=== PATIENT | male | born 1955 | race Caucasian/White ===

== ENCOUNTER → 2017-10-25 13:33 | Outpatient (CLI) | payer BC, SELFPAY ==
--- NOTE | 2017-10-25 13:33 | DT_ITS ---
This patient was seen during an EMR downtime October 21, 2017 - October 28, 2017. This patient may have a combination of paper and electronic documentation or all paper documentation. All documentation is viewable within the e-chart portion of [facility] for each patient visit.
--- NOTE | 2017-10-25 13:33 | DT_ITS ---
This patient was seen during an EMR downtime October 21, 2017 - October 28, 2017. This patient may have a combination of paper and electronic documentation or all paper documentation. All documentation is viewable within the e-chart portion of [facility] for each patient visit.
== END ==
PROVIDERS: Family Provider Internal Medicine; PCP Internal Medicine; Visit Provider Nurse Practitioner
DX: M79.662 Pain in left lower leg (principal)
CPT/HCPCS: 93971

== ENCOUNTER → 2017-10-29 14:01 | Outpatient (CLI) | payer BC, SELFPAY ==
--- NOTE | 2017-10-29 14:05 | CT_ITS ---
STUDY: CT ABDOMEN AND PELVIS WITH CONTRAST REASON FOR EXAM: Male, 62 years old. Suprapubic pain. RADIATION DOSAGE (If Supplied By Facility): CTDIvol = ( 18.10 ) mGy, DLP = ( 1239.42 ) mGycm TECHNIQUE: Transaxial images were obtained from the dome of the diaphragm to the symphysis pubis without oral contrast. 100 ml of Isovue 300 contrast was administered. Sagittal and coronal images were reconstructed. Individualized dose optimization techniques were used for this CT. COMPARISON: None. FINDINGS: The visualized lung bases are unremarkable. There is enlargement of the retrocrural lymph nodes the largest lymph node measures proximately 2.2 cm. The visualized portions of the heart are within normal limits. Normal liver. Normal gallbladder and extrahepatic biliary system. Normal spleen. Normal pancreas. Normal bilateral adrenal glands. Normal right kidney. Normal left kidney. Normal visualized stomach. Normal small intestine. Normal colon. The appendix is visualized and appears normal. Normal abdominal aorta. Normal inferior vena cava. Multiple enlarged retroperitoneal lymph nodes are noted the largest lymph node is in the left aortic region measures 7 6 x 3.5. Normal urinary bladder. Multiple enlarged lymph nodes are seen in the pelvis largest lymph node is in on left side measures 9 x 5 cm encasing the left external iliac vein. There is a partially occlusive thrombus in the left external iliac vein and the left common iliac veins. Normal abdominal wall. Normal osseous structures. CT/Abdomen/Pelvis W IV Cont ONLY IMPRESSION: Recurrent lymphoma involving the lymph nodes above and below the diaphragm and in the pelvis. Deep vein thrombosis in the left common iliac vein and left external iliac vein. N.B. : The above information has been verbally conveyed by Abida Ku MD to Lorena Escamilla, Referring Physician, on 10/29/2017 15:35:05 (ET). Electronically Signed: Abida Ku MD at 15:37 EDT Tel , Service support , N.B. : The above information has been verbally conveyed by Abida Ku MD to Lorena Escamilla, Referring Physician, on 10/29/2017 15:35:05 (ET).
[2017-10-29 14:30] LABS: CREATININE FINGERSTICK 1.1 mg/dL (0.70-1.30)
== END ==
PROVIDERS: Family Provider Internal Medicine; PCP Internal Medicine; Visit Provider Nurse Practitioner
DX: R10.2 Pelvic and perineal pain (principal)
CPT/HCPCS: 74177; Q9967

== ENCOUNTER → 2017-11-05 09:03 | Outpatient (CLI) | payer BC, SELFPAY ==
[2017-11-05] VITALS (10 sets, daily range): BP systolic 114–170; BP diastolic 62–94; PULSE 65–84; RESP 16–23; TEMP 36.5; O2SAT 68–97; BMI 31.3
--- NOTE | 2017-11-05 | ASPIGT_PTH ---
PATIENT: JOSE FRANCISCO SANTACRUZ LOC: CT U#:[id number] AGE/SX: 70/M ROOM: RE11/05/[address]: Dr. Zac Herzog DO : 1955 BED: DIS: SPEC #: [id number] RECD: 11/05/17 11:09 STATUS: RADHA CED #: [id number] ONDINA: 11/05/17 00:[address]: Zac Herzog DEPT: SURGICAL PATHOLOGY RECD BY: Vinicius Funes ENTERED: 11/05/17 11:11 SP TYPE: ASP RAD OTHR DR: Dr. Kylah Hanna DO Tissues: LYMPH NODE BIOPSY Procedures: FNA Specimen Adequacy Special Stain Group II Surgery Specimen Level IV Diff Quik Stain (control) Imprint (control) Cytology Other HEADER OPERATION: CT-guided left lymph node biopsy PRE-OP DIAGNOSIS: Left pelvic adenopathy TISSUE SUBMITTED: Left lymph node biopsy MICROSCOPIC DIAGNOSIS Left lymph node, CT-guided core biopsy: Consistent with involvement by non-Hodgkin diffuse large B-cell lymphoma, non-germinal center cell origin. Flow cytometry studies from [facility] shows B-cell lymphoma, large cell type, complete report is viewable in patient?s EMR. SJ:rg 11/07/17 COMMENT The specimen is evaluated at the time of biopsy by Dr. Haley. Immediate Evaluation = Atypical lymphocytes are noted, adequate for evaluation. Immunohistochemistry ([id number]) supports the above diagnosis. Please make reference to previous specimen ([id number]) fine needle aspiration, left axillary mass and fine needle aspiration, right axillary mass with diagnosis of suspicious for low-grade lymphoma. Case has been reviewed in consultation with Dr. Hall who concurs with the above diagnosis. IDC:AM MICROSCOPIC DESCRIPTION Slides are reviewed. GROSS DESCRIPTION Received in fixative is one container labeled with the patient's name and designated left lymph node, CT-guided core biopsy. The specimen consists of multiple irregular fragments of scales soft tissue that in aggregate measure 1.5 x 0.1 x <0.1 cm. The entire specimen is submitted in one cassette. A core is also submitted for flow cytometry study. One touch imprint is prepared at the time of core biopsy. / SJ:rg 11/05/17 TC:0 [facility]: [id number], [id number] ADDENDUM ADDENDUM ADDENDUM ADDENDUM ADDENDUM ADDENDUM ADDENDUM ADDENDUM ADDENDUM ADDENDUM 09/30/2018 09:05 ADDENDUM 09/30/2018 09:05 ADDENDUM 09/30/2018 09:05 ADDENDUM 09/30/2018 09:05 ADDENDUM 09/30/2018 09:05 This addendum is added to incorporate an outside pathology consultation report. The case was examined at [facility] (#[phone]) and the following diagnosis was rendered. Lymph node, left, site not specified, biopsy: Diffuse large B cell lymphoma, not otherwise specified. Please see complete above mentioned consultation report in EMR
--- NOTE | 2017-11-05 | IMM_PTH ---
PATIENT: JOSE FRANCISCO SANTACRUZ LOC: CT U#:[id number] AGE/SX: 70/M ROOM: RE11/05/[address]: Dr. Zac Herzog DO : 1955 BED: DIS: SPEC #: [id number] RECD: 11/06/17 10:30 STATUS: RADHA REQ #: [id number] ONDINA: 11/05/17 00:[address]: Zac Herzog DEPT: IMMUNOHISTOCHEMISTRY RECD BY: Nguyen Grayson ENTERED: 11/06/17 10:41 SP TYPE: IMMUNO OTHR DR: Dr. Kylah Hanna DO Tissues: Lymph node of pelvis, NOS Procedures: BCL-2 (add) BCL-6 (add) CD10 (add) CD20 (add) CD23 (add) CD30 (add) CD43 (add) CD45 (add) CD5 (add) CD79A (add) CYCLIN (add) KI-67 (add) MUM1 (add) C-MYC (add) CD3 (initial) PHYSICIAN & [address] [address] SPECIMEN INFORMATION: Tissue Source: Left lymph node biopsy Clinical Info: Left pelvic adenopathy Specimen Number: [id number] CPT code: 81532, 60296 x14 METHODOLOGY: Deparaffinized sections of prefer/formalin-fixed tissue or PAP/DQ stained slides are incubated with monoclonal/polyclonal antibodies/oligonucleotide probes. Localization is made via biotin free immunoperoxidase method. Appropriate controls are performed and reacted as expected. Results on target cell population are indicated in the following table: RESULTS: ANTIBODY / CLONE RESULT CD3 (PS1) negative CD5 (SP10) negative CD20 (L26) positive CD43 (L60) negative CD45 (RP2/18) positive CD79a (11E3) positive CD10 (56C6) negative CD23 (1B12) negative BCL-2 (bcl-2/100/D5) positive BCL-6 (SV721E/A8) positive, focal, weak Cyclin D1/BCL-1 (SP4) negative MUM1 (MRQ-43) positive C-MYC (Y69) positive (<50%) Ki-67 (30-9) positive (100%) CD30 (Jef-H2) negative These tests were developed and their performance characteristics determined by [facility]. They may not have been cleared or approved by the U.S. Food and Drug Administration. The FDA has determined that such clearance or approval is not necessary. INTERPRETATION: Left lymph node, biopsy: Consistent with involvement by Non-Hodgkin diffuse large B-cell lymphoma, nongerminal center cell origin. Case has been reviewed in consultation with Dr. Hall who concurs with the above diagnosis. IDC:[email or web address] SJ:joce 11/07/17
--- NOTE | 2017-11-05 09:22 | CT_ITS ---
PROCEDURE: CT GUIDED biopsy of the left pelvic mass. DATE: November 05, 2017. INDICATION: Male, 62 years old. Left pelvic mass. PHYSICIAN: Chris Nathan M.D. RADIATION DOSAGE (If Supplied By Facility): CTDIvol = ( 13 ) mGy, DLP = ( 438.64 ) mGycm. Individualized dose reduction techniques were utilized. PROCEDURE: The risks, benefits, and alternatives to the procedure were explained to the patient. The specific risk of hemorrhage requiring further treatment or intervention was detailed and accepted. Follow-up instructions were discussed with the patient as well. Written informed consent was obtained. The patient was brought into the CT suite and placed in the supine position. . An appropriate entry site was identified. The overlying skin was prepped and draped in the usual sterile fashion. 1% lidocaine was administered subcutaneously for local anesthesia. Conscious sedation was performed. Conscious sedation was started at 10:27 AM and terminated at 10:47 AM. The patient received 2 mg of Versed and 50 mcg of fentanyl intravenously. The patient was monitored by the department nurse. Under CT guidance, a total of 4 passes were performed utilizing 18-gauge core biopsy needle of the left pelvic mass. The specimens were then placed in the appropriate fluid and transported to the laboratory for analysis. Hemostasis was obtained. The patient tolerated the procedure well without immediate complications. CT/Biopsy/Inj or Needle Placement IMPRESSION: Successful CT guided biopsy of the left pelvic mass, as described above. Electronically Signed: Chris Nathan MD at 11:27 EDT Tel [phone], Service support ,
[2017-11-05 10:10] LABS: International Normalized Ratio 1.1; Prothrombin Time (Protime)PT. 13.8 SECONDS (11.7-14.9)
== END ==
PROVIDERS: Family Provider Internal Medicine; PCP Internal Medicine; Visit Provider Internal Medicine Hematology & Oncology
DX: R59.1 Generalized enlarged lymph nodes (principal); I10 Essential (primary) hypertension; Z79.01 Long term (current) use of anticoagulants; Z86.718 Personal history of other venous thrombosis and embolism
CPT/HCPCS: 38505; 36415; 77012; 85610; 85730; 88161; 88172; 88305; 88313; 88341; 88342; 99156; 99157; A4216

== ENCOUNTER → 2017-11-18 09:11 | Outpatient (CLI) | payer BC, SELFPAY | PROVIDERS: Family Provider Internal Medicine; PCP Internal Medicine; Visit Provider Internal Medicine Hematology & Oncology | DX: C83.30 Diffuse large B-cell lymphoma, unspecified site (principal) | CPT/HCPCS: 36569 ==

== ENCOUNTER → 2017-11-18 10:47 | Outpatient (CLI) | payer BC, SELFPAY ==
--- NOTE | 2017-11-18 09:00 | PET_ITS ---
EXAMINATION: FDG PET/CT INDICATIONS: A 62-year-old male with reported history of lymphoma presenting for initial staging examination. COMPARISON EXAMINATION: CT of the abdomen and pelvis report dated 10/29/17 INDEX LESION SIZE SUV LUGANO SCORE INTERPRETATION Bilateral-lateral neck, supraclavicular regions, left axilla 17.1 x 20.2-mm (largest) (frame 279) 16.0 (max) 5 Fulfills quantitative criteria for viable neoplasm Superior-subcarinal mediastinum 31.5 x 39.4-mm (largest) (frame 195) 16.8 (max) 5 Fulfills quantitative criteria for viable neoplasm Upper-lower abdominal retroperitoneum, bilateral hemithorax, left inguinal regions 8.0 x 13.7-cm (largest) (frame 92) 19.4 (max) 5 Fulfills quantitative criteria for viable neoplasm Appendicular, axial skeletal structures 11.7 (max) 5 Fulfills quantitative criteria for viable neoplasm Right lobe hepatic parenchyma segment 12.1-mm (frame 187) 3.5 ratio R 2.0 4 Fulfills quantitative criteria for viable neoplasm NON-INDEX LESION SIZE SUV LUGANO SCORE INTERPRETATION Skull base 12.8-mm (frame 300) 4.1 May be further investigated with magnetic resonance imaging secondary to quantitative degree of uptake TECHNIQUE: Following the intravenous administration of 13.57 mCi of F-18 deoxyglucose via the left forearm, multiplanar image acquisitions of the neck, chest, abdomen and pelvis to level of mid thigh, obtained at one hour post radiopharmaceutical administration contemporaneously interpreted with the current CT of the neck, chest, abdomen and pelvis to level of mid thigh, dated 11/18/[address] of the abdomen and pelvis report dated 10/29/17 reveal: SERUM GLUCOSE LEVEL: 96 mg/dl. HEIGHT: 69 inches. WEIGHT: 196 lbs. FINDINGS: 1. Increased glucose metabolism is demonstrated in the bilateral-lateral neck to include levels IIA-B, III, V-A, as well as the bilateral supraclavicular regions, left axilla. The corrected maximum calculated standard uptake value is 16.0. The largest individual hypermetabolic soft tissue density demonstrates a maximal axial diameter of 17.1-mm (transverse) x 20.2-mm (AP). The Lugano Deauville score is 5. 2. Multiple sites of increased glucose concentration are visualized in the superior-subcarinal anterior, middle and posterior mediastinum generating a corrected maximum calculated standard uptake value of 16.8. The Lugano Deauville score is 5. The largest individual hypermetabolic soft tissue density on review of CT of the thorax dated 11/18/17 is 31.5-mm (transverse) x 39.4-mm (AP). 3. Innumerable foci of increased radiopharmaceutical concentration extend from the upper to lower abdominal retroperitoneum and bilateral hemipelvis, upper abdomen in the right-left retrocrural distributions, left inguinal region. The corrected maximum calculated standard uptake value is 19.4. The Lugano Deauville score is 5. The maximal axial diameter of the largest individual hypermetabolic soft tissue density on review of CT of the abdomen and pelvis dated 11/18/17 is 8.0-cm (transverse) x 13.7-cm (AP). 4. Focal increased glucose concentration is demonstrated in the right lobe of the hepatic (2.3) parenchyma involving segment with a corrected maximum calculated standard uptake value of 3.5, with a lesion to liver background ratio approximating 2.0. The maximal axial diameter of the metabolic abnormality on review of CT of the abdomen dated 11/18/17 is 12.1-mm (AP). The Lugano Deauville score is 4. 5. An increase in FDG uptake is manifest in the distal sternum and fourth thoracic vertebra involving the transverse process to the left of the midline, bilateral proximal femurs generating a corrected maximum calculated standard uptake value of 11.7. The Lugano Deauville score is 5. 6. Normal physiologic distribution of the radiopharmaceutical is apparent in the splenic parenchyma, both renal units, bladder and visualized intestinal tract. The visualized portion of the cerebral cortex demonstrate symmetric and preserved glucose metabolism. Diffuse radiopharmaceutical concentration is noted in all four quadrants of the abdomen and pelvis. Focal increased glucose concentration is observed in the midline skull base rendering a corrected maximum calculated standard uptake value of 4.1. The maximal axial diameter of the metabolic abnormality on review of CT of the head dated 11/18/17 is 12.8-mm (transverse). Pertinent CT findings are as follows: CHEST: There is atherosclerotic calcification defined in the thoracic aorta without evidence of dilatation-aneurysm formation. Coronary arterial calcification is observed. Multiple additional bilateral axillary soft tissue densities with fatty hilus formation are non-glucose avid. There are no parenchymal densities-nodules noted in the right-left hemithorax demonstrating discernible increased glucose metabolism. ABDOMEN AND PELVIS: There is atherosclerotic calcification defined in the abdominal aorta without evidence of dilatation-aneurysm formation. Pelvic arterial calcification is visualized. Additional right-left inguinal soft tissue densities with fatty hilus formation are ametabolic. Calcification appears evident within the prostate gland and seminal vesicles without evidence of quantitatively significant enhanced radiopharmaceutical concentration. SKELETAL: Degenerative changes are noted in the cervical, thoracic and lumbar spine. PET/PET/CT Tumor Base -Thigh Init IMPRESSION: 1. ABNORMAL EXAMINATION INDICATIVE OF MALIGNANT VIABLE NEOPLASM. 2. Increased glucose metabolism noted in the bilateral-lateral neck, left axilla, right-left supraclavicular regions fulfills quantitative criteria for viable neoplasm. 3. Viable neoplastic transformation is noted in the superior-subcarinal mediastinum. (Laureen et al, Journal of Clinical Oncology 16:2142, 1998). 4. Facilitated FDG PET study concentration noted in the abdominal retroperitoneum and retrocrural regions, bilateral hemipelvis and left inguinal lymph node distributions, fulfills quantitative criteria for viable neoplasm. 5. Enhanced radiotracer concentration observed in the right lobe of the liver fulfills borderline quantitative criteria for viable neoplasm. (Bon et al, Archives of Surgery, 133:510 1998). 6. Osseous neoplastic infiltration is manifest in several locations with the appendicular and axial structures as articulated above. (Natasha, et al, Clinical Nuclear Medicine, 29:161, 2004). 7. The increase in glucose metabolism manifest in the skull base may be further investigated with magnetic resonance imaging. Electronic Signature Basil Neville D.O. Electronically Signed: Basil Neville DO at 23:18 EDT Tel , Service support ,
== END ==
PROVIDERS: Family Provider Internal Medicine; PCP Internal Medicine; Visit Provider Internal Medicine Hematology & Oncology
DX: C83.38 Diffuse large B-cell lymphoma, lymph nodes of multiple sites (principal)
CPT/HCPCS: 78815; A9552; A4216

== ENCOUNTER 2017-12-05 08:22 | Day surgery (SDC) | payer BC, SELFPAY ==
[2017-12-05] VITALS (8 sets, daily range): BP systolic 107–129; BP diastolic 61–80; PULSE 61–79; RESP 16; TEMP 36.3–36.9; O2SAT 96–99; BMI 26.8
--- NOTE | 2017-12-05 10:11 | PCM.IMDPSTOP ---
Immediate Post-Op Note Date of Procedure: 12/05/17 Primary Surgeon/Physician: Zakiya Phelps fuel manager: NOT,DEFINED Pre-Operative Diagnosis: diffuse B cell lymphoma, need for portacath Post-Operative Diagnosis: same Surgery/Procedure Performed:: placement of permanent indwelling tunnelled catheter in left subclavian vein with subcutaneous port Description of Surgical Findings:: normal left subclavian vein anatomy to SVC Estimated Blood Loss: < 5 ml Specimen's removed: none Type of Anesthesia:: Local MAC ASA Class: ASA2 Mod Systematic Disease - Admit VTE Documentation VTE Present on Admission: Yes - not on left lower extremity, recent DVT VTE Mechan Device Prophylaxis: SCD's
[2017-12-05] MEDS: Cefazolin 2 GM in 0.9% Normal Saline 100 ML IV (10:14)
--- NOTE | 2017-12-05 10:14 | OP.PN_ITS ---
Immediate Post-Op Note Date of Procedure: 12/05/17 Primary Surgeon/Physician: Zakiya Phelps chief optometry service: NOT,DEFINED Pre-Operative Diagnosis: diffuse B cell lymphoma, need for portacath Post-Operative Diagnosis: same Surgery/Procedure Performed:: placement of permanent indwelling tunnelled catheter in left subclavian vein with subcutaneous port Description of Surgical Findings:: normal left subclavian vein anatomy to SVC Estimated Blood Loss: < 5 ml Specimen's removed: none Type of Anesthesia:: Local MAC ASA Class: ASA2 Mod Systematic Disease - Admit VTE Documentation VTE Present on Admission: Yes - not on left lower extremity, recent DVT VTE Mechan Device Prophylaxis: SCD's
--- NOTE | 2017-12-05 10:14 | PCM.DC.POR ---
Discharge Diet: No Restrictions Discharge Activity: Return to Normal Activity, May not drive while taking narcotic pain medications. Call your doctor if your incision/area has: Continuous Slow Oozing, Foul Smelling Discharge Call your doctor if you observe: Fever of 101 or Higher Additional Dressing/Incision Instructions:: Leave dressing in place - oncology nurses will remove when receiving chemo. May get wet in shower. Do not soak - no tub baths/swimming Allergies/Adverse Reactions: Allergies No Known Allergies Allergy (Verified 11/29/17 08:09) Medications to take at Discharge Ascorbic Acid [Vitamin C] 1,000 mg PO DAILY@0800 04/02/13 Calcium Carb/Vitamin D [Caltrate-600 With Vit D Tab] 1 tab PO BIDCM 04/02/13 Magnesium 200 mg PO DAILY 04/02/13 Romulus-3 Fatty Acids/Fish Oil [Romulus 3 1,000 mg Softgel] 1 each PO DAILY 04/02/13 Allopurinol [Zyloprim] 300 mg PO DAILY 11/29/17 Lisinopril [Zestril] 10 mg PO DAILY 11/29/17 Ondansetron [Zofran] 8 mg PO Q8H PRN PRN 11/29/17 Oxycodone [Oxyir] 5 mg PO Q4H PRN PRN 11/29/17 Prednisone 50 mg PO BID 11/29/17 Rivaroxaban [Xarelto] 20 mg PO DAILY 11/29/17 Vitamin D3/Vitamin K2 (Mk4) [K2 Plus D3 Tablet] 1 each PO DAILY 11/29/17 Hydrocodone Bitart/Apap 5-325 [[place] 5MG-325MG] 1 tab PO Q6H PRN PRN 2 Days #5 tab 12/05/17 The following prescriptions were given: Hydrocodone Bitart/Apap 5-325 [[place] 5MG-325MG] 1 tab PO Q6H PRN PRN 2 Days #5 tab PRN Reason: Pain Primary Care Physician: Kylah Hanna DO [Primary Care Provider] - Test Results: Test results from this visit will be discussed in further detail at your follow-up appointment, if applicable. Please Follow Up With: Zakiya Phelps MD - call When: to be seen in 7-10 days, please call for date and time, thank you
--- NOTE | 2017-12-05 11:03 | OP.PCM_ITS ---
Report of Operation Date of Procedure: 12/05/17 Pre-Operative Diagnosis: diffuse B cell lymphoma, need for portacath Post-Operative Diagnosis: same Surgery/Procedure Performed:: placement of permanent indwelling tunnelled catheter in left subclavian vein with subcutaneous port Description of Surgical Findings:: normal left subclavian vein anatomy to SVC student life advisor: NOT,DEFINED Type of Anesthesia:: Local MAC Anesthesiologist: Frankie Lott Specimen's removed: none Estimated Blood Loss (mL): < 5 ml Fluids Replaced: 700 ml RL Description of Procedure: After informed consent was given, the patient was brought to the operating room and placed in the supine position. Appropriate time out protocol was followed. He was then given IV conscious sedation for anesthesia. The patient?s upper chest and neck were then prepped with a surgical skin preparation and sterile surgical drapes were placed. After proper landmarks were ascertained, the skin at the upper left chest area was then infiltrated with local anesthetic. A needle trocar was then inserted into the left subclavian vein and there was good aspiration of venous blood. A wire was then threaded into the needle trocar and this was visualized under fluoroscopy to ensure that the wire was in the left subclavian vein. Once this was done, then the needle trocar was removed. A small skin dwayne was made with an 11 blade knife at the wire entrance site. The dilator with the introducer sheath attached was then placed over the wire into the left subclavian vein via the Seldinger technique and this was visualized under fluoroscopy. The dilator and sheath were in proper position as visualized by fluoroscopy. The wire and dilator were then removed. The catheter was then threaded into the introducer sheath and was positioned with its tip at the junction of the superior vena cava and the right atrium as visualized under fluoroscopy. The catheter was flushed with a heparin saline mixture prior to placement. A subcutaneous pocket was then created caudad to the catheter insertion site. A transverse skin incision was made after the skin and subcutaneous tissues were infiltrated with local anesthetic. Blunt dissection was then used to create a space large enough for placement of the subcutaneous port. Hemostasis was carefully controlled with electrocautery. The port was sutured to the subcutaneous fascia using vicryl suture at three sites. The catheter was then tunneled into the subcutaneous pocket. The excess catheter was transected. The catheter was then attached to the subcutaneous port using powder and primer canning leader?s guidelines. The port was then placed in the subcutaneous pocket and the sutures were ligated. The subdermal incisional sites were reapproximated with interrupted vicryl suture. The skin was reapproximated with monocryl suture in a subcuticular fashion. Cavilon and steristrips were used for reinforcement of the skin closure and a sterile opsite dressing was applied. The patient tolerated the procedure well. Grafts/Implants Used: Power Port MRI Lot [id number] - Complications none noted - Admit VTE Documentation VTE Present on Admission: Yes VTE Mechan Device Prophylaxis: SCD's
--- NOTE | 2017-12-05 11:03 | RAD_ITS ---
STUDY: X-RAY CHEST REASON FOR EXAM: Male, 62 years old. Port placement. TECHNIQUE: Single AP portable view of the chest. COMPARISON: None. FINDINGS: A left-sided portacatheter has been placed. The tip is in the proximal portion of the superior vena cava. The lungs are clear and expanded. There is no demonstrated pleural abnormality. Normal size heart. Normal mediastinum and karyna. Normal visualized pulmonary arteries. There is atherosclerotic tortuosity of the aortic arch and descending thoracic aorta. There are diffuse degenerative changes of the visualized thoracic spine. Status post right shoulder replacement. There is no demonstrated abnormality of the visualized soft tissue structures of the upper abdomen. RAD/CXR for Line Placement IMPRESSION: The tip of the left portacatheter is in the proximal portion of the superior vena cava. Electronically Signed: Chris Nathan MD at 12:16 EDT Tel [phone], Service support ,
== END 2017-12-05 13:02 | disposition home or self-care (01) ==
LOC: SDC 08:22 → AC 08:23
PROVIDERS: Family Provider Internal Medicine; PCP Internal Medicine; Visit Provider Surgery
PROC: (CPT 36571; principal; 2017-12-05 09:50)
DX: C83.38 Diffuse large B-cell lymphoma, lymph nodes of multiple sites (principal); I10 Essential (primary) hypertension; Z79.01 Long term (current) use of anticoagulants; Z79.899 Other long term (current) drug therapy; Z79.891 Long term (current) use of opiate analgesic; Z79.52 Long term (current) use of systemic steroids; Z86.718 Personal history of other venous thrombosis and embolism
CPT/HCPCS: 36571; 71045; 77001; J7120; C1788

== ENCOUNTER 2018-01-11 13:21 | Inpatient (IN) | payer BC, SELFPAY ==
[2018-01-11] VITALS (7 sets, daily range): BP systolic 112–149; BP diastolic 68–83; PULSE 67–78; RESP 12–20; TEMP 36.8–37.3; O2SAT 94–99; BMI 26.5; BMI 25.6
[2018-01-11] MEDS: Acetaminophen 500 MG Tablet 1000 MG PO (14:11)
[2018-01-11] MEDS: 0.9% Normal Saline 1,000 ML 150 ML IV ×2 (14:12→17:08)
[2018-01-11 14:32] LABS: AST(SGOT) 17 U/L (15-37); Alanine Aminotransfer ALT/SGPT 30 U/L (16-61); Albumin, Serum 2.6 g/dL (3.2-5.0); Alkaline Phosphatase 71 U/L (45-117); Anion Gap 8 (5-15); BUN 14 mg/dL (7-18); BUN/Creat Ratio 24.8 RATIO (10-20); Bilirubin, Direct 0.11 mg/dL (0.00-0.30); Calcium,Total 8.3 mg/dL (8.5-10.1); Chloride 102 mmol/L (98-107); Creatinine, Serum 0.56 mg/dL (0.70-1.30); EST Glomerular Filtration Rate 156 mL/min (>60); Est Glom Filt Rate - Afr Amer 189 mL/min (>60); Estimated Creatinine Clearance 138.52 ml/min; Globulin 3.1 g/dL (2.2-4.2); Glucose 90 mg/dL (74-106); Hematocrit 25.1 % (40-54); Hemoglobin 8.1 g/dl (13.0-16.5); Mean Corp Hgb Conc 32.3 g/gl (32-36); Mean Corpuscular Hgb 28.4 pg (27.0-32.0); Mean Corpuscular Volume 88.1 fL (80-94); Mean Platelet Vol. 9.8 fl (6.2-12.0); Platelet Count 53 K/mm3 (150-450); Potassium 4.1 mmol/L (3.5-5.1); Protein, Total 5.7 g/dL (6.4-8.2); RBC Distribution Width CV 13.7 % (11.6-14.6); RBC Distribution Width SD 44.4 fl (35.1-43.9); Red Blood Count 2.85 M/mm3 (4.6-6.2); Sodium Level 137 mmol/L (136-145)
[2018-01-11 14:45] LABS: Bacteria 0 SEEN /hpf (None Seen); Mucous, Urine 0 SEEN /hpf (<or=2+); Red Blood Cells-Urine 0 SEEN /hpf (0-5); Squamous Epithelial Cells - UA 0 SEEN /hpf (0-5); White Blood Cells 0 SEEN /hpf (0-5)
[2018-01-11 14:48] LABS: Color, Urine Yellow (Yellow); Glucose, Dipstick Normal (Normal); Ketone-Dipstick Negative (Negative); Leukocyte Esterase-Dipstick Negative /ul (Negative); Nitrite-Dipstick Negative (Negative); Occult Blood-Urine Negative /ul (Negative); Protein-Dipstick Negative (Negative); Urine Bilirubin Dipstick Negative (Negative); Urine Clarity Clear (Clear); Urine Urobilinogen Normal (Normal)
--- NOTE | 2018-01-11 14:51 | ED.RN ---
wbc 0.86 hbg 8.1 plt [address] called from [address] lab. dr abad aware
[2018-01-11 15:01] LABS: Differential Indicated MANUAL DIFF; POSITIVE COUNT YES; POSITIVE DIFFERENTIAL YES; POSITIVE MORPHOLOGY YES
[2018-01-11 15:10] LABS: Lymphocyte 21 % (19-41); Monocyte 32 % (0-10); Neutrophil-Band 11 % (0-5); Total Cells Counted 100 (MANUAL DIFF)
[2018-01-11 15:12] LABS: Platelet Estimate MKD DEC (ADEQ); Red Cell Morphology NORM C+C NORMAL (NORM C&C)
[2018-01-11 15:13] LABS: Neutrophil-Segmented 36 % (47-70)
--- NOTE | 2018-01-11 15:15 | ED.DCSUM_ITS ---
- ER Visit Summary Date of Service: 01/11/18 Chief Complaint: Fever and cough History of Present Illness: The patient is a 62 M with cough and sore throat for the past 4 days. He went to urgent care and was noted to have a fever of 100.2. Because the patient is currently chemotherapy for lymphoma he was sent to the emergency room. His last chemotherapy treatment was 9 days ago. Patient is also currently on Xarelto for a DVT in his left groin. Patient does report sore throat and cough with white sputum. He denies knowledge of fever at home. He has no abdominal pain, vomiting, or diarrhea. Physical Examination: Vital signs include a blood pressure of 113/68, temperature 99.2, heart rate 72, respiratory rate 14, pulse ox 98% on room air. Patient sitting upright in bed no acute distress. Head neck examination was TMs to be clear bilaterally. He has moist mucous membranes. He has mild posterior pharyngeal erythema. Uvula is midline. He speaks with a strong voice. Heart is regular rate and rhythm. Lung sounds are grossly clear. Abdomen is soft nontender. Skin examination reveals no rash or lesions. Test Results: EKG is sinus at 68 with no sign of acute ischemia. CBC reveals pancytopenia with a white count of 0.9, hemoglobin 8.1, platelet count of 53, 000. Chemistry studies, LFTs, urinalysis are normal. Chest x-ray is read as patchy left basilar airspace disease and/or atelectasis. This could her present pneumonia. Emergency Department Course and Treatment: Patient is given IV fluids along with p.o. Tylenol for fever. On repeat evaluation patient is resting comfortably. Vitals remained stable. I did speak with , his oncologist. He states that the patient was in the office 2 days ago and had blood work that showed neutropenia at that point also. He states the patient did get Neulasta. He would like the patient admitted with IV meropenem until his blood counts start to improve. This is been discussed with the patient and family. Treatment Plan: [] Disposition: Admit Impression: 1. Neutropenia secondary to chemotherapy 2. Left lower lobe pneumonia This note was generated with Virdia[employer] software. It may contain incorrect words, spelling, and punctuation that were not noted in review of the chart prior to signing ED Disposition - Plan for ED Patient: Chief Complaint: Fever Referrals: Kylah Hanna DO [Primary Care Provider] -
--- NOTE | 2018-01-11 16:16 | PCM.HP.STD ---
Problem List (1) Sepsis Status: Acute Qualifiers: Sepsis type: sepsis due to unspecified organism Qualified Code(s): A41.9 - Sepsis, unspecified organism (2) Neutropenic fever Status: Acute History of Present Illness Date of Admission: 01/11/18 Chief Complaint: fever. malaise The patient is a 62 year old M who has not been feeling well for the past few days. Patient just been having general malaise. Patient has been coughing but it has been productive only for some white slimy phlegm. Presented in urgent care and it was noted over 102 Fahrenheit and sent to the emergency room. In the emergency room, patient was noted to have a white count of 900, bands of 11. Patient had a chest x-ray that was concerning for left-sided patchy infiltrate and patient did receive meropenem. Dr. Herzog, of oncology, was contacted and stated the patient had recently received Neulasta. Patient is currently undergoing chemotherapy for lymphoma. [] Past Medical History Medical History: Medical History (Last Updated 01/11/18 @ 16:18 by Rai Moran DO) Lymphoma C85.90 Pancytopenia D61.818 VTE (venous thromboembolism) I82.90 HTN (hypertension) I10 Allergies No Known Allergies Allergy (Verified 01/11/18 13:25) Home Medications: Ambulatory Orders Medication Instructions Recorded Ascorbic Acid [Vitamin C] 1,000 mg PO DAILY@0800 04/02/13 Calcium Carb/Vitamin D 1 tab PO BIDCM 04/02/13 [Caltrate-600 With Vit D Tab] Magnesium 200 mg PO DAILY 04/02/13 [place]-3 Fatty Acids/Fish Oil 1 each PO DAILY 04/02/13 [[place] 3 1,000 mg Softgel] Allopurinol [Zyloprim] 300 mg PO DAILY 11/29/17 Lisinopril [Zestril] 10 mg PO DAILY 11/29/17 Ondansetron [Zofran] 8 mg PO Q8H PRN PRN 11/29/17 Oxycodone [Oxyir] 5 mg PO Q4H PRN PRN 11/29/17 Prednisone 50 mg PO BID 11/29/17 Rivaroxaban [Xarelto] 20 mg PO DAILY 11/29/17 Vitamin D3/Vitamin K2 (Mk4) [K2 1 each PO DAILY 11/29/17 Plus D3 Tablet] Hydrocodone Bitart/Apap 5-325 1 tab PO Q6H PRN PRN 2 Days #5 tab 12/05/17 [[place] 5MG-325MG] Smoking Status: Never smoker Tobacco Use: Non-smoker Alcohol: Rare Drugs: None - *Family History Paternal History Items: Cancer - lung Review of Systems Constitutional: Reports: Chills, Fever, Malaise, Weakness. Denies: Anorexia Eyes: Denies: Blurred vision, Double vision HEENT: Reports: Ear Pain - Occasional left ear pain when he chews. Patient was recently treated for sinus infection and had more persistent ear pain at that time on the left. Patient states that is now more intermittent., Post Nasal Drip, Sinus Congestion. Denies: Difficulty Hearing Cardiovascular: Denies: Chest Pain, Edema Respiratory: Reports: Cough, Sputum production. Denies: Shortness of Breath Gastrointestinal: Denies: Abdominal Pain, Nausea, Vomiting Genitourinary: Denies: Dysuria Musculoskeletal: Denies: Joint Pain, Joint Tenderness Skin: Denies: Rash, Wounds Neurological: Denies: Numbness, Tingling, Focal weakness Psychiatric: Denies: Anxiety, Depression Endocrine: Reports: Heat/ Cold Intolerance - Always cold Hematologic/ Lymphatic: Reports: Hx of blood clot. Denies: Easy Bruising, Easy Bleeding Comment: All review of systems are negative except as mentioned in the history of present illness and the other review of systems. VTE Information - Inpt Only VTE Present on Admission: No VTE Pharm Prophylaxis ordered?: Yes Patient Problems: Active and Suspected Problems Sepsis (Acute) Neutropenic fever (Acute) - Physical Exam General: Alert, No apparent distress HEENT: Atraumatic, Normocephalic, TM's Clear, - - No scleral icterus. Tympanic membranes are intact without any effusion or erythema. Patient did have some redness on his the soft palate as well as posterior pharynx. On visualizing his septum patient had defects in the anterior portion of septum. Neck: No Nodes, Thyroid Normal Size and Texture Lungs: Clear to auscultation, No rhonchi, No wheeze Cardiovascular: Regular rate, Regular Rhythm, Normal S1, Normal S2, No murmurs Abdomen: Bowel Sounds Present, Soft, Non Tender, Non-Distended, No Hepato-splenomegaly Extremities: No edema, No Calf Tenderness Skin: No rashes, No breakdown Musculoskeletal: No Tenderness to Palpation of Joints or Extremities, No Muscle Wasting Lymphatic: - - No cervical lymphadenopathy Neurological: Neuro grossly intact, Sensory exam intact to light touch and pain, - - No clonus. Psych/Mental Status: Normal Affect, Appropriate Vital Signs Temp Pulse Resp BP Pulse Ox 36.8 C 69 17 112/68 94 01/11/18 15:44 01/11/18 15:44 01/11/18 15:44 01/11/18 15:44 01/11/18 15:44 Laboratory Results 01/11/18 01/11/18 01/11/18 14:40 14:00 14:00 WBC 0.9 L* RBC 2.85 L Hgb 8.1 L Hct 25.1 L MCV 88.1 MCH 28.4 MCHC 32.3 RDW 13.7 RDW Differential 44.4 H Plt Count 53 L MPV 9.8 Neut % (Auto) Not Reportable Absolute Neuts (auto) Not Reportable Total Counted 100 Neutrophils % (Manual) 36 L Band Neutrophils % 11 H Lymphocytes % (Manual) 21 Monocytes % (Manual) 32 H Metamyelocytes % Not Reportable Diff Path Review May foll Platelet Estimate MKD DEC RBC Morphology NORM C+C Sodium 137 Potassium 4.1 Chloride 102 Carbon Dioxide 27.0 Anion Gap 8 BUN 14 Creatinine 0.56 L Estim Creat Clear Calc 138.52 Est GFR (MDRD) Af Amer 189 Est GFR (MDRD) Non-Af 156 BUN/Creatinine Ratio 24.8 H Glucose 90 Calcium 8.3 L Total Bilirubin 0.30 Direct Bilirubin 0.11 AST 17 ALT 30 Alkaline Phosphatase 71 Total Protein 5.7 L Albumin 2.6 L Globulin 3.1 Urine Color Yellow Urine Clarity Clear Urine pH 8.0 Ur Specific [place] 1.010 Urine Protein Negative Urine Glucose (UA) Normal Urine Ketones Negative Urine Occult Blood Negative Urine Nitrite Negative Urine Bilirubin Negative Urine Urobilinogen Normal Ur Leukocyte Esterase Negative Urine RBC 0 SEEN Urine WBC 0 SEEN Ur Squamous Epith Cells 0 SEEN Urine Bacteria 0 SEEN Urine Mucus 0 SEEN EKG reviewed and showed normal sinus rhythm with acute changes. Chest x-ray reviewed and shows some patchy infiltrates in the left but not significantly changed from previous chest x-rays. Assessment/Plan All Active Problems Sepsis (Acute) Neutropenic fever (Acute) 1. Sepsis Unclear etiology but could be pneumonia Will check blood cultures already drawn in the emergency room Urinalysis and urine culture already negative Check strep and Legionella antigens 2. Neutropenic fever Unclear etiology Meropenem No indication for gram-positive coverage at this time 3. Pancytopenia All patient's parameters are down from 2 years ago I suspect is related with his chemotherapy Patient did recently receive Neulasta which will hopefully help stimulate his white cells in the coming days Monitor his other counts Consult oncology for further assistance No indication for any transfusions at this time 4. Venous thromboembolic disease Patient recently diagnosed with a DVT and is on Xarelto Given that this may be malignancy and do she may be looking at lifelong therapy. But may also consider Lovenox. 5. Lymphoma I do not have all the records so I am not as his non-Hodgkin's Oncology on consult and determine when patient can resume his treatments 6. DVT prophylaxis: Patient is anticoagulated. Code Visit Inpatient E&M: 61387 Init Hosp L3
--- NOTE | 2018-01-11 16:20 | HP.PCM_ITS ---
Problem List (1) Sepsis Status: Acute Qualifiers: Sepsis type: sepsis due to unspecified organism Qualified Code(s): A41.9 - Sepsis, unspecified organism (2) Neutropenic fever Status: Acute History of Present Illness Date of Admission: 01/11/18 Chief Complaint: fever. malaise The patient is a 62 year old M who has not been feeling well for the past few days. Patient just been having general malaise. Patient has been coughing but it has been productive only for some white slimy phlegm. Presented in urgent care and it was noted over 102 Fahrenheit and sent to the emergency room. In the emergency room, patient was noted to have a white count of 900, bands of 11. Patient had a chest x-ray that was concerning for left-sided patchy infiltrate and patient did receive meropenem. Dr. Herzog, of oncology, was contacted and stated the patient had recently received Neulasta. Patient is currently undergoing chemotherapy for lymphoma. [] Past Medical History Medical History: Medical History (Last Updated 01/11/18 @ 16:18 by Rai Moran DO) Lymphoma C85.90 Pancytopenia D61.818 VTE (venous thromboembolism) I82.90 HTN (hypertension) I10 Allergies No Known Allergies Allergy (Verified 01/11/18 13:25) Home Medications: Ambulatory Orders Medication Instructions Recorded Ascorbic Acid [Vitamin C] 1,000 mg PO DAILY@0800 04/02/13 Calcium Carb/Vitamin D 1 tab PO BIDCM 04/02/13 [[place]-600 With Vit D Tab] Magnesium 200 mg PO DAILY 04/02/13 [place]-3 Fatty Acids/Fish Oil 1 each PO DAILY 04/02/13 [[place] 3 1,000 mg Softgel] Allopurinol [Zyloprim] 300 mg PO DAILY 11/29/17 Lisinopril [Zestril] 10 mg PO DAILY 11/29/17 Ondansetron [Zofran] 8 mg PO Q8H PRN PRN 11/29/17 Oxycodone [Oxyir] 5 mg PO Q4H PRN PRN 11/29/17 Prednisone 50 mg PO BID 11/29/17 Rivaroxaban [Xarelto] 20 mg PO DAILY 11/29/17 Vitamin D3/Vitamin K2 (Mk4) [K2 1 each PO DAILY 11/29/17 Plus D3 Tablet] Hydrocodone Bitart/Apap 5-325 1 tab PO Q6H PRN PRN 2 Days #5 tab 12/05/17 [[place] 5MG-325MG] Smoking Status: Never smoker Tobacco Use: Non-smoker Alcohol: Rare Drugs: None - *Family History Paternal History Items: Cancer - lung Review of Systems Constitutional: Reports: Chills, Fever, Malaise, Weakness. Denies: Anorexia Eyes: Denies: Blurred vision, Double vision HEENT: Reports: Ear Pain - Occasional left ear pain when he chews. Patient was recently treated for sinus infection and had more persistent ear pain at that time on the left. Patient states that is now more intermittent., Post Nasal Drip, Sinus Congestion. Denies: Difficulty Hearing Cardiovascular: Denies: Chest Pain, Edema Respiratory: Reports: Cough, Sputum production. Denies: Shortness of Breath Gastrointestinal: Denies: Abdominal Pain, Nausea, Vomiting Genitourinary: Denies: Dysuria Musculoskeletal: Denies: Joint Pain, Joint Tenderness Skin: Denies: Rash, Wounds Neurological: Denies: Numbness, Tingling, Focal weakness Psychiatric: Denies: Anxiety, Depression Endocrine: Reports: Heat/ Cold Intolerance - Always cold Hematologic/ Lymphatic: Reports: Hx of blood clot. Denies: Easy Bruising, Easy Bleeding Comment: All review of systems are negative except as mentioned in the history of present illness and the other review of systems. VTE Information - Inpt Only VTE Present on Admission: No VTE Pharm Prophylaxis ordered?: Yes Patient Problems: Active and Suspected Problems Sepsis (Acute) Neutropenic fever (Acute) - Physical Exam General: Alert, No apparent distress HEENT: Atraumatic, Normocephalic, TM's Clear, - - No scleral icterus. Tympanic membranes are intact without any effusion or erythema. Patient did have some redness on his the soft palate as well as posterior pharynx. On visualizing his septum patient had defects in the anterior portion of septum. Neck: No Nodes, Thyroid Normal Size and Texture Lungs: Clear to auscultation, No rhonchi, No wheeze Cardiovascular: Regular rate, Regular Rhythm, Normal S1, Normal S2, No murmurs Abdomen: Bowel Sounds Present, Soft, Non Tender, Non-Distended, No Hepato- splenomegaly Extremities: No edema, No Calf Tenderness Skin: No rashes, No breakdown Musculoskeletal: No Tenderness to Palpation of Joints or Extremities, No Muscle Wasting Lymphatic: - - No cervical lymphadenopathy Neurological: Neuro grossly intact, Sensory exam intact to light touch and pain , - - No clonus. Psych/Mental Status: Normal Affect, Appropriate Vital Signs Temp Pulse Resp BP Pulse Ox 36.8 C 69 17 112/68 94 01/11/18 15:44 01/11/18 15:44 01/11/18 15:44 01/11/18 15:44 01/11/18 15:44 Laboratory Results 01/11/18 01/11/18 01/11/18 14:40 14:00 14:00 WBC 0.9 L* RBC 2.85 L Hgb 8.1 L Hct 25.1 L MCV 88.1 MCH 28.4 MCHC 32.3 RDW 13.7 RDW Differential 44.4 H Plt Count 53 L MPV 9.8 Neut % (Auto) Not Reportable Absolute Neuts (auto) Not Reportable Total Counted 100 Neutrophils % (Manual) 36 L Band Neutrophils % 11 H Lymphocytes % (Manual) 21 Monocytes % (Manual) 32 H Metamyelocytes % Not Reportable Diff Path Review May foll Platelet Estimate MKD DEC RBC Morphology NORM C+C Sodium 137 Potassium 4.1 Chloride 102 Carbon Dioxide 27.0 Anion Gap 8 BUN 14 Creatinine 0.56 L Estim Creat Clear Calc 138.52 Est GFR (MDRD) Af Amer 189 Est GFR (MDRD) Non-Af 156 BUN/Creatinine Ratio 24.8 H Glucose 90 Calcium 8.3 L Total Bilirubin 0.30 Direct Bilirubin 0.11 AST 17 ALT 30 Alkaline Phosphatase 71 Total Protein 5.7 L Albumin 2.6 L Globulin 3.1 Urine Color Yellow Urine Clarity Clear Urine pH 8.0 Ur Specific [place] 1.010 Urine Protein Negative Urine Glucose (UA) Normal Urine Ketones Negative Urine Occult Blood Negative Urine Nitrite Negative Urine Bilirubin Negative Urine Urobilinogen Normal Ur Leukocyte Esterase Negative Urine RBC 0 SEEN Urine WBC 0 SEEN Ur Squamous Epith Cells 0 SEEN Urine Bacteria 0 SEEN Urine Mucus 0 SEEN EKG reviewed and showed normal sinus rhythm with acute changes. Chest x-ray reviewed and shows some patchy infiltrates in the left but not significantly changed from previous chest x-rays. Assessment/Plan All Active Problems Sepsis (Acute) Neutropenic fever (Acute) 1. Sepsis * Unclear etiology but could be pneumonia * Will check blood cultures already drawn in the emergency room * Urinalysis and urine culture already negative * Check strep and Legionella antigens 2. Neutropenic fever * Unclear etiology * Meropenem * No indication for gram-positive coverage at this time 3. Pancytopenia * All patient's parameters are down from 2 years ago * I suspect is related with his chemotherapy * Patient did recently receive Neulasta which will hopefully help stimulate his white cells in the coming days * Monitor his other counts * Consult oncology for further assistance * No indication for any transfusions at this time 4. Venous thromboembolic disease * Patient recently diagnosed with a DVT and is on Xarelto * Given that this may be malignancy and do she may be looking at lifelong therapy. But may also consider Lovenox. 5. Lymphoma * I do not have all the records so I am not as his non-Hodgkin's * Oncology on consult and determine when patient can resume his treatments 6. DVT prophylaxis: Patient is anticoagulated. Code Visit Inpatient E&M: 16295 Init Hosp L3
[2018-01-12] VITALS (7 sets, daily range): BP systolic 114–126; BP diastolic 68–77; PULSE 67–76; RESP 16–20; TEMP 37.2–38.2; O2SAT 94–96
[2018-01-12 00:32] LABS: Absolute Lymphocyte Count 0.19 X10^3/ul (0.83-4.51); Absolute Neutrophil Count 0.4 X10^3/uL (2.0-7.7); Lymphocyte # 0.19 X10^3/ul (4.0); Neutrophil # 0.42 X10^3/uL (2.7-7.7)
[2018-01-12] MEDS: Acetaminophen 325 MG Tablet 650 MG PO ×3 (03:46→20:39)
[2018-01-12] MEDS: guaiFENesin 10 ML UDC (200MG/10ML) PO ×3 (03:46→15:25)
[2018-01-12 06:56] LABS: Absolute Lymphocyte Count 0.25 X10^3/ul (0.83-4.51); Absolute Neutrophil Count 0.9 X10^3/uL (2.0-7.7); Basophil# 0.01 X10^3/uL; Basophil% 0.7 % (0-1); Eosinophil# 0.01 X10^3/uL; Eosinophils% 0.7 % (0-5); Hematocrit 23.9 % (40-54); Hemoglobin 7.7 g/dl (13.0-16.5); Lymphocyte # 0.25 X10^3/ul (4.0); Lymphocyte % 18.7 % (19-41); Mean Corp Hgb Conc 32.2 g/gl (32-36); Mean Corpuscular Hgb 28.6 pg (27.0-32.0); Mean Corpuscular Volume 88.8 fL (80-94); Mean Platelet Vol. 11.3 fl (6.2-12.0); Monocyte# 0.19 X10^3/uL; Monocyte% 14.2 % (0-10); Neutrophil # 0.86 X10^3/uL (2.7-7.7); Neutrophil % 64.2 % (47-70); Platelet Count 47 K/mm3 (150-450); RBC Distribution Width CV 14.1 % (11.6-14.6); RBC Distribution Width SD 45.5 fl (35.1-43.9); Red Blood Count 2.69 M/mm3 (4.6-6.2)
[2018-01-12 07:11] LABS: Differential Indicated SCAN CRITERIA MET; POSITIVE COUNT YES; POSITIVE DIFFERENTIAL YES; POSITIVE MORPHOLOGY YES; White Blood Count 1.3 K/mm3 (4.4-11.0)
[2018-01-12 07:22] LABS: Anion Gap 9 (5-15); BUN 10 mg/dL (7-18); BUN/Creat Ratio 15.8 RATIO (10-20); Calcium,Total 8.1 mg/dL (8.5-10.1); Chloride 106 mmol/L (98-107); Creatinine, Serum 0.63 mg/dL (0.70-1.30); EST Glomerular Filtration Rate 137 mL/min (>60); Est Glom Filt Rate - Afr Amer 165 mL/min (>60); Estimated Creatinine Clearance 123.13 ml/min; Glucose 98 mg/dL (74-106); Sodium Level 140 mmol/L (136-145)
[2018-01-12 07:44] LABS: Platelet Estimate MOD DEC (ADEQ)
[2018-01-12 07:45] LABS: Differential Comment SCANNED
[2018-01-12] MEDS: Rivaroxaban 20 MG Tablet PO (09:47)
--- NOTE | 2018-01-12 11:35 | PCM.PN.HOSP ---
Patient Problems: Active and Suspected Problems (Last Updated 01/11/18 @ 16:18 by Rai Moran DO) Sepsis (Acute) Neutropenic fever (Acute) Subjective: No new events overnight. Vitals/I&O's: Vital Signs Temp Pulse Resp BP Pulse Ox 37.4 C H 70 18 117/71 94 01/12/18 09:40 01/12/18 09:40 01/12/18 09:40 01/12/18 09:40 01/12/18 09:40 Oxygen Delivery Method Room Air Weight: 78.7 kg Body Mass Index (BMI) 25.6 Intake and Output for Last 24 Hours 01/10/18 01/11/18 01/12/18 23:59 23:59 23:59 Intake Total 859.9 / 859.9 702 / 702 Balance 859.9 / 859.9 702 / 702 General: Alert, No apparent distress HEENT: Atraumatic, Normocephalic Oral: Moist Mucosa, No Gingival or Mucosal Lesions/ Ulcerations Neck: No Nuchal Rigidity, Thyroid Normal Size and Texture Lungs: Clear to auscultation, Normal air movement, No rhonchi, No wheeze Cardiovascular: Regular rate, Regular Rhythm, Normal S1, Normal S2, No murmurs Abdomen: Bowel Sounds Present, Soft, Non Tender, Non-Distended, No Hepato-splenomegaly Extremities: No edema, No Calf Tenderness Skin: No rashes, No breakdown Psych/Mental Status: Normal Affect, Appropriate Laboratory Results 01/12/18 06:00: WBC 1.3 L*, RBC 2.69 L, Hgb 7.7 L, Hct 23.9 L, MCV 88.8, MCH 28.6, MCHC 32.2, RDW 14.1, RDW Differential 45.5 H, Plt Count 47 L*, MPV 11.3, Immature Gran % (Auto) 1.500 H, Neut % (Auto) 64.2, Lymph % (Auto) 18.7 L, [place] % (Auto) 14.2 H, Eos % (Auto) 0.7, Baso % (Auto) 0.7, Absolute Neuts (auto) 0.9 L, Absolute Lymphs (auto) 0.25 L, Total Counted Not Reportable, Differential Comment SCANNED, Diff Path Review September, Platelet Estimate MOD DEC 01/12/18 06:00: Sodium 140, Potassium 4.0, Chloride 106, Carbon Dioxide 25.0, Anion Gap 9, BUN 10, Creatinine 0.63 L, Estim Creat Clear Calc 123.13, Est GFR (MDRD) Af Amer 165, Est GFR (MDRD) Non-Af 137, BUN/Creatinine Ratio 15.8, Glucose 98, Calcium 8.1 L Current Medications Acetaminophen (Tylenol) 650 mg PO Q4H PRN PRN PRN Reason: Temp > 100 F Last Admin: 01/12/18 03:46 Dose: 650 mg Hydrocodone Bitart/Acetaminophen ([place] 5mg-325mg) 1 tablet PO Q6H PRN PRN PRN Reason: PAIN Albuterol Sulfate (Ventolin Aerosols) 2.5 mg INHALATION Q2H PRN PRN PRN Reason: shortness of breath. Guaifenesin (Robitussin) 10 ml PO Q4H PRN PRN PRN Reason: COUGH Last Admin: 01/12/18 09:47 Dose: 10 ml Meropenem 1 gm/ Sodium (Chloride) 120 mls @ 33 mls/hr IV Q8 [facility] Last Admin: 01/12/18 05:26 Dose: 33 mls/hr Magnesium Hydroxide (Milk Of Magnesia) 30 ml PO DAILY PRN PRN PRN Reason: Constipation Nutritional Formula (Lactose Free) (Ensure Enlive) 120 ml PO 4X/DAY [facility] Last Admin: 01/12/18 09:47 Dose: 120 ml Ondansetron HCl (Zofran) 8 mg PO Q8H PRN PRN PRN Reason: NAUSEA Ondansetron HCl (Zofran) 4 mg IV Q8H PRN PRN PRN Reason: Nausea Oxycodone HCl (Oxyir) 5 mg PO Q4H PRN PRN PRN Reason: PAIN Rivaroxaban (Xarelto) 20 mg PO DAILYCM [facility] Last Admin: 01/12/18 09:47 Dose: 20 mg Sodium Chloride () 5 - 30 ml IV UD PRN PRN Reason: SALINE FLUSH Medical Necessity - Tobacco Use Smoking Status: Never smoker Tobacco Use: Non-smoker Assessment/Plan All Active Problems (Last Updated 01/11/18 @ 16:18 by Rai Moran DO) Sepsis (Acute) Neutropenic fever (Acute) 1. Sepsis Unclear etiology but could be pneumonia Will check blood cultures already drawn in the emergency room Urinalysis and urine culture already negative strep and Legionella antigens negative 2. Neutropenic fever Unclear etiology Meropenem No indication for gram-positive coverage at this time 3. Pancytopenia All patient's parameters are down from 2 years ago I suspect is related with his chemotherapy Patient did recently receive Neulasta which will hopefully help stimulate his white cells in the coming days Monitor his other counts Consult oncology for further assistance No indication for any transfusions at this time WBC up slightly today. 4. Venous thromboembolic disease Patient recently diagnosed with a DVT and is on Xarelto Given that this may be malignancy-induced and do she may be looking at lifelong therapy. But may also consider Lovenox. 5. Lymphoma I do not have all the records so I am not as his non-Hodgkin's Oncology on consult and determine as to when patient can resume his treatments 6. DVT prophylaxis: Patient is anticoagulated. Code Visit Inpatient E&M: 86203 Subs Hosp L2
[2018-01-12] MEDS: Magnesium Hydroxide 30 ML UDC PO (22:29)
--- NOTE | 2018-01-13 00:09 | NURSING ---
went to give pt sleeping pill as requested and pt was asleep. did not awaken him. will continue to monitor.
[2018-01-13] MEDS: Zolpidem Tartrate 5 MG Tablet PO ×2 (00:34→21:59)
[2018-01-13] MEDS: Acetaminophen 325 MG Tablet 650 MG PO ×3 (03:38→21:59)
[2018-01-13 03:49] VITALS: BP 146/98; PULSE 72; RESP 18; TEMP 39.1; O2SAT 100
[2018-01-13 05:30] VITALS: TEMP 38
[2018-01-13 06:16] LABS: Hematocrit 24.6 % (40-54); Hemoglobin 7.8 g/dl (13.0-16.5); Mean Corp Hgb Conc 31.7 g/gl (32-36); Mean Corpuscular Hgb 28.7 pg (27.0-32.0); Mean Corpuscular Volume 90.4 fL (80-94); Mean Platelet Vol. 10.4 fl (6.2-12.0); Platelet Count 62 K/mm3 (150-450); RBC Distribution Width CV 13.6 % (11.6-14.6); RBC Distribution Width SD 42.8 fl (35.1-43.9); Red Blood Count 2.72 M/mm3 (4.6-6.2); White Blood Count 2.2 K/mm3 (4.4-11.0)
[2018-01-13 06:38] LABS: Differential Indicated MANUAL DIFF; POSITIVE COUNT NO; POSITIVE DIFFERENTIAL YES; POSITIVE MORPHOLOGY YES
[2018-01-13 07:10] LABS: Basophil 2 % (0-1); Eosinophil 2 % (0-5); Lymphocyte 14 % (19-41); Metamyelocyte 2 % (0-1); Monocyte 12 % (0-10); Neutrophil-Band 2 % (0-5); Neutrophil-Segmented 66 % (47-70); Total Cells Counted 50 (MANUAL DIFF)
[2018-01-13 07:11] LABS: Absolute Neutrophil Count 1.5 X10^3/uL (2.0-7.7); Anisocytosis 2+; Hypochromasia 2+; Platelet Estimate MOD DEC (ADEQ); Red Cell Morphology N CYTIC NORMAL (NORM C&C)
[2018-01-13 07:50] VITALS: TEMP 37.6
[2018-01-13] MEDS: Rivaroxaban 20 MG Tablet PO (07:51)
[2018-01-13 09:45] VITALS: BP 114/60; PULSE 74; RESP 16; TEMP 37.3; O2SAT 95
[2018-01-13 10:14] LABS: Pathologist Review Reviewed
[2018-01-13 10:28] LABS: Pathologist Review Reviewed
[2018-01-13 10:33] LABS: Pathologist Review Reviewed
[2018-01-13 11:06] LABS: White Blood Count 0.9 K/mm3 (4.4-11.0)
--- NOTE | 2018-01-13 11:07 | CASEMGMT ---
See RN CM assessment Link. -pt states he is independent prior to admission. No DME use. Plans to return home on dc. Family is supportive, daughter is nurse. No needs identified @ this time. Johnathan MUJICAN RN ACM
--- NOTE | 2018-01-13 11:30 | PCM.PN.HOSP ---
Patient Problems: Active and Suspected Problems (Last Updated 01/11/18 @ 16:18 by Rai Moran DO) Sepsis (Acute) Neutropenic fever (Acute) Subjective: Patient seen and examined. He was admitted with a complaint of generalized malaise and a cough productive of scanty white sputum. He was noted to have a fever of over 102 Fahrenheit and an urgent care and was brought to the ED. Chest x-ray done in the ED was concerning for left-sided patchy infiltrate and he was started on meropenem. He had a white cell count of 900 and bands of 11 in the ED. Patient has a history of non-Hodgkin's lymphoma for which he is undergoing therapy and his last chemotherapy session was last . Oncology was consulted and stated that he had recently received Neulasta on account of leukopenia. Next Patient seen and examined this morning. His son was at his bedside. He still complained of a cough productive of scanty white sputum. He denied any fever or chills even though per discussion with nurse, his temperature was still up to 100 Fahrenheit yesterday and was down to around 99.8 Fahrenheit this morning. Denies any chest pain, abdominal pain, diarrhea vomiting. 12 point Review of systems is otherwise negative. Labs and vitals reviewed. Vitals/I&O's: Vital Signs Temp Pulse Resp BP Pulse Ox 99.1 F 74 16 114/60 95 01/13/18 09:45 01/13/18 09:45 01/13/18 09:45 01/13/18 09:45 01/13/18 09:45 Oxygen Delivery Method Room Air Weight: 173 lb 8.061 oz Body Mass Index (BMI) 25.6 Intake and Output for Last 24 Hours 01/11/18 01/12/18 01/13/18 23:59 23:59 23:59 Intake Total 859.9 / 859.9 1472.5 / 1472.5 807 / 807 Balance 859.9 / 859.9 1472.5 / 1472.5 807 / 807 General: Alert, Oriented x3, Cooperative, No apparent distress HEENT: Atraumatic, PERRLA, EOMI, Normocephalic Oral: Moist Mucosa Neck: Supple, No JVD, Negative Carotid Bruits Lungs: Clear to auscultation, Normal air movement, No rhonchi, No wheeze, No rales Cardiovascular: Regular rate, Regular Rhythm, Normal S1, Normal S2, No murmurs Abdomen: Bowel Sounds Present, Soft, Non Tender, Non-Distended, No Hepato-splenomegaly Extremities: No clubbing, No cyanosis, No edema, Capillary Refill Less than 3 Seconds Skin: No rashes, No breakdown Musculoskeletal: No Tenderness to Palpation of Joints or Extremities Lymphatic: No Cervical, Supraclavicular, or Inguinal Adenopathy Neurological: Cranial nerves II-XII grossly intact, Motor Exam 5/5 strength throughout Psych/Mental Status: Normal Affect, Appropriate, Alert and oriented to time, place, person, mood and affect Laboratory Results 01/12/18 06:00: Diff Path Review Reviewed 01/13/18 05:15: WBC 2.2 L, RBC 2.72 L, Hgb 7.8 L, Hct 24.6 L, MCV 90.4, MCH 28.7, MCHC 31.7 L, RDW 13.6, RDW Differential 42.8, Plt Count 62 L, MPV 10.4, Neut % (Auto) Not Reportable, Absolute Neuts (auto) 1.5 L, Absolute Lymphs (auto) 0.30 L, Total Counted 50, Neutrophils % (Manual) 66, Band Neutrophils % 2, Lymphocytes % (Manual) 14 L, Monocytes % (Manual) 12 H, Eosinophils % (Manual) 2, Basophils % (Manual) 2 H, Metamyelocytes % 2 H, Diff Path Review Reviewed, Platelet Estimate MOD DEC, RBC Morphology N CYTIC, Hypochromasia 2+, Anisocytosis 2+ Current Medications Acetaminophen (Tylenol) 650 mg PO Q4H PRN PRN PRN Reason: Temp > 100 F Last Admin: 01/13/18 03:38 Dose: 650 mg Hydrocodone Bitart/Acetaminophen ([place] 5mg-325mg) 1 tablet PO Q6H PRN PRN PRN Reason: PAIN Albuterol Sulfate (Ventolin Aerosols) 2.5 mg INHALATION Q2H PRN PRN PRN Reason: shortness of breath. Guaifenesin (Robitussin) 10 ml PO Q4H PRN PRN PRN Reason: COUGH Last Admin: 01/12/18 15:25 Dose: 10 ml Meropenem 1 gm/ Sodium (Chloride) 120 mls @ 33 mls/hr IV Q8 [facility] Last Admin: 01/13/18 06:00 Dose: 33 mls/hr Magnesium Hydroxide (Milk Of Magnesia) 30 ml PO DAILY PRN PRN PRN Reason: Constipation Last Admin: 01/12/18 22:29 Dose: 30 ml Nutritional Formula (Lactose Free) (Ensure Enlive) 120 ml PO 4X/DAY [facility] Last Admin: 01/13/18 09:52 Dose: 120 ml Ondansetron HCl (Zofran) 8 mg PO Q8H PRN PRN PRN Reason: NAUSEA Ondansetron HCl (Zofran) 4 mg IV Q8H PRN PRN PRN Reason: Nausea Oxycodone HCl (Oxyir) 5 mg PO Q4H PRN PRN PRN Reason: PAIN Rivaroxaban (Xarelto) 20 mg PO DAILYCM [facility] Last Admin: 01/13/18 07:51 Dose: 20 mg Sodium Chloride () 5 - 30 ml IV UD PRN PRN Reason: SALINE FLUSH Zolpidem Tartrate (Ambien (Generic)) 5 mg PO QHS PRN PRN PRN Reason: INSOMNIA Last Admin: 01/13/18 00:34 Dose: 5 mg Medical Necessity - Tobacco Use Smoking Status: Never smoker Tobacco Use: Non-smoker Assessment/Plan All Active Problems (Last Updated 01/11/18 @ 16:18 by Rai Moran DO) Sepsis (Acute) Neutropenic fever (Acute) 1. Sepsis due to possible pneumonia admitted with fever of >100F and pancytopenia on IV meropnem remained febrile overnight. SIRS criteria 2/4 (fever, leucopenia) CXR on admission showed suggestion for left basilar airspace consolidation and atelectasis with suggestion for small pleural effusion due to possible pneumonia blood and urine cultures pending 2. Febrile neutropenia possibly due to pneumonia Zander temperatures overnight documented above. Temperature was 100 Fahrenheit overnight. Down to 98 Fahrenheit this morning. White cell count up to 2.2 today. was 0.4 on admission on IV meropenem. Oncology consulted; awaiting rec;s blood cultures pending. Urine for Legionella and strep antigens negative. Urine culture not ordered. Patient does not have any urine symptoms, UA was negative. 3. Pancytopenia Likely due to chemotherapy from non-Hodgkin's lymphoma. He recently received Neulasta white cell count has trended up to 2.2 Platelet up to 62 and hemoglobin of 7.8 today. Oncology consulted. Will await recommendations. 4. DVT: recently diagnosed with DVT. on xarelto. 5. Non Hodgkins Lymphoma diagnosed. a few months ago. Follows up With Dr. Herzog. Had his third session of chemotherapy about a week ago. Oncology consulted. DVT prophylaxis: On Xarelto This note was generated with [employer] software. It may contain incorrect words, spelling, and punctuation that were not noted in checking the note before signing. Code Visit Inpatient E&M: 53515 Subs Hosp L3
--- NOTE | 2018-01-13 13:27 | PCM.CONS.B ---
Problem List (1) Neutropenic fever Status: Acute (2) Lymphoma malignant, large cell Status: Chronic - Consult Date of Consult: 01/13/[address] Moran regarding patient known to us with diffuse large B-cell lymphoma undergoing chemotherapy present with neutropenia and fever. My final recommendation will be communicated to nursing staff and by electronic medical record. - Reason for Consult History of diffuse large B-cell lymphoma on chemotherapy -Neutropenia with fever History of present illness: Bruno Partida has not been feeling well after his last course of chemotherapy with fever and malaise. He presented with a cough but no shortness of breath. Phlegm is clear. He went to urgent care on Saturday with a fever of 102 and subsequently transferred to emergency room. The emergency room he was neutropenic with ANC of 900. Chest x-ray was concerning for left sided patchy infiltrate versus atelectasis. He was started on meropenem on Saturday. This is a 62-year-old gentleman with history significant for hypertension, mitral stenosis with mitral valve repair in 2013. Initially presented with axillary adenopathy in 2013. He was follow with no change in his adenopathy until October of this year when patient presented with swelling of the left leg and ankle. Patient had an ultrasound Doppler study and subsequent CT scan of abdomen pelvis show multiple abdominal and retroperitoneal lymph nodes largest measure 7.6 x 3.5 cm and left aortic region. Patient also had partial occlusion of thrombus in the left external iliac vein secondary to lymphadenopathy. Subsequent biopsy of apathy confirmed diffuse large B-cell lymphoma. She was started on Xarelto on 10/28/2017 treatment of DVT. Patient had 3 cycles of chemotherapy with rituximab-CHOP & Neulasta. He was treated for a sinus infection 3 weeks ago. His last course of chemotherapy was on 01/01/2018. Likely has lymphoma has responded to treatment. DVT has resolved or stable on Xeralto Past Medical History Medical History: Medical History (Last Updated 01/11/18 @ 16:18 by Rai Moran DO) Lymphoma C85.90 Pancytopenia D61.818 VTE (venous thromboembolism) I82.90 HTN (hypertension) I10 Allergies No Known Allergies Allergy (Verified 01/11/18 13:25) Home Medications: Ambulatory Orders Medication Instructions Recorded Ascorbic Acid [Vitamin C] 1,000 mg PO DAILY@0800 11/14/13 Calcium Carb/Vitamin D 1 tab PO BIDCM 04/02/13 [Cal[place]-600 With Vit D Tab] Magnesium 200 mg PO DAILY 04/02/13 [place]-3 Fatty Acids/Fish Oil 1 each PO DAILY 04/02/13 [[place] 3 1,000 mg Softgel] Allopurinol [Zyloprim] 300 mg PO DAILY 11/29/17 Lisinopril [Zestril] 10 mg PO DAILY 11/29/17 Ondansetron [Zofran] 8 mg PO Q8H PRN PRN 11/29/17 Oxycodone [Oxyir] 5 mg PO Q4H PRN PRN 11/29/17 Prednisone 50 mg PO BID 11/29/17 Rivaroxaban [Xarelto] 20 mg PO DAILY 11/29/17 Vitamin D3/Vitamin K2 (Mk4) [K2 1 each PO DAILY 11/29/17 Plus D3 Tablet] Hydrocodone Bitart/Apap 5-325 1 tab PO Q6H PRN PRN 2 Days #5 tab 12/05/17 [[place] 5MG-325MG] Smoking Status: Never smoker Tobacco Use: Non-smoker Alcohol: Rare Drugs: None - *Family History Paternal History Items: Cancer - lung Review of Systems Constitutional: Reports: Chills, Fever, Malaise, Weakness. Denies: Anorexia Eyes: Denies: Blurred vision, Double vision HEENT: Reports: Ear Pain - Occasional left ear pain when he chews. Patient was recently treated for sinus infection and had more persistent ear pain at that time on the left. Patient states that is now more intermittent., Post Nasal Drip, Sinus Congestion. Denies: Difficulty Hearing Cardiovascular: Denies: Chest Pain, Edema Respiratory: Reports: Cough, Sputum production. Denies: Shortness of Breath Gastrointestinal: Denies: Abdominal Pain, Nausea, Vomiting Genitourinary: Denies: Dysuria Musculoskeletal: Denies: Joint Pain, Joint Tenderness Skin: Denies: Rash, Wounds Neurological: Denies: Numbness, Tingling, Focal weakness Psychiatric: Denies: Anxiety, Depression Endocrine: Reports: Heat/ Cold Intolerance - Always cold Hematologic/ Lymphatic: Reports: Hx of blood clot. Denies: Easy Bruising, Easy Bleeding Comment: All review of systems are negative except as mentioned in the history of present illness and the other review of systems. Neutropenic fever (Acute) Anemia and thrombocytopenia secondary to chemotherapy (Acute) - Physical Exam General: Alert, No apparent distress HEENT: Atraumatic, Normocephalic, TM's Clear, - - No scleral icterus. Tympanic membranes are intact without any effusion or erythema. Patient did have some redness on his the soft palate as well as posterior pharynx. On visualizing his septum patient had defects in the anterior portion of septum. Neck: No Nodes, Thyroid Normal Size and Texture Lungs: Clear to auscultation, No rhonchi, No wheeze Cardiovascular: Regular rate, Regular Rhythm, Normal S1, Normal S2, No murmurs Abdomen: Bowel Sounds Present, Soft, Non Tender, Non-Distended, No Hepato-splenomegaly Extremities: No edema, No Calf Tenderness Skin: No rashes, No breakdown Musculoskeletal: No Tenderness to Palpation of Joints or Extremities, No Muscle Wasting Lymphatic: - - No cervical lymphadenopathy Neurological: Neuro grossly intact, Sensory exam intact to light touch and pain, - - No clonus. Psych/Mental Status: Normal Affect, Appropriate Vital Signs Vital Signs - 24 hr Temp Pulse Resp BP Pulse Ox 01/13/18 09:45 99.1 F 74 16 114/60 95 01/13/18 07:50 99.7 F H 01/13/18 05:30 100.4 F H 01/13/18 03:49 102.3 F H 72 18 146/98 H 100 01/12/18 22:24 100.1 F H 67 18 118/77 96 01/12/18 20:38 100.7 F H 01/12/18 17:57 99.0 F 01/12/18 16:55 100.8 F H 01/12/18 15:30 100.2 F H 76 20 H 114/68 96 Microbiology Past 72 Hours 01/11/18 13:30 Mucosa - Throat Group A Streptococcus Rapid Screen - Final 01/11/18 14:40 Urine, Clean Catch Streptococcus pneumoniae Antigen (M - Final 01/11/18 14:40 Urine, Clean Catch Legionella Antigen - Final Laboratory Results 01/11/18 14:00: WBC 0.9 L*, Diff Path Review Reviewed 01/12/18 06:00: Diff Path Review Reviewed 01/13/18 05:15: WBC 2.2 L, RBC 2.72 L, Hgb 7.8 L, Hct 24.6 L, MCV 90.4, MCH 28.7, MCHC 31.7 L, RDW 13.6, RDW Differential 42.8, Plt Count 62 L, MPV 10.4, Neut % (Auto) Not Reportable, Absolute Neuts (auto) 1.5 L, Absolute Lymphs (auto) 0.30 L, Total Counted 50, Neutrophils % (Manual) 66, Band Neutrophils % 2, Lymphocytes % (Manual) 14 L, Monocytes % (Manual) 12 H, Eosinophils % (Manual) 2, Basophils % (Manual) 2 H, Metamyelocytes % 2 H, Diff Path Review Reviewed, Platelet Estimate MOD DEC, RBC Morphology N CYTIC, Hypochromasia 2+, Anisocytosis 2+ EKG reviewed and showed normal sinus rhythm with acute changes. Chest x-ray reviewed and shows some patchy infiltrates in the left but not significantly changed from previous chest x-rays. Assessment/Plan All Active Problems 1) febrile neutropenia with no obvious source of infection -Repeat chest x-ray today -If all blood cultures are negativ,e consider stopping meropenem and discharge home tomorrow if stable. 2) anemia and thrombocytopenia secondary to chemotherapy-patient is asymptomatic, and no bleeding -Repeat CBC tomorrow, no transfusion at this time. 3) history of DVT -Continue Xarelto 20mg daily 4) diffuse large B-cell lymphoma; s/p R CHOP -Follow-up with Dr. Herzog next week -Repeat CT scan after next cycle of chemotherapy cc: Dr. Zac Herzog; Dr. Rai Moran; Dr. Kylah Hanna
[2018-01-13 15:45] VITALS: BP 133/69; PULSE 73; RESP 16; TEMP 37.8; O2SAT 95
[2018-01-13 21:45] VITALS: BP 134/71; PULSE 70; RESP 19; TEMP 37.8; O2SAT 93
--- NOTE | 2018-01-14 02:22 | NURSING ---
Verbal report given to Dax Jones RN. He will resume care of pt at this time.
[2018-01-14 03:45] VITALS: BP 124/68; PULSE 66; RESP 18; TEMP 36.9; O2SAT 95
[2018-01-14 04:46] LABS: Absolute Lymphocyte Count 0.43 X10^3/ul (0.83-4.51); Basophil# 0.01 X10^3/uL; Basophil% 0.4 % (0-1); Differential Indicated SCAN CRITERIA MET; Eosinophil# 0.01 X10^3/uL; Eosinophils% 0.4 % (0-5); Hematocrit 26.5 % (40-54); Hemoglobin 8.5 g/dl (13.0-16.5); Lymphocyte # 0.43 X10^3/ul (4.0); Lymphocyte % 15.6 % (19-41); Mean Corp Hgb Conc 32.1 g/gl (32-36); Mean Corpuscular Hgb 28.5 pg (27.0-32.0); Mean Corpuscular Volume 88.9 fL (80-94); Monocyte# 0.23 X10^3/uL; Monocyte% 8.3 % (0-10); Neutrophil # 2.04 X10^3/uL (2.7-7.7); Neutrophil % 73.9 % (47-70); POSITIVE COUNT NO; POSITIVE DIFFERENTIAL YES; POSITIVE MORPHOLOGY YES; Platelet Count 76 K/mm3 (150-450); RBC Distribution Width CV 14.6 % (11.6-14.6); RBC Distribution Width SD 46.6 fl (35.1-43.9); Red Blood Count 2.98 M/mm3 (4.6-6.2); White Blood Count 2.8 K/mm3 (4.4-11.0)
[2018-01-14] MEDS: 0.9% NaCl Peripheral Flush Adult/Peds IV ×2 (05:29→12:09)
--- NOTE | 2018-01-14 07:42 | PCM.PN.BLA ---
Progress Note Hematology oncology consult progress note: Patient has no complaints today. Blood cultures and urine culture were negative. Repeat chest x-ray was normal. Complete blood count recovering with mild thrombocytopenia and anemia. Patient remained afebrile after antibiotic-meropenem discontinued yesterday. Assessment and Plan: 1) neutropenic fever-resolved; blood culture negative -Discharge home today and follow-up with Dr. Herzog next week. 2) history of DVT; stable on Xarelto -Continue Xarelto 20mg once daily 3) history of diffuse large B-cell lymphoma; status post cycle 3 of R CHOP -Clinically responding -May delay next cycle of chemotherapy because of neutropenia and thrombocytopenia -See Dr. Herzog next week.
[2018-01-14 08:55] VITALS: BP 118/75; PULSE 77; RESP 18; TEMP 36.9; O2SAT 97
--- NOTE | 2018-01-14 10:15 | PCM.DC ---
- Discharge Diagnoses Current Active Problems: Current Active and Chronic Problems (Last Updated 01/11/18 @ 16:18 by Rai Moran DO) Sepsis (Acute) Neutropenic fever (Acute) Lymphoma malignant, large cell (Chronic) You will use the following diet at home:: Cardiac Your food should be the consistency of: Regular Your liquids should be the consistency of: Regular/Thin Discharge Activity: Return to Normal Activity Weight Bearing Status: Weight bearing as tolerated Call your doctor if you observe: Fever of 101 or Higher Allergies/Adverse Reactions: Allergies No Known Allergies Allergy (Verified 01/11/18 13:25) Medications to take at Discharge Magnesium 200 mg PO DAILY 04/02/13 [place]-3 Fatty Acids/Fish Oil [[place] 3 1,000 mg Softgel] 1 each PO DAILY 04/02/13 Rivaroxaban [Xarelto] 20 mg PO DAILY 11/29/17 Vitamin D3/Vitamin K2 (Mk4) [K2 Plus D3 Tablet] 1 each PO DAILY 11/29/17 Primary Care Physician: Kylah Hanna DO [Primary Care Provider] - Please follow up with your Primary Care Physician in: 1-2 weeks Test Results: Test results from this visit will be discussed in further detail at your follow-up appointment, if applicable. Please Follow Up With: Kylah Hanna DO Please Follow Up With: Zac Herzog DO When: one week Proposed Discharge Date: 01/14/18
--- NOTE | 2018-01-14 10:17 | PCM.DC.SUM ---
Discharge Date and Diagnosis - Problem List Patient Problems: Active and Suspected Problems (Last Updated 01/11/18 @ 16:18 by Rai Moran DO) Sepsis (Acute) Neutropenic fever (Acute) Date of Admission: 01/11/18 Date of Discharge: 01/14/18 - Primary Discharge Diagnosis Active and Suspected Problems (Last Updated 01/11/18 @ 16:18 by Rai Moran DO) Sepsis (Acute) Neutropenic fever (Acute) - Secondary Discharge Diagnosis Chronic Problems (Last Updated 01/11/18 @ 16:18 by Rai Moran DO) Lymphoma malignant, large cell (Chronic) Hospital Course and Treatment Imaging Results: Laboratory Results - last 24 hr 01/11/18 01/12/18 01/13/18 14:00 06:00 05:15 WBC 0.9 L* RBC Hgb Hct MCV MCH MCHC RDW RDW Differential Plt Count MPV Immature Gran % (Auto) Neut % (Auto) Lymph % (Auto) [place] % (Auto) Eos % (Auto) Baso % (Auto) Absolute Neuts (auto) Absolute Lymphs (auto) Total Counted Diff Path Review Reviewed Reviewed 01/14/18 04:30 WBC 2.8 L RBC 2.98 L Hgb 8.5 L Hct 26.5 L MCV 88.9 MCH 28.5 MCHC 32.1 RDW 14.6 RDW Differential 46.6 H Plt Count 76 L MPV 11.0 Immature Gran % (Auto) 1.400 H Neut % (Auto) 73.9 H Lymph % (Auto) 15.6 L [place] % (Auto) 8.3 Eos % (Auto) 0.4 Baso % (Auto) 0.4 Absolute Neuts (auto) 2.0 Absolute Lymphs (auto) 0.43 L Total Counted Not Reportable Diff Path Review Diagnostic Data Chest X-Ray 01/13/18 14:22 IMPRESSION: Chronic interstitial changes, no superimposed acute pulmonary process Electronically Signed: Caleb Mcadams MD at 14:40 EDT , Service support , oncology Operations: None Procedures: None Summary of Care Provided: The patient is a 62 year old M with a history of non-Hodgkin's lymphoma and DVT undergoing chemotherapy and radiation therapy. He was admitted on 01/11/2018 with a complaint of fever and generalized malaise with an associated cough which was productive only of scanty whitish sputum. He initially went to an urgent care was noted to have a temperature over 102 Fahrenheit and so he was brought to the ED. In the ED was initially noted to have a white cell count of 900 and bands of 11. He had a chest x-ray which was concerning for left-sided patchy infiltrates. He was therefore admitted and managed for neutropenic fever and sepsis due to pneumonia. He was started on IV meropenem. Urinalysis and urine culture were negative and strep and Legionella antigens were also negative in the urine. Patient improved clinically. Continue to have mild spikes of his temperature to 100 Fahrenheit the patient was totally stable and had no complaints. He was reviewed by oncology. Patient remained stable and neutropenic fever resolved. Was discharged home on 01/14/2018, to follow-up with his primary care doctor and oncology. He had recently received Neulasta per oncology, and so did not receive any during this admission. Patient seen and examined prior to discharge. He had no complaints and felt well. He denied any fever or chills, any cough or chest pain, shortness of breath any abdominal pain, any diarrhea vomiting. Review of systems is otherwise negative. Labs and vitals reviewed. Home medications reviewed and reconciled. On examination. Vital Signs Height 5 ft 9 in Weight: 173 lb 8.061 oz Weight in Pounds 173.5 lbs Pulse Ox 97 Temperature 98.5 F Pulse Rate 77 Respiratory Rate 18 Blood Pressure 118/75 Blood Pressure Position Semi-Fowlers []General: Alert, Oriented x3, Cooperative, No apparent distress HEENT: Atraumatic, PERRLA, EOMI, Normocephalic Oral: Moist Mucosa Neck: Supple, No JVD, Negative Carotid Bruits Lungs: Clear to auscultation, Normal air movement, No rhonchi, No wheeze, No rales Cardiovascular: Regular rate, Regular Rhythm, Normal S1, Normal S2, No murmurs Abdomen: Bowel Sounds Present, Soft, Non Tender, Non-Distended, No Hepato-splenomegaly Extremities: No clubbing, No cyanosis, No edema, Capillary Refill Less than 3 Seconds Skin: No rashes, No breakdown Musculoskeletal: No Tenderness to Palpation of Joints or Extremities Lymphatic: No Cervical, Supraclavicular, or Inguinal Adenopathy Neurological: Cranial nerves II-XII grossly intact, Motor Exam 5/5 strength throughout Psych/Mental Status: Normal Affect, Appropriate, Alert and oriented to time, place, person, mood and affect Plan as documented above. He is to continue taking xarelto. Discharge Diet: 2000 mg Sodium Diet Discharge Activity: Return to Normal Activity Weight Bearing Status: Weight bearing as tolerated Call your doctor if you observe: Fever of 101 or Higher Home Medications: Medications to take at Discharge Magnesium 200 mg PO DAILY 04/02/13 [place]-3 Fatty Acids/Fish Oil [[place] 3 1,000 mg Softgel] 1 each PO DAILY 04/02/13 Rivaroxaban [Xarelto] 20 mg PO DAILY 11/29/17 Vitamin D3/Vitamin K2 (Mk4) [K2 Plus D3 Tablet] 1 each PO DAILY 11/29/17 Primary Care Physician: Kylah Hanna DO [Primary Care Provider] - Please follow up with your Primary Care Physician in: 1-2 weeks Please Follow Up With: Kylah Hanna DO Please Follow Up With: Zac Herzog DO When: one week Patient Instructions: Neutropenia Disposition: Home Minutes spent on discharge:: 40 Patient Condition:: Stable Medical Necessity - Tobacco Use Smoking Status: Never smoker Tobacco Use: Non-smoker Meaningful Use Info Meaningful Use Diagnoses (Choose all that apply): None applicable Code Visit Inpatient E&M: 72031 Disch Hosp
[2018-01-14] MEDS: Rivaroxaban 20 MG Tablet PO (10:52)
--- NOTE | 2018-01-17 12:30 | CASEMGMT ---
RN CM DC Phone Call. DC DATE: 01/14/18 DC Disposition: Home LACE STRATA 3 Intro role of CM to patient via home phone. Pt states he is feeling well. no questions re: prescriptions, states he has f/u appointments made and understands his medications. No questions at this time. Johnathan MUJICAN RN ACM
== END 2018-01-14 12:44 | disposition home or self-care (01) | DRG 871 ==
LOC: ED 13:58 → PCU 16:06
PROVIDERS: Emergency Provider Emergency Medicine; Family Provider Internal Medicine; PCP Internal Medicine; Visit Provider Student in an Organized Health Care Education/Training Program
DX: A41.9 Sepsis, unspecified organism (principal); J18.9 Pneumonia, unspecified organism; C83.30 Diffuse large B-cell lymphoma, unspecified site; Z92.3 Personal history of irradiation; T45.1X5A Adverse effect of antineoplastic and immunosuppressive drugs, initial encounter; I10 Essential (primary) hypertension; Z79.01 Long term (current) use of anticoagulants; Z86.718 Personal history of other venous thrombosis and embolism; R50.81 Fever presenting with conditions classified elsewhere; D70.9 Neutropenia, unspecified; D64.81 Anemia due to antineoplastic chemotherapy; D69.59 Other secondary thrombocytopenia
CPT/HCPCS: 36415; 36591; 71046; 80048; 80076; 81001; 85025; 87040; 87449; 87880; 93005; 97802; 99282; J2185; J7030; J7040; A4216

== ENCOUNTER 2018-01-29 23:11 | Inpatient (IN) | payer BC, SELFPAY ==
[2018-01-29 23:12] VITALS: BP 148/85; PULSE 94; RESP 27; TEMP 38.5; O2SAT 92; BMI 28.4
[2018-01-29 23:14] VITALS: BP 153/84; PULSE 94; RESP 23; O2SAT 92
--- NOTE | 2018-01-29 23:23 | RAD_ITS ---
STUDY: X-RAY CHEST REASON FOR EXAM: Male, 62 years old. Chills TECHNIQUE: Frontal view COMPARISON: 01/13/2018 FINDINGS: There is a LEFT-sided Port-A-Cath. The tip is in the superior vena cava. There is suboptimal inspiration. There are bibasilar infiltrates. There is NO effusion or pneumothorax. Normal size heart. Normal mediastinum and karyna. Normal visualized pulmonary arteries. Normal visualized aortic arch and descending thoracic aorta. Normal visualized thoracic spine. There is RIGHT shoulder replacement hardware. There is no demonstrated abnormality of the visualized soft tissue structures of the upper abdomen. RAD/Chest 1 View (Portable) IMPRESSION: There is a LEFT-sided Port-A-Cath. The tip is in the superior vena cava. There is suboptimal inspiration. There are bibasilar infiltrates. There is NO effusion or pneumothorax. Normal size heart. Electronically Signed: Nicho Pina MD at 0:33 EDT , Service support ,
--- NOTE | 2018-01-29 23:31 | ED.VISSUMM ---
- ER Visit Summary Date of Service: 01/29/18 Chief Complaint: Fever History of Present Illness: The patient is a 62 M with history of large B-cell lymphoma who follows with Dr. Herzog presents to the emergency department with fever. Patient's last chemotherapy was 6 days ago. He states that tonight, he began to develop a fever. He states it was as high as 102 at home. He admits to chills and myalgias. He has had a scant cough. The patient was recently hospitalized for neutropenic fever. 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 He denies any chest pain. He denies shortness of breath. He denies abdominal pain or dysuria. He denies any rash or skin changes. Physical Examination: Vital signs reviewed General: Well-nourished, well-developed Head: Normocephalic, atraumatic Eyes: Pupils equal and reactive, extraocular muscles intact Neck, supple, no lymphadenopathy Heart: Regular rate and rhythm Respiratory: No distress, scant wheeze throughout Abdomen: Soft, nontender, nondistended, no peritoneal signs Back: Nontender Extremities: Nontender, no edema, no cords Skin: Normal color no rash Neuro: Alert and oriented, no focal or lateralizing deficits Test Results: [] Emergency Department Course and Treatment: Patient presents with fever and history of immunosuppression. Neutropenic precautions were started. Blood cultures were obtained. The patient was initially given meropenem. Screening labs do demonstrate rather significant neutropenia with an ANC of 0. Patient's leukocytes are 0.1. He does have anemia and thrombocytopenia which does appear to be chronic. Patient's x-ray does demonstrate bilateral lower lobe infiltrates. He is not hypoxic. He does have some mild tachypnea. His lactic acid is negative. I did add Levaquin and vancomycin to his antibiotic regimen given his recent hospitalization, bilateral infiltrates, and neutropenia. This patient is going to require admission. Patient was discussed with the hospitalist will be admitted. I also discussed the patient with Dr. Mendoza who is in agreement with plan of care. Treatment Plan: [] Disposition: Admission Impression: 1. Neutropenic fever 2. Bilateral pneumonia This note was generated with [employer] software. It may contain incorrect words, spelling, and punctuation that were not noted in review of the chart prior to signing ED Disposition - Plan for ED Patient: Chief Complaint: Fever Referrals: Kylah Hanna DO [Primary Care Provider] -
[2018-01-29 23:38] LABS: Bacteria 0 SEEN /hpf (None Seen); Mucous, Urine 0 SEEN /hpf (<or=2+); Red Blood Cells-Urine 0 SEEN /hpf (0-5); Squamous Epithelial Cells - UA 0 SEEN /hpf (0-5); White Blood Cells 0 SEEN /hpf (0-5)
[2018-01-29] MEDS: Acetaminophen 500 MG Tablet 1000 MG PO (23:40)
[2018-01-29] MEDS: 0.9% Normal Saline 1,000 ML 1000 ML IV (23:40)
[2018-01-29 23:46] LABS: Color, Urine Yellow (Yellow); Glucose, Dipstick Normal (Normal); Ketone-Dipstick Negative (Negative); Leukocyte Esterase-Dipstick Negative /ul (Negative); Nitrite-Dipstick Negative (Negative); Occult Blood-Urine Negative /ul (Negative); Protein-Dipstick Negative (Negative); Specific Gravity, Urine 1.015 (1.002-1.030); Urine Bilirubin Dipstick Negative (Negative); Urine Clarity Clear (Clear); Urine Urobilinogen Normal (Normal)
[2018-01-29 23:54] LABS: Absolute Lymphocyte Count 0.09 X10^3/ul (0.83-4.51); Eosinophil# 0.01 X10^3/uL; Eosinophils% 7.1 % (0-5); Hematocrit 25.7 % (40-54); Hemoglobin 8.3 g/dl (13.0-16.5); Lymphocyte # 0.09 X10^3/ul (4.0); Lymphocyte % 64.3 % (19-41); Mean Corp Hgb Conc 32.3 g/gl (32-36); Mean Corpuscular Hgb 29.4 pg (27.0-32.0); Mean Corpuscular Volume 91.1 fL (80-94); Mean Platelet Vol. 9.5 fl (6.2-12.0); Monocyte# 0.03 X10^3/uL; Monocyte% 21.4 % (0-10); Neutrophil # 0.01 X10^3/uL (2.7-7.7); Neutrophil % 7.2 % (47-70); Platelet Count 96 K/mm3 (150-450); RBC Distribution Width CV 16.2 % (11.6-14.6); RBC Distribution Width SD 51.8 fl (35.1-43.9); Red Blood Count 2.82 M/mm3 (4.6-6.2)
[2018-01-29 23:55] LABS: Differential Indicated SCAN CRITERIA MET; POSITIVE COUNT YES; POSITIVE DIFFERENTIAL YES; POSITIVE MORPHOLOGY YES
[2018-01-29 23:56] LABS: White Blood Count 0.1 K/mm3 (4.4-11.0)
[2018-01-30] VITALS (9 sets, daily range): BP systolic 102–157; BP diastolic 57–77; PULSE 66–91; RESP 16–30; TEMP 36.9–39.1; O2SAT 93–100; BMI 26.6
[2018-01-30 00:09] LABS: AST(SGOT) 32 U/L (15-37); Alanine Aminotransfer ALT/SGPT 58 U/L (16-61); Albumin, Serum 2.6 g/dL (3.2-5.0); Alkaline Phosphatase 85 U/L (45-117); Anion Gap 8 (5-15); BUN 20 mg/dL (7-18); BUN/Creat Ratio 25.2 RATIO (10-20); Calcium,Total 8.4 mg/dL (8.5-10.1); Chloride 100 mmol/L (98-107); EST Glomerular Filtration Rate 105 mL/min (>60); Est Glom Filt Rate - Afr Amer 127 mL/min (>60); Estimated Creatinine Clearance 93.81 ml/min; Globulin 2.7 g/dL (2.2-4.2); Glucose 125 mg/dL (74-106); International Normalized Ratio 1.2; Potassium 3.7 mmol/L (3.5-5.1); Protein, Total 5.3 g/dL (6.4-8.2); Prothrombin Time (Protime)PT. 15.3 SECONDS (11.7-14.9); Sodium Level 137 mmol/L (136-145)
[2018-01-30 00:11] LABS: Lactic Acid 1.8 mmol/L (0.4-2.0)
[2018-01-30] MEDS: levoFLOXacin IV 750 MG/150 ML BAG 150 MG IV (00:11)
--- NOTE | 2018-01-30 00:44 | HP.PCM_ITS ---
Problem List (1) Neutropenic fever Status: Acute (2) Lymphoma malignant, large cell Status: Chronic (3) Multifocal pneumonia Status: Acute (4) Sepsis Status: Acute Qualifiers: Sepsis type: sepsis due to unspecified organism Qualified Code(s): A41.9 - Sepsis, unspecified organism History of Present Illness Date of Admission: 01/30/18 Chief Complaint: fever and chills x 1 day The patient is a 62 year old M with a significant history of B-cell lymphoma, who presented with a one day history of fever and chills. Family reported that patient's home temperature was 100.5 ED doctor reported that he (ED) talked to Dr. Reed,oncologist. Per ED doctor Dr. Reed may consider Granix in am. Per ED doctor, Dr. Reed suggested ID consult. Patient was admitted here on 01/11/2018; and discharged on 01/14/2018 for neutropenic fever. Patient follows up with Dr. Herzog for B-cell lymphoma. Patient's last chemotherapy was on 01/23/2018. Past Medical History Past Medical History (Chronic Problems): Chronic Problems (Last Reviewed 01/30/18 @ 03:42 by Valeriano Schultz MD) Lymphoma malignant, large cell (Chronic) Medical History: Medical History (Last Reviewed 01/30/18 @ 03:42 by Valeriano Schultz MD) Lymphoma C85.90 Pancytopenia D61.818 VTE (venous thromboembolism) I82.90 HTN (hypertension) I10 Allergies No Known Allergies Allergy (Verified 01/29/18 23:14) Home Medications: Ambulatory Orders Medication Instructions Recorded Magnesium 200 mg PO DAILY 04/02/13 [place]-3 Fatty Acids/Fish Oil 1 each PO DAILY 04/02/13 [[place] 3 1,000 mg Softgel] Rivaroxaban [Xarelto] 20 mg PO DAILY 11/29/17 Vitamin D3/Vitamin K2 (Mk4) [K2 1 each PO DAILY 11/29/17 Plus D3 Tablet] Surgical History: herniorrhaphy, - - Heart valve repair; surgery on right ear Lives: With Family Smoking Status: Never smoker Alcohol: None - *Family History Paternal History Items: Cancer - lung, - - stroke Maternal History Items: Heart Disease Review of Systems Constitutional: Reports: Chills, Fever Eyes: Denies: Blurred vision, Pain HEENT: Denies: Head Aches, Sinus Congestion, Sinus Drainage Cardiovascular: Denies: Chest Pain, Palpitations Respiratory: Reports: Shortness of Breath Gastrointestinal: Denies: Abdominal Pain, Nausea, Vomiting Genitourinary: Denies: Dysuria Musculoskeletal: Denies: Joint Pain, Joint Tenderness Skin: Denies: Rash, Wounds Neurological: Denies: Numbness, Tingling, Focal weakness Psychiatric: Denies: Anxiety, Depression, Homicidal Ideations, Suicidal Ideations Hematologic/ Lymphatic: Denies: Easy Bruising, Easy Bleeding VTE Information - Inpt Only VTE Present on Admission: Yes - History of DVT on Xarelto VTE Mechan Device Prophylaxis: None VTE Pharm Prophylaxis ordered?: No Reason prophylaxis not ordered:: Treatment Not Indicated - On home Xarelto, continued. Patient Problems: Active and Suspected Problems (Last Reviewed 01/30/18 @ 03:42 by Valeriano Schultz MD) Multifocal pneumonia (Acute) - Physical Exam General: Alert, Oriented x3, Cooperative HEENT: Atraumatic, PERRLA, EOMI, Normocephalic Neck: Supple, No JVD, Negative Carotid Bruits Lungs: Rales - bibasilar, R > L, Tachypneic Cardiovascular: Murmur, Tachycardic Abdomen: Bowel Sounds Present Extremities: Capillary Refill Less than 3 Seconds, Edema - R leg (family reports is due to previous DVT in groin) Skin: No rashes, No breakdown Musculoskeletal: No Tenderness to Palpation of Joints or Extremities Neurological: Cranial nerves II-XII grossly intact Psych/Mental Status: Normal Affect, Appropriate Vital Signs Temp Pulse Resp BP Pulse Ox 101.3 F H 91 30 H 157/74 H 97 01/29/18 23:12 01/30/18 00:11 01/30/18 00:11 01/30/18 00:11 01/30/18 00:11 Oxygen Flow Rate (L/min) 2 Oxygen Delivery Method Nasal Cannula Weight: 84.8 kg Body Mass Index (BMI) 28.4 Laboratory Tests Past 24 Hrs 01/29/18 01/29/18 01/29/18 23:30 23:34 23:34 WBC 0.1 L* RBC 2.82 L Hgb 8.3 L Hct 25.7 L MCV 91.1 MCH 29.4 MCHC 32.3 RDW 16.2 H RDW Differential 51.8 H Plt Count 96 L MPV 9.5 Immature Gran % (Auto) 0.000 Neut % (Auto) 7.2 L Lymph % (Auto) 64.3 H [place] % (Auto) 21.4 H Eos % (Auto) 7.1 H Baso % (Auto) 0.0 Absolute Neuts (auto) 0.0 L Absolute Lymphs (auto) 0.09 L Total Counted Not Reportable Diff Path Review September PT 15.3 H INR 1.2 Sodium Potassium Chloride Carbon Dioxide Anion Gap BUN Creatinine Estim Creat Clear Calc Est GFR (MDRD) Af Amer Est GFR (MDRD) Non-Af BUN/Creatinine Ratio Glucose Lactic Acid Calcium Total Bilirubin AST ALT Alkaline Phosphatase Total Protein Albumin Globulin Albumin/Globulin Ratio Urine Color Yellow Urine Clarity Clear Urine pH 8.0 Ur Specific [place] 1.015 Urine Protein Negative Urine Glucose (UA) Normal Urine Ketones Negative Urine Occult Blood Negative Urine Nitrite Negative Urine Bilirubin Negative Urine Urobilinogen Normal Ur Leukocyte Esterase Negative Urine RBC 0 SEEN Urine WBC 0 SEEN Ur Squamous Epith Cells 0 SEEN Urine Bacteria 0 SEEN Urine Mucus 0 SEEN 01/29/18 01/29/18 23:34 23:34 WBC RBC Hgb Hct MCV MCH MCHC RDW RDW Differential Plt Count MPV Immature Gran % (Auto) Neut % (Auto) Lymph % (Auto) [place] % (Auto) Eos % (Auto) Baso % (Auto) Absolute Neuts (auto) Absolute Lymphs (auto) Total Counted Diff Path Review PT INR Sodium 137 Potassium 3.7 Chloride 100 Carbon Dioxide 29.0 Anion Gap 8 BUN 20 H Creatinine 0.80 Estim Creat Clear Calc 93.81 Est GFR (MDRD) Af Amer 127 Est GFR (MDRD) Non-Af 105 BUN/Creatinine Ratio 25.2 H Glucose 125 H Lactic Acid 1.8 Calcium 8.4 L Total Bilirubin 0.60 AST 32 ALT 58 Alkaline Phosphatase 85 Total Protein 5.3 L Albumin 2.6 L Globulin 2.7 Albumin/Globulin Ratio 1.0 Urine Color Urine Clarity Urine pH Ur Specific [place] Urine Protein Urine Glucose (UA) Urine Ketones Urine Occult Blood Urine Nitrite Urine Bilirubin Urine Urobilinogen Ur Leukocyte Esterase Urine RBC Urine WBC Ur Squamous Epith Cells Urine Bacteria Urine Mucus Assessment/Plan All Active Problems (Last Reviewed 01/30/18 @ 03:42 by Valeriano Schultz MD) Sepsis (Acute) Neutropenic fever (Acute) Multifocal pneumonia (Acute) The patient is a 62 year old M with a significant history of B-cell lymphoma, with re-occurrent neutropenic fever; and also with radiographic evidence of multifocal pneumonia; and SIR consistent with sepsis due to likely pneumonia secondary to multi drug resistant organism . Sepsis secondary to Multifocal pneumonia Tmax so far 102.3 Patient has Tachycardia and Tachypnea. Lactic acid is normal Reviewed labs showed WBC 0.1L; ANC was 0 Independent review of CXR shows bilateral infiltrate R>L Received Merrem; Levaquin and Vancomycin at the ED Will treat for multi drug resistant pneumonia because of hospitalization 2 weeks ago Vancomycin continued Zosyn ordered Received IVF bolus at ED. Gentle IVF hydration with lactator's ringers initiated Sputum culture and MRSA screen ordered. Blood cultures from port; and peripheral are pending ID consulted to optimize management Neutropenic fever Fever 102.3 ANC 0 urinalysis unremarkable Area around port is unremarkable Blood culture are pending Antibiotics as above Trend CBC and BMP B-cell Lymphoma Oncologist, Dr. Reed consulted History of DVT xarelto continued DVT prophylaxis Not indicated Patient on Xarelto as above Code Visit Inpatient E&M: 20724 Init Hosp L3
[2018-01-30] MEDS: Acetaminophen 325 MG Tablet 650 MG PO (02:59)
--- NOTE | 2018-01-30 03:48 | PCM.RX.CS ---
Consult Pharmacy has been consulted to manage selected antiobiotic: Vancomycin Type of Consult: New start Suspected Infection: Pneumonia Prior Doses of Antibiotics Received/Current Regimen: Medications Piperacillin Sod/Tazobactam Sod (Zosyn) 3.375 gm in 50 mls @ 12.5 mls/hr IV Q8 VICTORIA Vancomycin HCl 1,750 mg/ (Sodium Chloride) 535 mls @ 250 mls/hr IV Q12H VICTORIA Labs: Sodium 137 mmol/L (136-145) 01/29/18 23:34 Potassium 3.7 mmol/L (3.5-5.1) 01/29/18 23:34 Chloride 100 mmol/L (98-107) 01/29/18 23:34 Carbon Dioxide 29.0 mmol/L (21.0-32.0) 01/29/18 23:34 Anion Gap 8 (5-15) 01/29/18 23:34 BUN 20 mg/dL (7-18) H 01/29/18 23:34 Creatinine 0.80 mg/dL (0.70-1.30) 01/29/18 23:34 Est GFR (MDRD) Af Amer 127 mL/min (>60) 01/29/18 23:34 Est GFR (MDRD) Non-Af 105 mL/min (>60) 01/29/18 23:34 BUN/Creatinine Ratio 25.2 RATIO (10-20) H 01/29/18 23:34 Glucose 125 mg/dL (74-106) H 01/29/18 23:34 Weight used for dosin.4 kg Estimated Creatinine Clearance: 93.81 Goal Trough: 15-20 mcg/mL Pharmacy Plan for Drug Dosing: Pharmacy Service will continue to monitor and adjust dosing as required. Medications Vancomycin HCl 1,750 mg/ (Sodium Chloride) 535 mls @ 250 mls/hr IV Q12H [facility] Follow-Up Labs: Trough Vancomycin Labs to be done on [date and time ordered]: 02/01 @ 0100
[2018-01-30 05:15] LABS: M R Staph aureus DNA By PCR Negative (Negative); Probe Check PASS; Specimen Processing Control PASS
[2018-01-30 06:08] LABS: Absolute Lymphocyte Count 0.13 X10^3/ul (0.83-4.51); Basophil# 0.01 X10^3/uL; Basophil% 5.3 % (0-1); Eosinophil# 0.01 X10^3/uL; Eosinophils% 5.3 % (0-5); Hematocrit 22.7 % (40-54); Hemoglobin 7.3 g/dl (13.0-16.5); Lymphocyte # 0.13 X10^3/ul (4.0); Lymphocyte % 68.3 % (19-41); Mean Corp Hgb Conc 32.2 g/gl (32-36); Mean Corpuscular Hgb 29.3 pg (27.0-32.0); Mean Corpuscular Volume 91.2 fL (80-94); Mean Platelet Vol. 9.3 fl (6.2-12.0); Monocyte# 0.04 X10^3/uL; Monocyte% 21.1 % (0-10); Platelet Count 77 K/mm3 (150-450); RBC Distribution Width SD 50.7 fl (35.1-43.9); Red Blood Count 2.49 M/mm3 (4.6-6.2)
[2018-01-30 06:09] LABS: White Blood Count 0.2 K/mm3 (4.4-11.0)
[2018-01-30 06:10] LABS: Differential Indicated SCAN CRITERIA MET; POSITIVE COUNT YES; POSITIVE DIFFERENTIAL YES; POSITIVE MORPHOLOGY YES
[2018-01-30 06:14] LABS: Anion Gap 8 (5-15); BUN 15 mg/dL (7-18); BUN/Creat Ratio 23.9 RATIO (10-20); Chloride 102 mmol/L (98-107); Creatinine, Serum 0.63 mg/dL (0.70-1.30); EST Glomerular Filtration Rate 138 mL/min (>60); Est Glom Filt Rate - Afr Amer 167 mL/min (>60); Estimated Creatinine Clearance 119.13 ml/min; Glucose 90 mg/dL (74-106); Potassium 3.8 mmol/L (3.5-5.1); Sodium Level 139 mmol/L (136-145)
[2018-01-30] MEDS: Piperacil/Tazobactam 3.375 GM/50 ML ML IV ×3 (06:33→21:52)
[2018-01-30] MEDS: Lactated Ringers 1,000 ML 75 ML IV (06:33)
--- NOTE | 2018-01-30 10:54 | CON.PCM_ITS ---
Problem List (1) Neutropenic fever Status: Acute Reason for Consult: fever Consulted by: Dr. Schultz History of Present Illness: The patient is a 62 year old M on chemo via port for B cell lymphoma who presented to ED last night with one day acute onset of fever, chills, cough with brown sputum, and SOB. Some mild headache. No abd pain, no issues with port, no dysuria, no aches. No sick contacts. No recent travel. Last chemo was 01/23. Came to ED, dx with neutropenic fever and pneumonia, given vanc, levaquin, meropenem, now on vanc/zosyn. Fluc and then vori were ordered. No thrush, no dysphagia or sore throat. Doesn't think he ever got pneumonia shot. Full ROS performed and neg except as noted above. - Medical History Past Medical History (Chronic Problems): Chronic Problems (Last Reviewed 01/30/18 @ 03:42 by Valeriano Schultz MD) Lymphoma malignant, large cell (Chronic) Allergies/Adverse Reactions: Allergies No Known Allergies Allergy (Verified 01/29/18 23:14) Home Medications: Ambulatory Orders Medication Instructions Recorded Magnesium 200 mg PO DAILY 04/02/13 [place]-3 Fatty Acids/Fish Oil 1 each PO DAILY 04/02/13 [[place] 3 1,000 mg Softgel] Rivaroxaban [Xarelto] 20 mg PO DAILY 11/29/17 Vitamin D3/Vitamin K2 (Mk4) [K2 1 each PO DAILY 11/29/17 Plus D3 Tablet] - Social History Tobacco Use: non-smoker Vital Signs Temp Pulse Resp BP Pulse Ox 101.9 F H 86 18 127/73 H 94 01/30/18 07:47 01/30/18 08:11 01/30/18 08:11 01/30/18 07:47 01/30/18 08:11 Oxygen Delivery Method Room Air Weight: 79.4 kg Body Mass Index (BMI) 26.6 Microbiology Past 72 Hours 01/30/18 03:30 Legionella Antigen - Final Urine, Clean Catch 01/30/18 03:30 Streptococcus pneumoniae Antigen (M - Final Urine, Clean Catch Streptococcus pneumonia Ag Laboratory Tests Past 24 Hrs 01/30/18 01/30/18 01/30/18 03:40 05:50 05:50 WBC 0.2 L* RBC 2.49 L Hgb 7.3 L Hct 22.7 L MCV 91.2 MCH 29.3 MCHC 32.2 RDW 16.0 H RDW Differential 50.7 H Plt Count 77 L MPV 9.3 Immature Gran % (Auto) 0.000 Neut % (Auto) 0.0 L Lymph % (Auto) 68.3 H [place] % (Auto) 21.1 H Eos % (Auto) 5.3 H Baso % (Auto) 5.3 H Absolute Neuts (auto) 0.0 L Absolute Lymphs (auto) 0.13 L Total Counted Not Reportable Diff Path Review May foll Sodium 139 Potassium 3.8 Chloride 102 Carbon Dioxide 29.0 Anion Gap 8 BUN 15 Creatinine 0.63 L Estim Creat Clear Calc 119.13 Est GFR (MDRD) Af Amer 167 Est GFR (MDRD) Non-Af 138 BUN/Creatinine Ratio 23.9 H Glucose 90 Calcium 8.0 L MRSA (PCR) Negative - Other Studies Radiology: [] reviewed Other Studies: [] Route of nutrition/ use of supplements: [] Nutritional Intake: [] IV Site: [] Calle Catheter: [] - Physical Exam General: Alert, Oriented x3, Cooperative, No apparent distress HEENT: Atraumatic, PERRLA, EOMI Neck: Supple, No Nodes Lungs: Diminished, Rhonchi Cardiovascular: Regular rate, Regular Rhythm, No murmurs Abdomen: Bowel Sounds Present, Soft, Non Tender, Non-Distended Extremities: No edema Skin: No rashes IV Site: Central Line, without redness Musculoskeletal: No Tenderness to Palpation of Joints or Extremities Neurological: Cranial nerves II-XII grossly intact - Assessment/Plan Antibiotics: [] Assessment/Plan: [] Active and Suspected Problems (Last Reviewed 01/30/18 @ 03:42 by Valeriano Schultz MD) Multifocal pneumonia (Acute) Neutropenic fever due to pneumonia - S.pneumo Ag (+). Bcx pending. Port in place. Fever improved. No need for antifungal at this point given likely bacterial explanation. Keep vanc while bcx pending. Cont zosyn for broad empiric coverage while neutropenic. Will order resp viral pcr and sputum cx. pancytopenia s/p chemo for B cell lymphoma - Dr. Reed consulted Thank you, will follow
[2018-01-30] MEDS: Magnesium Oxide 400 MG Tablet 200 MG PO (10:56)
[2018-01-30] MEDS: Heparin Injection (Vial) 5,000 UNIT/ML VIAL 5000 UNIT SC ×3 (10:56→21:53)
[2018-01-30] MEDS: guaiFENesin 1,200 MG Tablet 1200 MG PO ×2 (10:56→21:53)
[2018-01-30] MEDS: Omega-3 Acid Ethyl Esters 1 GM Capsule PO (10:56)
--- NOTE | 2018-01-30 11:08 | NURSING ---
cps notified of need for flu swab and sputum collection
--- NOTE | 2018-01-30 11:20 | CASEMGMT ---
RYLEE IZQUIERDO Face to Face with patient for initial transition planning/care coordination assessment. RN CM introduced self and role at [facility]. Patient lying in bed, alert and oriented, at bedside. Patient willing to participate in assessment and is able to answer all questions appropriately. Care providers, pharmacy, and demographics verified. See link attached. Patient wishes to discharge home, denies need for home health at this time. Patient states he has no further needs or concerns at this time. CM to follow for discharge planning needs that may arise. Disposition Plan: Patient to discharge home with family support and follow-up plans in place. Lorie SIMON, RN, CM
--- NOTE | 2018-01-30 16:00 | NURSING ---
[facility]PS AWARE @ 1000 TO COLLECT NASAL FLU SWAB
--- NOTE | 2018-01-30 16:58 | PCM.CONS.B ---
Problem List (1) Multifocal pneumonia Status: Acute Comment: Hospital-acquired (2) Neutropenic fever Status: Acute (3) Lymphoma malignant, large cell Status: Chronic (4) History of DVT in adulthood Status: Acute (5) History of DVT of lower extremity Status: Chronic (6) Pancytopenia due to antineoplastic chemotherapy Status: Acute - Consult Date of Consult: 01/30/[address] Valeriano Schultz regarding a patient presented with bilateral pneumonia, and pancytopenia after chemotherapy for diffuse large B-cell lymphoma. I final recommendation will be communicated by electronic medical record, Dr. Garcia and also to the nursing team . - Reason for Consult History of Present Illness Date of Admission: 01/30/18 Chief Complaint: fever and chills x 1 day The patient is a 62 year old M with a significant history of B-cell lymphoma, who presented with a one day history of fever and chills. Family reported that patient's home temperature was 100.5 at home. Patient has a history of lymphadenopathy since 2013. Most of which in the axilla has been stable until recently. Patient developed DVT of the leg this summer and subsequent CT scan of the abdomen and pelvis show multiple enlarged retroperitoneal lymph node biopsy was positive for diffuse large B-cell lymphoma. He was started on Xarelto on 10/28/2017 treatment of acute DVT. Patient started chemotherapy as ago with R-CHOP. He was hospitalized after his cycle of chemotherapy with neutropenic fever on 01/11/2018. He did not require blood transfusion and blood culture remained negative after 5 days. Patient had prolonged neutropenia which recover and subsequently his last course of chemotherapy was dose reduced. He also received Neulasta injection after chemotherapy a week ago. He has occasional cough with no sputum. Denied chest pain or shortness of breath. Does have some dyspnea on exertion left leg swelling which is stable and slightly improved. Patient presented last evening with fever and chills. Daughter call me last evening and he was sent to emergency room for further evaluation. He denies any abdominal pain or urinary symptoms. Denies rash or pain. He did have a temperature of 102 in the emergency room, WBC 0.1 with ANC of 0. His x-ray show bilateral pneumonia. Patient started on empiric antibiotic vancomycin, Levaquin and subsequently started Zosyn after admission. He also started on Granix because of severe neutropenia. Patient complained of moderate fatigue, but no shortness of breath with scant cough, nonproductive. No chest pain, or hemoptysis. No increased leg swelling, bleeding or bruising. He was seen by ID, Dr. Reynoso this afternoon. Past Medical History Past Medical History (Chronic Problems): Chronic Problems (Last Reviewed 01/30/18 @ 03:42 by Valeriano Schultz MD) Lymphoma malignant, large cell (Chronic) Medical History: Medical History (Last Reviewed 01/30/18 @ 03:42 by Valeriano Schultz MD) Lymphoma C85.90 Pancytopenia D61.818 VTE (venous thromboembolism) I82.90 HTN (hypertension) I10 Allergies No Known Allergies Allergy (Verified 01/29/18 23:14) Home Medications: Ambulatory Orders Medication Instructions Recorded Magnesium 200 mg PO DAILY 04/02/13 [place]-3 Fatty Acids/Fish Oil 1 each PO DAILY 04/02/13 [[place] 3 1,000 mg Softgel] Rivaroxaban [Xarelto] 20 mg PO DAILY 11/29/17 Vitamin D3/Vitamin K2 (Mk4) [K2 1 each PO DAILY 11/29/17 Plus D3 Tablet] Surgical History: herniorrhaphy, - - Heart valve repair; surgery on right ear Lives: With Family Smoking Status: Never smoker Alcohol: None - *Family History Paternal History Items: Cancer - lung, - - stroke Maternal History Items: Heart Disease Review of Systems Constitutional: Reports: Chills, Fever Eyes: Denies: Blurred vision, Pain HEENT: Denies: Head Aches, Sinus Congestion, Sinus Drainage Cardiovascular: Denies: Chest Pain, Palpitations Respiratory: Reports: Shortness of Breath Gastrointestinal: Denies: Abdominal Pain, Nausea, Vomiting Genitourinary: Denies: Dysuria Musculoskeletal: Denies: Joint Pain, Joint Tenderness Skin: Denies: Rash, Wounds Neurological: Denies: Numbness, Tingling, Focal weakness Psychiatric: Denies: Anxiety, Depression, Homicidal Ideations, Suicidal Ideations Hematologic/ Lymphatic: Denies: Easy Bruising, Easy Bleeding Multifocal pneumonia (Acute) Pancytopenia secondary to chemotherapy (Acute) - Physical Exam General: Alert, Oriented x3, Cooperative HEENT: Atraumatic, PERRLA, EOMI, Normocephalic Neck: Supple, No JVD, Negative Carotid Bruits Lungs: Rales - bibasilar, Tachypneic; diminished breath sounds bases R > L Cardiovascular: Murmur, Tachycardic Abdomen: Bowel Sounds Present Extremities: Capillary Refill Less than 3 Seconds, Edema - R leg (family reports is due to previous DVT in groin) Skin: No rashes, No breakdown Musculoskeletal: No Tenderness to Palpation of Joints or Extremities Neurological: Cranial nerves II-XII grossly intact Psych/Mental Status: Normal Affect, Appropriate Vital Signs - 24 hr Temp Pulse Resp BP Pulse Ox 01/30/18 14:00 88 01/30/18 13:45 100.5 F H 82 18 102/57 L 100 01/30/18 08:11 86 18 94 01/30/18 07:47 101.9 F H 74 20 H 127/73 H 93 01/30/18 02:44 99.7 F H 77 16 120/62 95 01/30/18 01:00 102.3 F H 89 28 H 117/77 96 01/30/18 00:11 91 30 H 157/74 H 97 01/29/18 23:14 94 23 H 153/84 H 92 01/29/18 23:12 101.3 F H 94 27 H 148/85 H 92 Labs (Last 48 Hours) 01/29/18 01/29/18 01/29/18 23:30 23:34 23:34 WBC 0.1 L* RBC 2.82 L Hgb 8.3 L Hct 25.7 L MCV 91.1 MCH 29.4 MCHC 32.3 RDW 16.2 H RDW Differential 51.8 H Plt Count 96 L MPV 9.5 Immature Gran % (Auto) 0.000 Neut % (Auto) 7.2 L Lymph % (Auto) 64.3 H [place] % (Auto) 21.4 H Eos % (Auto) 7.1 H Baso % (Auto) 0.0 Absolute Neuts (auto) 0.0 L Absolute Lymphs (auto) 0.09 L Total Counted Not Reportable Diff Path Review September foll PT 15.3 H INR 1.2 Sodium Potassium Chloride Carbon Dioxide Anion Gap BUN Creatinine Estim Creat Clear Calc Est GFR (MDRD) Af Amer Est GFR (MDRD) Non-Af BUN/Creatinine Ratio Glucose Lactic Acid Calcium Total Bilirubin AST ALT Alkaline Phosphatase Total Protein Albumin Globulin Albumin/Globulin Ratio Urine Color Yellow Urine Clarity Clear Urine pH 8.0 Ur Specific [place] 1.015 Urine Protein Negative Urine Glucose (UA) Normal Urine Ketones Negative Urine Occult Blood Negative Urine Nitrite Negative Urine Bilirubin Negative Urine Urobilinogen Normal Ur Leukocyte Esterase Negative Urine RBC 0 SEEN Urine WBC 0 SEEN Ur Squamous Epith Cells 0 SEEN Urine Bacteria 0 SEEN Urine Mucus 0 SEEN MRSA (PCR) 01/29/18 01/29/18 01/30/18 23:34 23:34 03:40 WBC RBC Hgb Hct MCV MCH MCHC RDW RDW Differential Plt Count MPV Immature Gran % (Auto) Neut % (Auto) Lymph % (Auto) [place] % (Auto) Eos % (Auto) Baso % (Auto) Absolute Neuts (auto) Absolute Lymphs (auto) Total Counted Diff Path Review PT INR Sodium 137 Potassium 3.7 Chloride 100 Carbon Dioxide 29.0 Anion Gap 8 BUN 20 H Creatinine 0.80 Estim Creat Clear Calc 93.81 Est GFR (MDRD) Af Amer 127 Est GFR (MDRD) Non-Af 105 BUN/Creatinine Ratio 25.2 H Glucose 125 H Lactic Acid 1.8 Calcium 8.4 L Total Bilirubin 0.60 AST 32 ALT 58 Alkaline Phosphatase 85 Total Protein 5.3 L Albumin 2.6 L Globulin 2.7 Albumin/Globulin Ratio 1.0 Urine Color Urine Clarity Urine pH Ur Specific [place] Urine Protein Urine Glucose (UA) Urine Ketones Urine Occult Blood Urine Nitrite Urine Bilirubin Urine Urobilinogen Ur Leukocyte Esterase Urine RBC Urine WBC Ur Squamous Epith Cells Urine Bacteria Urine Mucus MRSA (PCR) Negative 01/30/18 01/30/18 05:50 05:50 WBC 0.2 L* RBC 2.49 L Hgb 7.3 L Hct 22.7 L MCV 91.2 MCH 29.3 MCHC 32.2 RDW 16.0 H RDW Differential 50.7 H Plt Count 77 L MPV 9.3 Immature Gran % (Auto) 0.000 Neut % (Auto) 0.0 L Lymph % (Auto) 68.3 H [place] % (Auto) 21.1 H Eos % (Auto) 5.3 H Baso % (Auto) 5.3 H Absolute Neuts (auto) 0.0 L Absolute Lymphs (auto) 0.13 L Total Counted Not Reportable Diff Path Review May foll PT INR Sodium 139 Potassium 3.8 Chloride 102 Carbon Dioxide 29.0 Anion Gap 8 BUN 15 Creatinine 0.63 L Estim Creat Clear Calc 119.13 Est GFR (MDRD) Af Amer 167 Est GFR (MDRD) Non-Af 138 BUN/Creatinine Ratio 23.9 H Glucose 90 Lactic Acid Calcium 8.0 L Total Bilirubin AST ALT Alkaline Phosphatase Total Protein Albumin Globulin Albumin/Globulin Ratio Urine Color Urine Clarity Urine pH Ur Specific [place] Urine Protein Urine Glucose (UA) Urine Ketones Urine Occult Blood Urine Nitrite Urine Bilirubin Urine Urobilinogen Ur Leukocyte Esterase Urine RBC Urine WBC Ur Squamous Epith Cells Urine Bacteria Urine Mucus MRSA (PCR) Microbiology 01/30/18 08:38 Sputum, Expectorated/Coughed Gram Stain - Final 01/30/18 11:20 Mucosa - Nasopharyngeal - Final 01/30/18 03:30 Urine, Clean Catch Legionella Antigen - Final 01/30/18 03:30 Urine, Clean Catch Streptococcus pneumoniae Antigen (M - Final Streptococcus pneumonia Ag Assessment/Plan All Active Problems (Last Reviewed 01/30/18 @ 03:42 by Valeriano Schultz MD) Neutropenic fever (Acute) Multifocal pneumonia -hospital-acquired (Acute) The patient is a 62 year old M with a significant history of B-cell lymphoma, with neutropenic fever; and also with radiographic evidence of multifocal pneumonia; and SIR consistent with sepsis secondary to pneumonia and possible multi drug resistant organism . Pancytopenia and immunocompromised host. Neutropenic fever/hospital-acquired pneumonia Fever 102.3 ANC 0 -Continue broad-spectrum antibiotics (Zosyn and vancomycin) -Consult ID B-cell Lymphoma - delay next cycle of chemotherapy until patient recovered from infection -Continue Granix 300mcg sq daily -Transfuse irradiated blood if Hgb < 7.0 for symptomatic anemia -Monitor CBC daily History of DVT - Stop Xarelto because of thrombocytopenia, anemia and risk for bleeding -Start heparin 5,000 units sq q 8 hours cc: Dr. Zac Herzog; Dr. Mekhi Pike; Dr. Kylah Hanna
[2018-01-30] MEDS: Zolpidem Tartrate 5 MG Tablet PO (21:53)
[2018-01-31] MEDS: Lactated Ringers 1,000 ML 75 ML IV ×2 (00:55→17:11)
[2018-01-31 04:40] VITALS: BP 139/75; PULSE 62; RESP 18; TEMP 36.7; O2SAT 95
[2018-01-31] MEDS: Heparin Injection (Vial) 5,000 UNIT/ML VIAL 5000 UNIT SC ×3 (05:51→21:55)
[2018-01-31] MEDS: Piperacil/Tazobactam 3.375 GM/50 ML ML IV ×3 (05:51→21:54)
[2018-01-31 07:45] VITALS: BP 130/85; PULSE 69; RESP 18; TEMP 37.1; O2SAT 97
[2018-01-31 08:00] VITALS: O2SAT 97
[2018-01-31 09:11] LABS: Absolute Lymphocyte Count 0.21 X10^3/ul (0.83-4.51); Absolute Neutrophil Count 0.1 X10^3/uL (2.0-7.7); Basophil# 0.01 X10^3/uL; Differential Indicated SCAN CRITERIA MET; Eosinophil# 0.02 X10^3/uL; Eosinophils% 3.9 % (0-5); Hematocrit 23.1 % (40-54); Hemoglobin 7.5 g/dl (13.0-16.5); Lymphocyte # 0.21 X10^3/ul (4.0); Lymphocyte % 41.2 % (19-41); Mean Corp Hgb Conc 32.5 g/gl (32-36); Mean Corpuscular Hgb 28.8 pg (27.0-32.0); Mean Corpuscular Volume 88.8 fL (80-94); Mean Platelet Vol. 10.4 fl (6.2-12.0); Monocyte# 0.16 X10^3/uL; Monocyte% 31.4 % (0-10); Neutrophil # 0.11 X10^3/uL (2.7-7.7); Neutrophil % 21.5 % (47-70); POSITIVE COUNT YES; POSITIVE DIFFERENTIAL YES; POSITIVE MORPHOLOGY YES; Platelet Count 63 K/mm3 (150-450); RBC Distribution Width CV 16.3 % (11.6-14.6); RBC Distribution Width SD 52.5 fl (35.1-43.9); White Blood Count 0.5 K/mm3 (4.4-11.0)
[2018-01-31 09:33] LABS: Hypochromasia 1+; Platelet Estimate MOD DEC (ADEQ)
[2018-01-31 10:12] LABS: Pathologist Review Reviewed
[2018-01-31 10:15] LABS: Pathologist Review Reviewed
--- NOTE | 2018-01-31 10:45 | PCM.PN.ID ---
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 (Acute) Pancytopenia due to antineoplastic chemotherapy (Acute) Subjective: Feeling much better, still some cough/sputum but improved. No fever. - Physical Exam General: Alert, Cooperative, No apparent distress Lungs: Rhonchi - mild on R Cardiovascular: Regular rate, Regular Rhythm Abdomen: Soft, Non Tender, Non-Distended Skin: No rashes Vital Signs Temp Pulse Resp BP Pulse Ox 98.7 F 69 18 130/85 H 97 01/31/18 07:45 01/31/18 07:45 01/31/18 07:45 01/31/18 07:45 01/31/18 08:00 Oxygen Delivery Method Room Air Weight: 79.4 kg Body Mass Index (BMI) 26.6 Intake and Output for Last 24 Hours 01/29/18 01/30/18 01/31/18 23:59 23:59 23:59 Intake Total 2881 / 2881 977 / 977 Output Total 950 / 950 1025 / 1025 Balance 1931 / 193 -48 / -48 Microbiology Past 72 Hours 01/30/18 08:38 Gram Stain - Final Sputum, Expectorated/Coughed 01/30/18 11:20 - Final Mucosa - Nasopharyngeal 01/30/18 03:30 Legionella Antigen - Final Urine, Clean Catch 01/30/18 03:30 Streptococcus pneumoniae Antigen (M - Final Urine, Clean Catch Streptococcus pneumonia Ag Laboratory Tests Past 24 Hrs 01/30/18 01/31/18 05:50 08:45 WBC 0.5 L* RBC 2.60 L Hgb 7.5 L Hct 23.1 L MCV 88.8 MCH 28.8 MCHC 32.5 RDW 16.3 H RDW Differential 52.5 H Plt Count 63 L MPV 10.4 Immature Gran % (Auto) 0.000 Neut % (Auto) 21.5 L Lymph % (Auto) 41.[address] [place] % (Auto) 31.4 H Eos % (Auto) 3.9 Baso % (Auto) 2.0 H Absolute Neuts (auto) 0.1 L Absolute Lymphs (auto) 0.21 L Total Counted Not Reportable Differential Comment Diff Path Review Reviewed September foll Platelet Estimate MOD DEC Hypochromasia 1+ Medical Necessity - Tobacco Use Smoking Status: Never smoker Route of nutrition/ use of supplements: [] Nutritional Intake: [] IV Site: [] Calle Catheter: [] - Assessment/Plan Antibiotics: [] Assessment/Plan: [] Active and Suspected Problems (Last Reviewed 01/30/18 @ 03:42 by Valeriano Schultz MD) Multifocal pneumonia (Acute) Neutropenic fever due to pneumonia - S.pneumo Ag (+). Bcx ngtd. Port in place. Fever resolved, wbc improving. Ucx with small growth of Ecoli. Cont vanc/zosyn. If bcx neg tomorrow, ok to stop vanc. Plan will be for him to go home on po abx once neutropenia resolves, possibly omnicef depending on urine results. pancytopenia s/p chemo for B cell lymphoma - Dr. Reed following D/w Dr. Mg, will follow
[2018-01-31] MEDS: TBO-FILGRASTIM 480 MCG/0.8 ML ML SC (10:56)
[2018-01-31] MEDS: Magnesium Oxide 400 MG Tablet 200 MG PO (10:56)
[2018-01-31] MEDS: Omega-3 Acid Ethyl Esters 1 GM Capsule PO (10:56)
[2018-01-31] MEDS: guaiFENesin 1,200 MG Tablet 1200 MG PO ×2 (10:57→21:54)
[2018-01-31 12:00] VITALS: BP 100/54; PULSE 79; RESP 18; TEMP 37.7; O2SAT 95
--- NOTE | 2018-01-31 12:58 | PCM.PROGNOTE ---
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 (Acute) Pancytopenia due to antineoplastic chemotherapy (Acute) Subjective: He has no complaints morning. He was able to walk the halls yesterday. Has occasional cough. No hemoptysis. No nausea. - Physical Exam General: Alert, Oriented x3 Oral: Moist Mucosa Neck: No Nodes Lungs: Normal air movement, No rhonchi Cardiovascular: Regular Rhythm Abdomen: Soft, Non Tender Vital Signs Temp Pulse Resp BP Pulse Ox 98.7 F 69 18 130/85 H 97 01/31/18 07:45 01/31/18 07:45 01/31/18 07:45 01/31/18 07:45 01/31/18 08:00 Oxygen Delivery Method Room Air Weight: 79.4 kg Body Mass Index (BMI) 26.6 Intake and Output for Last 24 Hours 01/29/18 01/30/18 01/31/18 23:59 23:59 23:59 Intake Total 2881 / 2881 977 / 977 Output Total 950 / 950 1025 / 1025 Balance 1931 / 193 -48 / -48 Microbiology Past 72 Hours 01/30/18 08:38 Gram Stain - Final Sputum, Expectorated/Coughed Respiratory Culture - Preliminary Appears to be normal respiratory ryann. Further studies to follow. 01/30/18 11:20 - Final Mucosa - Nasopharyngeal 01/30/18 03:30 Legionella Antigen - Final Urine, Clean Catch 01/30/18 03:30 Streptococcus pneumoniae Antigen (M - Final Urine, Clean Catch Streptococcus pneumonia Ag Laboratory Tests Past 24 Hrs 01/30/18 01/31/18 05:50 08:45 WBC 0.5 L* RBC 2.60 L Hgb 7.5 L Hct 23.1 L MCV 88.8 MCH 28.8 MCHC 32.5 RDW 16.3 H RDW Differential 52.5 H Plt Count 63 L MPV 10.4 Immature Gran % (Auto) 0.000 Neut % (Auto) 21.5 L Lymph % (Auto) 41.2 H [place] % (Auto) 31.4 H Eos % (Auto) 3.9 Baso % (Auto) 2.0 H Absolute Neuts (auto) 0.1 L Absolute Lymphs (auto) 0.21 L Total Counted Not Reportable Differential Comment Diff Path Review Reviewed September foll Platelet Estimate MOD DEC Hypochromasia 1+ Medical Necessity - Tobacco Use Smoking Status: Never smoker Assessment/Plan All Active Problems (Last Reviewed 01/30/18 @ 03:42 by Valeriano Schultz MD) Sepsis (Acute) Neutropenic fever (Acute) Multifocal pneumonia (Acute) History of DVT in adulthood (Acute) Pancytopenia due to antineoplastic chemotherapy (Acute) 1) NF Assessment: -Secondary to pneumococcal pneumonia. -Clinically doing well and vancomycin. -Appreciate ID input. Plan: -Plan to rotate to by mouth antibiotics once white count continues to improve. 2) DLBC NHL. Assessment; -Second episode of neutropenic fever despite dose reduction and continued use of PEG filgrastim. Plan: -Further dose reduction and delay next cycle of chemotherapy.
[2018-01-31 14:00] VITALS: BP 121/71; PULSE 88; RESP 18; TEMP 37.2; O2SAT 95
[2018-01-31 14:58] LABS: Pathologist Review Reviewed
--- NOTE | 2018-01-31 16:57 | PCM.PN.HOSP ---
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 (Acute) Pancytopenia due to antineoplastic chemotherapy (Acute) Subjective: f/u for neutropenic fever patient seen and examined family in the room visiting as well Feels better and today patient was up to have a shower no fevers in last 12 hours Vitals/I&O's: Vital Signs Temp Pulse Resp BP Pulse Ox 99.8 F H 79 18 100/54 L 95 01/31/18 12:00 01/31/18 12:00 01/31/18 12:00 01/31/18 12:00 01/31/18 12:00 Oxygen Delivery Method Room Air Weight: 79.4 kg Body Mass Index (BMI) 26.6 Intake and Output for Last 24 Hours 01/29/18 01/30/18 01/31/18 23:59 23:59 23:59 Intake Total 2881 / 2881 3152 / 3152 Output Total 950 / 950 1025 / 1025 Balance 1930 / 1930 2126 / 2126 General: Alert, Oriented x3, Cooperative, No apparent distress, Well developed HEENT: Atraumatic Oral: Moist Mucosa Neck: Supple Lungs: Clear to auscultation Cardiovascular: Regular rate Abdomen: Soft, Obese Extremities: No edema Neurological: Cranial nerves II-XII grossly intact, Neuro grossly intact Psych/Mental Status: Normal Affect, Appropriate, Alert and oriented to time, place, person, mood and affect Microbiology Past 72 Hours 01/30/18 08:38 Sputum, Expectorated/Coughed Gram Stain - Final 01/30/18 08:38 Sputum, Expectorated/Coughed Respiratory Culture - Preliminary Appears to be normal respiratory ryann. Further studies to follow. 01/30/18 11:20 Mucosa - Nasopharyngeal - Final 01/30/18 03:30 Urine, Clean Catch Legionella Antigen - Final 01/30/18 03:30 Urine, Clean Catch Streptococcus pneumoniae Antigen (M - Final Streptococcus pneumonia Ag Laboratory Results 01/30/18 05:50: Diff Path Review Reviewed 01/31/18 08:45: WBC 0.5 L*, RBC 2.60 L, Hgb 7.5 L, Hct 23.1 L, MCV 88.8, MCH 28.8, MCHC 32.5, RDW 16.3 H, RDW Differential 52.5 H, Plt Count 63 L, MPV 10.4, Immature Gran % (Auto) 0.000, Neut % (Auto) 21.5 L, Lymph % (Auto) 41.2 H, [place] % (Auto) 31.4 H, Eos % (Auto) 3.9, Baso % (Auto) 2.0 H, Absolute Neuts (auto) 0.1 L, Absolute Lymphs (auto) 0.21 L, Total Counted Not Reportable, Differential Comment , Diff Path Review Reviewed, Platelet Estimate MOD DEC, Hypochromasia 1+ Current Medications Acetaminophen (Tylenol) 650 mg PO Q6H PRN PRN PRN Reason: fever >100.4 Last Admin: 01/30/18 02:59 Dose: 650 mg Bisacodyl (Dulcolax) 5 mg PO DAILY PRN PRN PRN Reason: Constipation Guaifenesin (Mucinex) 1,200 mg PO BID [facility] Last Admin: 01/31/18 10:57 Dose: 1,200 mg Heparin Sodium (Beef Lung) (Heparin 500 Unit/5 Ml (100/Ml)) 500 unit IV UD PRN PRN Reason: HEPARIN FLUSH Heparin Sodium (Porcine) (Heparin Na) 5,000 unit SC Q8 [facility] Last Admin: 01/31/18 12:49 Dose: 5,000 unit Piperacillin Sod/Tazobactam Sod (Zosyn) 3.375 gm in 50 mls @ 12.5 mls/hr IV Q8 [facility] Last Admin: 01/31/18 05:51 Dose: 12.5 mls/hr Sodium Chloride () 250 mls @ 15 mls/hr IV .[id number] PRN PRN Reason: SALINE FLUSH Vancomycin HCl 1,750 mg/ (Sodium Chloride) 535 mls @ 250 mls/hr IV Q12H [facility] Last Admin: 01/31/18 12:49 Dose: 250 mls/hr Lactated Ringer's () 1,000 mls @ 75 mls/hr IV .[id number] [facility] Stop: 02/01/18 09:19 Last Admin: 01/31/18 00:55 Dose: 75 mls/hr Magnesium Hydroxide (Milk Of Magnesia) 30 ml PO DAILY PRN PRN PRN Reason: Constipation Magnesium Oxide (Mag-Ox 400) 200 mg PO DAILY [facility] Last Admin: 01/31/18 10:56 Dose: 200 mg Nutritional Formula (Lactose Free) (Ensure Enlive) 120 ml PO 4X/DAY [facility] Last Admin: 01/31/18 12:49 Dose: 120 ml Xsnbt-5-Ysea Ethyl Esters (Lovaza) 1 gm PO DAILY [facility] Last Admin: 01/31/18 10:56 Dose: 1 gm Ondansetron HCl (Zofran) 4 mg IV Q8H PRN PRN PRN Reason: Nausea Sodium Chloride () 10 ml IV UD PRN PRN Reason: R PORT FLUSH Last Admin: 01/31/18 08:45 Dose: 10 ml Tbo-Filgrastim (Granix) 480 mcg SC DAILY [facility] Stop: 02/02/18 10:01 Last Admin: 01/31/18 10:56 Dose: 480 mcg Zolpidem Tartrate (Ambien (Generic)) 5 mg PO QHS PRN PRN PRN Reason: SLEEP Last Admin: 01/30/18 21:53 Dose: 5 mg Medical Necessity - Tobacco Use Smoking Status: Never smoker Assessment/Plan All Active Problems (Last Reviewed 01/30/18 @ 03:42 by Valeriano Schultz MD) Sepsis (Acute) Neutropenic fever (Acute) Multifocal pneumonia (Acute) History of DVT in adulthood (Acute) Pancytopenia due to antineoplastic chemotherapy (Acute) 1. Neutropenic fever. ANC on admission was zero. Started on broad spectrum antibiotics empirically and cultures still being awaited Infectious disease following and input is much appreciated. 2. Profound neutropenia secondary to chemotherapy for B cell lymphoma. Started on Granix yesterday and will continue to monitor counts Code Visit Inpatient E&M: 31221 Subs Hosp L3
--- NOTE | 2018-01-31 17:01 | PN_ITS ---
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 (Acute) Pancytopenia due to antineoplastic chemotherapy (Acute) Subjective: f/u for neutropenic fever patient seen and examined family in the room visiting as well Feels better and today patient was up to have a shower no fevers in last 12 hours Vitals/I&O's: Vital Signs Temp Pulse Resp BP Pulse Ox 99.8 F H 79 18 100/54 L 95 01/31/18 12:00 01/31/18 12:00 01/31/18 12:00 01/31/18 12:00 01/31/18 12:00 Oxygen Delivery Method Room Air Weight: 79.4 kg Body Mass Index (BMI) 26.6 Intake and Output for Last 24 Hours 01/29/18 01/30/18 01/31/18 23:59 23:59 23:59 Intake Total 2881 / 2881 3152 / 3152 Output Total 950 / 950 1025 / 1025 Balance 1930 / 1930 2126 / 2126 General: Alert, Oriented x3, Cooperative, No apparent distress, Well developed HEENT: Atraumatic Oral: Moist Mucosa Neck: Supple Lungs: Clear to auscultation Cardiovascular: Regular rate Abdomen: Soft, Obese Extremities: No edema Neurological: Cranial nerves II-XII grossly intact, Neuro grossly intact Psych/Mental Status: Normal Affect, Appropriate, Alert and oriented to time, place, person, mood and affect Microbiology Past 72 Hours 01/30/18 08:38 Sputum, Expectorated/Coughed Gram Stain - Final 01/30/18 08:38 Sputum, Expectorated/Coughed Respiratory Culture - Preliminary Appears to be normal respiratory ryann. Further studies to follow. 01/30/18 11:20 Mucosa - Nasopharyngeal - Final 01/30/18 03:30 Urine, Clean Catch Legionella Antigen - Final 01/30/18 03:30 Urine, Clean Catch Streptococcus pneumoniae Antigen (M - Final Streptococcus pneumonia Ag Laboratory Results 01/30/18 05:50: Diff Path Review Reviewed 01/31/18 08:45: WBC 0.5 L*, RBC 2.60 L, Hgb 7.5 L, Hct 23.1 L, MCV 88.8, MCH 28.8, MCHC 32.5, RDW 16.3 H, RDW Differential 52.5 H, Plt Count 63 L, MPV 10.4, Immature Gran % (Auto) 0.000, Neut % (Auto) 21.5 L, Lymph % (Auto) 41.2 H, [place] % (Auto) 31.4 H, Eos % (Auto) 3.9, Baso % (Auto) 2.0 H, Absolute Neuts (auto) 0.1 L, Absolute Lymphs (auto) 0.21 L, Total Counted Not Reportable, Differential Comment , Diff Path Review Reviewed, Platelet Estimate MOD DEC, Hypochromasia 1+ Current Medications Acetaminophen (Tylenol) 650 mg PO Q6H PRN PRN PRN Reason: fever >100.4 Last Admin: 01/30/18 02:59 Dose: 650 mg Bisacodyl (Dulcolax) 5 mg PO DAILY PRN PRN PRN Reason: Constipation Guaifenesin (Mucinex) 1,200 mg PO BID [facility] Last Admin: 01/31/18 10:57 Dose: 1,200 mg Heparin Sodium (Beef Lung) (Heparin 500 Unit/5 Ml (100/Ml)) 500 unit IV UD PRN PRN Reason: HEPARIN FLUSH Heparin Sodium (Porcine) (Heparin Na) 5,000 unit SC Q8 [facility] Last Admin: 01/31/18 12:49 Dose: 5,000 unit Piperacillin Sod/Tazobactam Sod (Zosyn) 3.375 gm in 50 mls @ 12.5 mls/hr IV Q8 [facility] Last Admin: 01/31/18 05:51 Dose: 12.5 mls/hr Sodium Chloride () 250 mls @ 15 mls/hr IV .[id number] PRN PRN Reason: SALINE FLUSH Vancomycin HCl 1,750 mg/ (Sodium Chloride) 535 mls @ 250 mls/hr IV Q12H [facility] Last Admin: 01/31/18 12:49 Dose: 250 mls/hr Lactated Ringer's () 1,000 mls @ 75 mls/hr IV .[id number] [facility] Stop: 02/01/18 09:19 Last Admin: 01/31/18 00:55 Dose: 75 mls/hr Magnesium Hydroxide (Milk Of Magnesia) 30 ml PO DAILY PRN PRN PRN Reason: Constipation Magnesium Oxide (Mag-Ox 400) 200 mg PO DAILY [facility] Last Admin: 01/31/18 10:56 Dose: 200 mg Nutritional Formula (Lactose Free) (Ensure Enlive) 120 ml PO 4X/DAY [facility] Last Admin: 01/31/18 12:49 Dose: 120 ml Ksedf-6-Wjly Ethyl Esters (Lovaza) 1 gm PO DAILY [facility] Last Admin: 01/31/18 10:56 Dose: 1 gm Ondansetron HCl (Zofran) 4 mg IV Q8H PRN PRN PRN Reason: Nausea Sodium Chloride () 10 ml IV UD PRN PRN Reason: R PORT FLUSH Last Admin: 01/31/18 08:45 Dose: 10 ml Tbo-Filgrastim (Granix) 480 mcg SC DAILY [facility] Stop: 02/02/18 10:01 Last Admin: 01/31/18 10:56 Dose: 480 mcg Zolpidem Tartrate (Ambien (Generic)) 5 mg PO QHS PRN PRN PRN Reason: SLEEP Last Admin: 01/30/18 21:53 Dose: 5 mg Medical Necessity - Tobacco Use Smoking Status: Never smoker Assessment/Plan All Active Problems (Last Reviewed 01/30/18 @ 03:42 by Valeriano Schultz MD) Sepsis (Acute) Neutropenic fever (Acute) Multifocal pneumonia (Acute) History of DVT in adulthood (Acute) Pancytopenia due to antineoplastic chemotherapy (Acute) 1. Neutropenic fever. ANC on admission was zero. Started on broad spectrum antibiotics empirically and cultures still being awaited Infectious disease following and input is much appreciated. 2. Profound neutropenia secondary to chemotherapy for B cell lymphoma. Started on Granix yesterday and will continue to monitor counts Code Visit Inpatient E&M: 41380 Subs Hosp L3
[2018-01-31 20:00] VITALS: BP 155/82; PULSE 76; RESP 18; TEMP 37.3; O2SAT 95
[2018-01-31] MEDS: Acetaminophen 325 MG Tablet 650 MG PO (21:54)
[2018-02-01 02:00] VITALS: BP 146/84; PULSE 72; RESP 16; TEMP 37.2; O2SAT 96
[2018-02-01 02:16] LABS: Vancomycin, Trough Level 13.3 ug/mL (5.0-15.0)
[2018-02-01] MEDS: Lactated Ringers 1,000 ML 75 ML IV (05:25)
[2018-02-01 05:59] LABS: Absolute Lymphocyte Count 0.34 X10^3/ul (0.83-4.51); Absolute Neutrophil Count 0.9 X10^3/uL (2.0-7.7); Basophil# 0.02 X10^3/uL; Basophil% 1.2 % (0-1); Eosinophil# 0.02 X10^3/uL; Eosinophils% 1.2 % (0-5); Hematocrit 23.2 % (40-54); Hemoglobin 7.5 g/dl (13.0-16.5); Lymphocyte # 0.34 X10^3/ul (4.0); Lymphocyte % 20.5 % (19-41); Mean Corp Hgb Conc 32.3 g/gl (32-36); Mean Corpuscular Hgb 29.4 pg (27.0-32.0); Mean Platelet Vol. 11.3 fl (6.2-12.0); Monocyte# 0.34 X10^3/uL; Monocyte% 20.5 % (0-10); Neutrophil # 0.92 X10^3/uL (2.7-7.7); Neutrophil % 55.4 % (47-70); Platelet Count 58 K/mm3 (150-450); RBC Distribution Width CV 15.3 % (11.6-14.6); RBC Distribution Width SD 49.3 fl (35.1-43.9); Red Blood Count 2.55 M/mm3 (4.6-6.2); White Blood Count 1.7 K/mm3 (4.4-11.0)
[2018-02-01 06:01] LABS: Differential Indicated SCAN CRITERIA MET; POSITIVE COUNT NO; POSITIVE DIFFERENTIAL YES; POSITIVE MORPHOLOGY YES
[2018-02-01] MEDS: Heparin Injection (Vial) 5,000 UNIT/ML VIAL 5000 UNIT SC ×2 (06:31→14:13)
[2018-02-01] MEDS: Piperacil/Tazobactam 3.375 GM/50 ML ML IV ×2 (06:31→14:09)
[2018-02-01 08:00] VITALS: BP 133/75; PULSE 75; RESP 18; TEMP 37.2; O2SAT 98
[2018-02-01 08:42] VITALS: RESP 18
[2018-02-01] MEDS: TBO-FILGRASTIM 480 MCG/0.8 ML ML SC (09:02)
[2018-02-01] MEDS: guaiFENesin 1,200 MG Tablet 1200 MG PO (09:03)
[2018-02-01] MEDS: Magnesium Oxide 400 MG Tablet 200 MG PO (09:03)
[2018-02-01] MEDS: Omega-3 Acid Ethyl Esters 1 GM Capsule PO (09:03)
--- NOTE | 2018-02-01 14:05 | PCM.DC ---
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 (Acute) History of DVT of lower extremity (Chronic) Pancytopenia due to antineoplastic chemotherapy (Acute) Reason(s) for Visit for Discharge Instructions: neutropenic fever You will use the following diet at home:: No restrictions, Regular Your food should be the consistency of: Regular Discharge Activity: Return to Normal Activity Allergies/Adverse Reactions: Allergies No Known Allergies Allergy (Verified 01/29/18 23:14) Medications to take at Discharge Magnesium 200 mg PO DAILY 04/02/13 Rainbow-3 Fatty Acids/Fish Oil [Rainbow 3 1,000 mg Softgel] 1 each PO DAILY 04/02/13 Rivaroxaban [Xarelto] 20 mg PO DAILY 11/29/17 Vitamin D3/Vitamin K2 (Mk4) [K2 Plus D3 Tablet] 1 each PO DAILY 11/29/17 Cefdinir [Omnicef [equiv]] 300 mg PO Q12H 10 Days #20 cap 02/01/18 L. Rhamnosus GG/Inulin [Culturelle Probiotics Capsule] 1 ea PO BID 15 Days #30 cap 02/01/18 The following prescriptions were given: Cefdinir [Omnicef [equiv]] 300 mg PO Q12H 10 Days #20 cap L. Rhamnosus GG/Inulin [Culturelle Probiotics Capsule] 1 ea PO BID 15 Days #30 cap Primary Care Physician: Kylah Hanna DO [Primary Care Provider] - Test Results: Test results from this visit will be discussed in further detail at your follow-up appointment, if applicable. Please Follow Up With: Zac Herzog DO When: 1 week Proposed Discharge Date: 02/01/18
--- NOTE | 2018-02-01 14:06 | PCM.DC.SUM ---
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 Admitted to the hospital on account of several days of high grade fever and chills, anorexia and malaise. Found to be profoundly neutropenic and leukopenic on admission with ANC of 0. Patient was started on Granix and on broad spectrum bactericidal antibiotics and has improved. Today WBC is 1.7 and patient has been afebrile for greater than 48 hours and is essentially doing better. Was seen by infectious disease and hematology-oncology during his stay with active involvement in patient's care. He will be getting a CBC check in the next 5 days and will be on oral antibiotics for another 10 days. [] Discharge Diet: No Restrictions Discharge Activity: Return to Normal Activity Home Medications: Medications to take at Discharge Magnesium 200 mg PO DAILY 04/02/13 [place]-3 Fatty Acids/Fish Oil [[place] 3 1,000 mg Softgel] 1 each PO DAILY 04/02/13 Rivaroxaban [Xarelto] 20 mg PO DAILY 11/29/17 Vitamin D3/Vitamin K2 (Mk4) [K2 Plus D3 Tablet] 1 each PO DAILY 11/29/17 Cefdinir [Omnicef [equiv]] 300 mg PO Q12H 10 Days #20 cap 02/01/18 L. Rhamnosus GG/Inulin [Culturelle Probiotics Capsule] 1 ea PO BID 15 Days #30 cap 02/01/18 Following Prescrptions Were Given to Patient: Cefdinir [Omnicef [equiv]] 300 mg PO Q12H 10 Days #20 cap L. Rhamnosus GG/Inulin [Culturelle Probiotics Capsule] 1 ea PO BID 15 Days #30 cap Primary Care Physician: Kylah Hanna DO [Primary Care Provider] - Please Follow Up With: Zac Herzog DO When: 1 week Disposition: Home Minutes spent on discharge:: 35 Patient Condition:: Good Medical Necessity - Tobacco Use Smoking Status: Never smoker Meaningful Use Info Meaningful Use Diagnoses (Choose all that apply): None applicable Code Visit Inpatient E&M: 90249 Disch Hosp
--- NOTE | 2018-02-01 14:11 | DS.PCM_ITS ---
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 Admitted to the hospital on account of several days of high grade fever and chills, anorexia and malaise. Found to be profoundly neutropenic and leukopenic on admission with ANC of 0. Patient was started on Granix and on broad spectrum bactericidal antibiotics and has improved. Today WBC is 1.7 and patient has been afebrile for greater than 48 hours and is essentially doing better. Was seen by infectious disease and hematology-oncology during his stay with active involvement in patient's care. He will be getting a CBC check in the next 5 days and will be on oral antibiotics for another 10 days. [] Discharge Diet: No Restrictions Discharge Activity: Return to Normal Activity Home Medications: Medications to take at Discharge Magnesium 200 mg PO DAILY 04/02/13 [place]-3 Fatty Acids/Fish Oil [[place] 3 1,000 mg Softgel] 1 each PO DAILY Rivaroxaban [Xarelto] 20 mg PO DAILY 11/29/17 Vitamin D3/Vitamin K2 (Mk4) [K2 Plus D3 Tablet] 1 each PO DAILY 11/29/17 Cefdinir [Omnicef [equiv]] 300 mg PO Q12H 10 Days #20 cap 02/01/18 L. Rhamnosus GG/Inulin [Culturelle Probiotics Capsule] 1 ea PO BID 15 Days #30 cap 02/01/18 Following Prescrptions Were Given to Patient: Cefdinir [Omnicef [equiv]] 300 mg PO Q12H 10 Days #20 cap L. Rhamnosus GG/Inulin [Culturelle Probiotics Capsule] 1 ea PO BID 15 Days #30 cap Primary Care Physician: Kylah Hanna DO [Primary Care Provider] - Please Follow Up With: Zac Herzog DO When: 1 week Disposition: Home Minutes spent on discharge:: 35 Patient Condition:: Good Medical Necessity - Tobacco Use Smoking Status: Never smoker Meaningful Use Info Meaningful Use Diagnoses (Choose all that apply): None applicable Code Visit Inpatient E&M: 32609 Disch Hosp
[2018-02-01 15:59] VITALS: BP 132/76; PULSE 80; RESP 18; TEMP 37.7; O2SAT 98
--- NOTE | 2018-02-05 15:47 | CASEMGMT ---
RYLEE IZQUIERDO Discharge Follow-up Phone Call: ARLIN: Melita Strata: 3 Call Date: 02/05/18 Discharge Date: 02/01/18 Time of Call: 1345 Duration: 3 min Admitting Diagnosis: Multilobar pneumonia RYLEE IZQUIERDO completed follow-up phone call after recent hospitalization. Patient states that he is feeling somewhat better. Patient had no questions regarding discharge instructions or medications. Patient was able to fill all prescriptions without any issues. Patient has followed up with Dr. Herzog. Patient inquired about setting up payment plan, RYLEE IZQUIERDO advised patient to call number on statement.
== END 2018-02-01 16:20 | disposition home or self-care (01) | DRG 808 ==
LOC: ED 01-30 01:25 → MS3 01-30 02:00
PROVIDERS: Admitting Provider Hospitalist; Emergency Provider Emergency Medicine; Family Provider Internal Medicine; PCP Internal Medicine; Visit Provider Internal Medicine
DX: D70.3 Neutropenia due to infection (principal); J13 Pneumonia due to Streptococcus pneumoniae; C85.10 Unspecified B-cell lymphoma, unspecified site; D61.810 Antineoplastic chemotherapy induced pancytopenia; Z86.718 Personal history of other venous thrombosis and embolism; Z79.01 Long term (current) use of anticoagulants; T45.1X5A Adverse effect of antineoplastic and immunosuppressive drugs, initial encounter; R50.81 Fever presenting with conditions classified elsewhere
CPT/HCPCS: 36415; 36591; 71045; 80048; 80053; 80202; 81001; 83605; 85025; 85610; 87040; 87070; 87086; 87088; 87186; 87205; 87449; 87631; 87641; 97110; 97116; 97163; 97166; 97530; 97802; 99251; 99282; J2185; J7030; J7040; J7120; A4216; G0463; J1447

== ENCOUNTER → 2018-02-12 10:10 | Outpatient (CLI) | payer BC, SELFPAY ==
--- NOTE | 2018-02-12 10:13 | RAD_ITS ---
STUDY: X-RAY CHEST REASON FOR EXAM: Male, 62 years old. Cough. Pneumonia follow-up. TECHNIQUE: PA and lateral views of the chest. COMPARISON: Portable AP upright chest x-ray January 29, 2018. FINDINGS: Chemotherapy port again seen in the soft tissues of the left chest wall with catheter passes from the subclavian vein to the superior vena cava. There is been significant reaeration at the lung bases, with some residual minor stranding. No new consolidation. There is no demonstrated pleural abnormality. Normal size heart. A mitral valve prosthesis is noted. Normal mediastinum and karyna. Normal visualized pulmonary arteries. Normal visualized aortic arch and descending thoracic aorta. There are stable multilevel degenerative changes of the visualized thoracic spine. Right shoulder arthroplasty with lateral right humeral head prosthesis again noted. There is no demonstrated abnormality of the visualized soft tissue structures of the upper abdomen. RAD/Chest PA and Lateral IMPRESSION: Significant clearing of basilar densities with residual minor stranding. No new infiltrate or CHF Electronically Signed: Caleb Lopez MD at 19:59 EDT , Service support ,
== END ==
PROVIDERS: Family Provider Internal Medicine; PCP Internal Medicine; Visit Provider Internal Medicine
DX: J15.9 Unspecified bacterial pneumonia (principal)
CPT/HCPCS: 71046

== ENCOUNTER → 2018-03-20 08:43 | Outpatient (CLI) | payer BC, SELFPAY ==
--- NOTE | 2018-03-20 08:44 | ECHODONC_ITS ---
Reason For Study: MV Repair Procedure This was a 2D Doppler, Color Flow transthoracic echocardiogram. Myocardial strain analysis was performed in this exam to aid in the assessment of cardiac function. Exam performed in department. Left Ventricle Normal LV size. Left ventricular systolic function is normal. The estimated ejection fraction is 55 %. Stage 1 diastolic dysfunction. The global longitudinal strain is normal. The global longitudinal strain = -20.4 % (normal). No regional wall motion abnormalities noted. Right Ventricle Normal RV size. Normal systolic function. Atria The left atrium is mildly enlarged. The right atrium is mildly enlarged. Mitral Valve Status post mitral valve repair. Status post mitral valve repair with annuloplasty ring. Tricuspid Valve Normal tricuspid valve. Mild (1+) tricuspid valve insufficiency. Pulmonary artery systolic pressure is 29 mmHg. Aortic Valve Trisinus/trileaflet aortic valve. Mild focal aortic valve calcification. Pulmonic Valve Normal pulmonic valve. Great Vessels Normal aortic root. The pulmonary artery is normal size. Normal inferior vena cava. Pericardium/Pleural No pericardial effusion. MMode/2D Measurements & Calculations LVIDd: 3.2 cm IVSd: 1.5 cm Ao root diam: 3.6 cm LVIDs: 2.2 cm LVPWd: 1.4 cm LA dimension: 3.6 cm RVDd: 4.2 cm FS: 32.4 % LAV(MOD-bp): 78.2 ml LVAd ap4: 41.7 cm2 SV(MOD-sp4): 83.8 ml LAV(MOD-bp) Indexed: 39.7 ml/m2 EDV(MOD-sp4): 140.1 ml LAV(MOD-sp2): 85.3 ml EDV(sp4-el): 145.1 ml LAV(MOD-sp4): 69.1 ml LVAs ap4: 22.1 cm2 ESV(MOD-sp4): 56.3 ml ESV(sp4-el): 54.3 ml EF(MOD-sp4): 59.8 % EF(sp4-el): 62.6 % SV(sp4-el): 90.9 ml LA A4 area: 21.9 cm2 RA A4 area: 20.6 cm2 Time Measurements MV dec time: 0.28 sec Doppler Measurements & Calculations MV E max koby: 117.7 cm/sec Lat Peak E' Koby: 11.8 cm/sec Med Peak E' Koby: 9.0 cm/sec MV A max koby: 141.1 cm/sec E/E' lat: 10.0 E/E' med: 13.0 MV E/A: 0.83 MV V2 max: 178.2 cm/sec MV P1/2t max koby: 132.9 cm/sec Ao V2 max: 157.9 cm/sec MV max P.7 mmHg MV P1/2t: 95.3 msec Ao max P.0 mmHg MV V2 mean: 97.6 cm/sec MV dec slope: 408.6 cm/sec2 Ao V2 mean: 98.8 cm/sec MV mean P.5 mmHg MVA(P1/2t): 2.3 cm2 Ao mean P.6 mmHg MV V2 VTI: 46.1 cm Ao V2 VTI: 23.3 cm LV V1 max: 111.0 cm/sec PA V2 max: 129.0 cm/sec TR max koby: 250.7 cm/sec LV V1 max P.1 mmHg TR max P.2 mmHg LV V1 mean P.4 mmHg LV V1 mean: 71.5 cm/sec LV V1 VTI: 18.4 cm Interpretation Summary Status post mitral valve repair. Status post mitral valve repair with annuloplasty ring. Normal LV size. Left ventricular systolic function is normal. The estimated ejection fraction is 55 %. Stage 1 diastolic dysfunction. The global longitudinal strain = -20.4 % (normal). Pulmonary artery systolic pressure is 29 mmHg. Compared to prior study, there is no significant change. Ordering Physician: Mejia Shin Referring Physician: Kylah Hanna Performed By: Jose Beltre RCS
== END ==
PROVIDERS: Family Provider Internal Medicine; PCP Internal Medicine; Referring Provider Internal Medicine Cardiovascular Disease; Visit Provider Internal Medicine Cardiovascular Disease
DX: Z98.890 Other specified postprocedural states (principal)
CPT/HCPCS: 0399T; 93306

== ENCOUNTER → 2018-03-24 10:19 | Outpatient (CLI) | payer BC, SELFPAY ==
--- NOTE | 2018-03-24 11:00 | PET_ITS ---
EXAMINATION: FDG PET/CT INDICATIONS: A 63-year-old male with reported history of lymphoma presenting for restaging examination. COMPARISON EXAMINATION: Previous FDG PET study dated 11/18/17, CT of the chest, abdomen and pelvis reports dated 02/10/18 INDEX LESION SIZE LUGANO SCORE SUV INTERPRETATION PERSISTENT: mediastinal structures decreased overall number 14.2 x 17.8-mm (largest) (frame 209) 4 comp. to 5 (11/18/17) 2.9 (max) comp. to 16.8 (11/18/17) Fulfills qualitative criteria for viable neoplasm, interim metabolic improvement-quantitative partial metabolic response PREVIOUS: all additional prior defined hypermetabolic foci Demonstrate metabolic resolution on the current examination TECHNIQUE: Following the intravenous administration of 11.77 mCi of F-18 deoxyglucose via the left antecubital fossa, multiplanar image acquisitions of the neck, chest, abdomen and pelvis to level of mid thigh, obtained at one hour post radiopharmaceutical administration contemporaneously interpreted with the current CT of the neck, chest, abdomen and pelvis to level of mid thigh, dated 03/24/18 via coregistration and previous FDG PET study dated 11/18/17, CT of the chest, abdomen and pelvis reports dated 02/10/18 reveal: SERUM GLUCOSE LEVEL: 97 mg/dl. HEIGHT: 69 inches. WEIGHT: 185 lbs. FINDINGS: 1. Several subtle foci of increased glucose metabolism remain apparent in the mediastinum and thoracic perihilum generating a current calculated maximal standard uptake value of 2.9, compared to 16.8 defined on the FDG PET study dated 11/18/17. The [place] Deauville score is 4, compared to 5 demonstrated on the previous FDG PET study dated 11/18/17. The maximal axial diameter of the most conspicuous metabolic abnormality on the present examination is approximately 14.2-mm (transverse) x 17.8-mm (AP). 2. Several nodular foci of increased glucose concentration are newly apparent in the right lower anterior, anterolateral hemithorax pulmonary parenchyma generating a calculated maximal standard uptake value of 2.7. The largest corresponding parenchymal density on review of CT of the chest dated 03/24/18 demonstrates a maximal axial diameter of 12.8-mm (transverse). 3. Normal physiologic distribution of the radiopharmaceutical is apparent in the hepatic (2.9) and splenic parenchyma, both renal units, bladder and visualized intestinal tract. The visualized portion of the cerebral cortex demonstrate symmetric and preserved glucose metabolism. Diffuse radiopharmaceutical concentration is noted in all four quadrants of the abdomen and pelvis. There is homogenous enhanced glucose concentration evidenced in the visualized appendicular and axial skeletal structures. Prominent glucose metabolism is defined in the descending thoracic aorta. All additional prior defined hypermetabolic abnormalities described on the FDG PET study dated 11/18/17 are not apparent on the current examination. Previously defined morphologic-anatomic changes noted on review of CT of the neck, chest, abdomen and pelvis on the FDG PET-CT report dated 11/18/17, are essentially unchanged on the current examination. PET/PET/CT Tumor Base -Thigh Subs IMPRESSION: 1. Increased glucose metabolism manifest in several locations within the mediastinum and bilateral thoracic perihilum continue to fulfill qualitative criteria for neoplastic infiltration. (Stefanie et al, Journal of Clinical Oncology 25:579, 2007). 2. Newly identified increased FDG uptake noted in the right lower anterior lung zone likely represents an inflammatory process-pneumonitis. 3. There is interim metabolic resolution of all prior defined additional hypermetabolic foci. 4. Homogeneous increased radiopharmaceutical concentration noted in the visualized appendicular and axial skeletal structures is commensurate with the hematopoietic response to chemotherapeutic intervention. (Sugawara et al, Journal of Clinical Oncology 16:173, 1998). 5. Overall, compared to the prior FDG PET study dated 11/18/17, there is apparent persistent viable neoplasm noted in several locations within the context of the mediastinal structures manifesting interval quantitative partial metabolic response. There is an interim quantitative complete metabolic response relating to all additional prior defined hypermetabolic foci. Electronic Signature Basil Neville D.O. Electronically Signed: Basil Neville DO at 23:56 EST Tel , Service support ,
== END ==
PROVIDERS: Family Provider Internal Medicine; PCP Internal Medicine; Visit Provider Internal Medicine Hematology & Oncology
DX: C83.38 Diffuse large B-cell lymphoma, lymph nodes of multiple sites (principal)
CPT/HCPCS: 78815; A9552

== ENCOUNTER 2018-09-08 15:17 | Emergency (ER) | payer BC, SELFPAY ==
[2018-09-08 15:21] VITALS: BP 161/86; PULSE 64; RESP 18; TEMP 36.6; O2SAT 97; BMI 29.4
--- NOTE | 2018-09-08 16:27 | CT_ITS ---
STUDY: CT BRAIN WITHOUT CONTRAST REASON FOR EXAM: Male, 63 years old. Mental status change RADIATION DOSAGE (If Supplied By Facility): CTDIvol = ( 44.99 ) mGy, DLP = ( 779.24 ) mGycm TECHNIQUE: Transaxial CT imaging of the brain was performed without administration of intravenous contrast material. Individualized dose optimization techniques were used for this CT. COMPARISON: No relevant priors. FINDINGS: There is a large right parietal/occipital scalp hematoma without skull fracture. Normal calvarium. Normal size ventricles and extra-axial spaces for the patient's age. Normal white matter tracts of the cerebral hemispheres. Normal basal ganglia and thalami. Normal brainstem. Normal cerebellum. There is no intracranial hemorrhage. There are no findings of an acute ischemic infarction. There is mucoperiosteal inflammatory disease of the paranasal sinuses consistent with moderate chronic sinusitis. CT/Brain/Head without Contrast IMPRESSION: Age-related changes, no acute findings Large right parietal/occipital scalp hematoma without skull fracture Paranasal sinusitis Electronically Signed: Caleb Mcadams MD at 17:13 EDT , Service support ,
--- NOTE | 2018-09-08 16:28 | ED.VISSUMM ---
- ER Visit Summary Date of Service: 09/08/18 Chief Complaint: Right drooping eyelid History of Present Illness: The patient is a 63 M sent by a surgeon office after a call reporting drooping above right eyelid this morning. Status post scalp biopsy [address] Phelps. Mild pain around the site, however no headache or vision changes. No speech changes. No hemiparesis. Reports yesterday evening no little redness at the right maxillary region. He called the office was sent here for CAT scan of the brain. History of B cell lymphoma followed by Dr. Herzog.last chemo treatment was February 2018. No fevers. Physical Examination: General: Alert and oriented ?3, no acute distress HEENT: Normocephalic, atraumatic. Moist mucosa membranes. Slight droop right above right lateral eyebrow, there is forehead sparing there is no facial drooping. Scalp examination scabbing posterior right crown, induration noted. No drainage. Neck: supple, nontender. Cardiovascular: Regular rate and rhythm, no murmurs Respiratory: Normal breath sounds, symmetric, no distress Abdomen: Soft, nontender, nondistended Extremities: Nontender, no edema, pulses intact ?4 Neuro: no focal neurological deficits. Test Results: CT brain: No intracranial process reported right parietal scalp hematoma per radiology Emergency Department Course and Treatment: Patient has slight degree right lateral eyelid. This is not Wong's palsy, this is not stroke in nature. However he does have induration posterior scalp. Sent in for CT brain report radiology scalp hematoma. I did discuss with Dr. Phelps, reports his biopsy returned as lymphoma that is recurrent. He had some lymphadenopathy, she requests antibiotics of Keflex started. First dose in the ED. He will follow-up with her and Dr. Herzog. He is updated on findings. Follow-up instructions given. All questions answered. Treatment Plan: [] Disposition: Discharge Impression: Lymphoma of scalp This note was generated with [employer] dictation software. It may contain incorrect words, spelling, and punctuation that were not noted in review of the chart prior to signing ED Disposition - Plan for ED Patient: Disposition: Home or Assisted Living Diagnosis: Lymphoma of scalp Prescriptions: Cephalexin [Keflex] 500 mg PO Q6 #40 capsule Referrals: Kylah Hanna DO [Primary Care Provider] - Zakiya Phelps MD [STAFF PHYSICIAN] - 3-5 Days Zac Herzog DO [STAFF PHYSICIAN] - 3-5 Days Additional Instructions: Per Dr. Phelps, biopsy of scalp confirms recurrent lymphoma. Follow-up with her and Dr. Herzog. Take antibiotic as prescribed.
[2018-09-08] MEDS: Cephalexin 250 MG Capsule 500 MG PO (17:47)
== END 2018-09-08 17:51 | disposition home or self-care (01) ==
PROVIDERS: Emergency Provider Emergency Medicine; Family Provider Internal Medicine; PCP Internal Medicine
DX: C85.81 Other specified types of non-Hodgkin lymphoma, lymph nodes of head, face, and neck (principal); I10 Essential (primary) hypertension; Z79.01 Long term (current) use of anticoagulants; Z79.899 Other long term (current) drug therapy; Z92.21 Personal history of antineoplastic chemotherapy
CPT/HCPCS: 70450; 99283

== ENCOUNTER 2018-10-04 08:48 | Outpatient (CLI) | payer BC, SELFPAY ==
[2018-10-04 09:40] VITALS: BP 120/76; PULSE 68; RESP 16; TEMP 36.7; O2SAT 97
[2018-10-04 09:53] VITALS: BP 110/66; PULSE 66; RESP 16; TEMP 36.7; O2SAT 95
[2018-10-04 10:14] VITALS: BP 121/67; PULSE 68; RESP 16; TEMP 36.7; O2SAT 97
[2018-10-04] MEDS: 0.9% NaCl VAD Flush 10 ML IV (10:17)
== END 2018-10-04 10:15 | disposition home or self-care (01) ==
LOC: MEDOUTP 08:49 → PCU 08:52
PROVIDERS: Family Provider Internal Medicine; PCP Internal Medicine; Referring Provider Internal Medicine Hematology & Oncology; Visit Provider Internal Medicine Hematology & Oncology
DX: Z51.89 Encounter for other specified aftercare (principal); C83.38 Diffuse large B-cell lymphoma, lymph nodes of multiple sites
CPT/HCPCS: 36430; 86900; 86965; J7040; P9037; A4216

== ENCOUNTER → 2019-04-04 08:07 | Outpatient (CLI) | payer BC, SELFPAY ==
[2019-03-17 12:27] VITALS: BMI 31.6
[2019-04-04 08:13] LABS: Bacteria 0 SEEN /hpf (None Seen); Mucous, Urine 0 SEEN /hpf (<or=2+); Red Blood Cells-Urine 0 SEEN /hpf (0-5); White Blood Cells 0 SEEN /hpf (0-5)
[2019-04-04 08:52] LABS: Color, Urine Yellow (Yellow); Glucose, Dipstick Normal (Normal); Ketone-Dipstick Negative (Negative); Leukocyte Esterase-Dipstick Negative /ul (Negative); Nitrite-Dipstick Negative (Negative); Occult Blood-Urine Negative /ul (Negative); Protein-Dipstick Negative (Negative); Urine Bilirubin Dipstick Negative (Negative); Urine Clarity Clear (Clear); Urine Urobilinogen Normal (Normal); Urine pH 6.5 (5.0 - 8.0)
[2019-04-04 08:53] LABS: Absolute Lymphocyte Count 0.78 X10^3/uL (0.83-4.51); Absolute Neutrophil Count 2.6 X10^3/uL (2.0-7.7); Basophil# 0.02 X10^3/uL; Basophil% 0.5 % (0-1); Eosinophil# 0.14 X10^3/uL; Eosinophils% 3.2 % (0-5); Hemoglobin 10.8 g/dL (13.0-16.5); Lymphocyte # 0.78 X10^3/ul (4.0); Lymphocyte % 18.1 % (19-41); Mean Corp Hgb Conc 31.8 g/dL (32-36); Mean Corpuscular Hgb 31.2 pg (27.0-32.0); Mean Corpuscular Volume 98.3 fL (80-94); Mean Platelet Vol. 10.6 fl (6.2-12.0); Monocyte# 0.71 X10^3/uL; Monocyte% 16.5 % (0-10); NRBC Flagged by Analyzer 0 % (0-5); Neutrophil # 2.56 X10^3/uL (2.7-7.7); Neutrophil % 59.4 % (47-70); POSITIVE COUNT YES; Platelet Count 66 K/mm3 (150-450); RBC Distribution Width CV 14.6 % (11.6-14.6); RBC Distribution Width SD 53.1 fl (35.1-43.9); Red Blood Count 3.46 M/mm3 (4.6-6.2); White Blood Count 4.3 K/mm3 (4.4-11.0)
[2019-04-04 09:03] LABS: Squamous Epithelial Cells - UA 0-5 SEEN /hpf (0-5)
[2019-04-04 09:21] LABS: Microalbumin,Random Urine < 5.0 mg/L (NO RANGE EST.)
[2019-04-04 09:29] LABS: ALB/GLOB Ratio 1.1 RATIO (0.9-2.4); AST(SGOT) 30 U/L (15-37); Alanine Aminotransfer ALT/SGPT 19 U/L (16-61); Albumin, Serum 3.3 g/dL (3.2-5.0); Alkaline Phosphatase 90 U/L (45-117); Anion Gap 6 (5-15); BUN 13 mg/dL (7-18); BUN/Creat Ratio 18.9 RATIO (10-20); Calcium,Total 8.7 mg/dL (8.5-10.1); Chloride 110 mmol/L (98-107); Creatinine, Serum 0.69 mg/dL (0.70-1.30); EST Glomerular Filtration Rate 124 mL/min (>60); Est Glom Filt Rate - Afr Amer 150 mL/min (>60); Globulin 2.9 g/dL (2.2-4.2); Glucose 111 mg/dL (74-106); Potassium 4.2 mmol/L (3.5-5.1); Protein, Total 6.2 g/dL (6.4-8.2); Sodium Level 142 mmol/L (136-145); Thyroid Stim Hormone (TSH) 1.53 uIU/mL (0.358-3.74)
[2019-04-06 10:52] LABS: Vitamin D,25 Hydroxy 47.2 ng/mL (29.95-100.01)
[2019-04-06 20:07] LABS: CHOLESTEROL TOTAL 239 mg/dL (100-199); HDL-C 45 mg/dL (>39); HDL-P TOTAL 25.7 umol/L (>=30.5); SMALL LDL-P 472 nmol/L (<=527); TRIGLYCERIDES 81 mg/dL (0-149)
[2019-04-06 20:42] LABS: INSULIN RESISTANCE SCORE 30 (<=45); LDL SIZE 21.6 nm (>20.5); LDL-C 178 mg/dL (0-99); LDL-P 1971 nmol/L (<1000)
== END ==
LOC: LAB.FUTURE 08:08 → LAB 04-06 06:43
PROVIDERS: Family Provider Internal Medicine; PCP Internal Medicine; Referring Provider Internal Medicine; Visit Provider Internal Medicine
DX: Z51.89 Encounter for other specified aftercare (principal); E11.9 Type 2 diabetes mellitus without complications; I10 Essential (primary) hypertension; E78.00 Pure hypercholesterolemia, unspecified; E55.9 Vitamin D deficiency, unspecified
CPT/HCPCS: 36415; 80053; 80061; 81001; 82043; 82306; 82570; 83704; 84443; 85025

== ENCOUNTER 2019-09-18 14:29 | Emergency (ER) | payer OTHER, SELFPAY ==
[2019-03-17 12:27] VITALS: BMI 31.6
[2019-09-18 14:30] VITALS: BP 122/71; PULSE 73; RESP 16; TEMP 36.7; O2SAT 98
[2019-09-18 14:31] VITALS: BP 122/71; PULSE 73; RESP 16; TEMP 36.7; O2SAT 98; BMI 33.1
--- NOTE | 2019-09-18 14:50 | EKG12_ITS ---
Test Reason : ILLNESS Blood Pressure : / mmHG Vent. Rate : 069 BPM Atrial Rate : 069 BPM P-R Int : 188 ms QRS Dur : 094 ms QT Int : 394 ms P-R-T Axes : 048 -37 087 degrees QTc Int : 422 ms Normal sinus rhythm Left axis deviation Nonspecific T wave abnormality Abnormal ECG Confirmed by ZOË JAMISON, KYLER ([id number]), editor in chief newspaper [employer] GONZALEZ ([id number]) on 09/21/2019 2:27:47 PM Referred By: JAVAN Confirmed By:KYLER CAMP MD
--- NOTE | 2019-09-18 14:52 | CT_ITS ---
STUDY: CT BRAIN WITHOUT CONTRAST REASON FOR EXAM: Male, 64 years old. AMS RADIATION DOSAGE (If Supplied By Facility): CTDIvol = ( 60.81 ) mGy, DLP = ( 1067.08 ) mGycm TECHNIQUE: Transaxial CT imaging of the brain was performed without administration of intravenous contrast material. Individualized dose optimization techniques were used for this CT. COMPARISON: Comparison is made with prior study dated September 08, 2018. FINDINGS: Normal soft tissue structures. Normal calvarium. There is mild cerebral atrophy with widening of the extra-axial spaces and ventricular dilatation. There are areas of decreased attenuation within the white matter tracts of the supratentorial brain, consistent with microvascular disease changes. There is a 2.9 cm x 3.1 cm hypodensity with central area of increased density in the right thalamus. Surrounding edema. There is also evidence of a 2.2 cm x 1.9 cm nodular density in the posterior left parietal lobe with surrounding edema. Metastatic deposits should be ruled out. Normal brainstem. Normal cerebellum. There is no intracranial hemorrhage. There are no findings of an acute ischemic infarction. Normal visualized paranasal sinuses. CT/Brain/Head without Contrast IMPRESSION: Chronic involutional changes of the brain. Possible metastatic disease as described. Follow-up examination with IV contrast is recommended. Electronically Signed: Chris Nathan, at 15:53 EDT , Service support ,
--- NOTE | 2019-09-18 15:05 | ED.VIS.GEN ---
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 Patient has had progressive weakness over the last 2 to 3 weeks but specifically worsening over the last 1 week. He is having trouble standing up on his own from a seated position and he has been a 2 person assist over the last week. He states that he is not really feeling weak anywhere else besides his legs. He is not having any leg pain or back pain or any muscular pain at this time. Patient has numbness of his feet which is chronic but no worsening weakness or paresthesias. No falls injuries or traumas. No fevers. No cough. No shortness of breath. No chest pain. No vomiting or diarrhea. No melena or hematochezia. He has urinary frequency specifically at night slightly worsening than his baseline but no dysuria or hematuria. He has been able to eat and drink normally but his appetite is slightly worse than normal. He has no headache or neck pain he does not feel lightheaded or dizzy he has not had any difficulty with speech and he has no difficulties with his vision. Prior similar symptoms: Yes Recent Illness/Hospitalization: No <Boby Del Real - Last Filed: 09/18/19 15:44> <Elie Villanueva - Last Filed: 09/18/19 16:30> Chief Complaint: Complaint Past Medical History Prior records reviewed: Yes Past Medical History: - - Non-Hodgkin's B-cell lymphoma, hypertension, mitral valve disease status post replacement, DVT on Xarelto Surgical History: herniorrhaphy, - - Heart valve repair; surgery on right ear Lives: With Family Smoking Status: Never smoker Alcohol: None Drugs: None - Family History Paternal Family History: Family History (Last Reviewed 03/17/19 @ 12:27 by Natali Limon) Father CAD (coronary artery disease) CVA (cerebral vascular accident) Mother Heart disease Brother Cancer Family History: Reports: Cancer - lung, - - stroke Maternal Family History: Family History (Last Reviewed 03/17/19 @ 12:27 by Natali Limon) Father CAD (coronary artery disease) CVA (cerebral vascular accident) Mother Heart disease Brother Cancer Family History: Reports: Heart Disease <Boby Del Real - Last Filed: 09/18/19 15:44> - Family History Paternal Family History: Family History (Last Reviewed 03/17/19 @ 12:27 by Natali Limon) Father CAD (coronary artery disease) CVA (cerebral vascular accident) Mother Heart disease Brother Cancer Maternal Family History: Family History (Last Reviewed 03/17/19 @ 12:27 by Natali Limon) Father CAD (coronary artery disease) CVA (cerebral vascular accident) Mother Heart disease Brother Cancer <Elie Villanueva - Last Filed: 09/18/19 16:30> - Allergies and Home Meds Allergies/Adverse Reactions: Allergies No Known Allergies Allergy (Verified 03/17/19 12:28) Primary Care Physician: Kylah Hanna DO [Primary Care Provider] - Review of Systems All systems negative except as indicated General: Reports: Malaise. Denies: Chills, Fever, Subjective, Sweats, Weight loss Eyes: Denies: Visual changes - bilaterally, Blurred Vision - bilaterally, Diplopia ENT: Denies: Bilateral ear pain, Rhinorrhea, Sore throat Cardiovascular: Denies: Chest pain, Palpitations, Heart racing Respiratory: Denies: Dyspnea, Cough, Sputum, Dyspnea on exertion, Orthopnea, Paroxysmal nocturnal dyspnea Gastrointestinal: Denies: Abdominal pain, Nausea, Vomiting, Diarrhea, Constipation, Melena, Hematochezia Genitourinary: Reports: Frequency. Denies: Dysuria, Hematuria Musculoskeletal: Denies: Myalgias, Arthralgias, Neck pain, Back pain, Swelling, Extremity Pain Skin: Denies: Rash, Abscess, Abrasions, Wounds Neurological: Denies: Headache, Weakness, Parasthesia, Numbness Hematologic: Reports: Easy bruising. Denies: Easy bleeding <Boby Del Real - Last Filed: 09/18/19 15:44> Physical Exam Vital Signs/Narrative: Vital Signs Temp Pulse Resp BP Pulse Ox 09/18/19 14:31 98.0 F 73 16 122/71 H 98 09/18/19 14:30 98.0 F 73 16 122/71 H 98 Inital Vital Signs reviewed: Yes General: Well nourished, Well developed, No Acute Distress Head: Normocephalic, Atraumatic Eyes: Perrl, EOMI ENT: Moist mucous membranes Neck: Supple, Nontender, No lymphadenopathy, No JVD Cardiovascular: Regular rate, Regular rhythm, No murmurs Respiratory: No distress, CTA bilaterally, Chest nontender Abdomen: Soft, Normal bowel sounds, No masses Back: Nontender, Normal Inspection Extremities: Nontender, No edema Skin: Normal color, No rash, No Trauma Neurological: Alert, Oriented x3, Normal Strength, Normal Sensation Psychological: Normal affect, Normal Mood <Boby Del Real - Last Filed: 09/18/19 15:44> Vital Signs/Narrative: Vital Signs Temp Pulse Resp BP Pulse Ox 09/18/19 14:31 98.0 F 73 16 122/71 H 98 09/18/19 14:30 98.0 F 73 16 122/71 H 98 <Elie Villanueva - Last Filed: 09/18/19 16:30> Diagnostic/Tx/Re-eval - Rhythm Strip Rhythm Strip: Sinus Rhythm Rate: 70 Ectopy: None - EKG Initial EKG Interpretation: Sinus Rhythm, No Acute Injury Pattern Prior: Unchanged <Boby Del Real - Last Filed: 09/18/19 15:44> - Medical Decision Making I supervised the PA and have performed my own pertinent history and physical. Results and treatment plan were discussed. HPI: Patient has a history of large B-cell lymphoma with a bone marrow transplant in January 2013. He is had increasing weakness over the past 1 to 2 weeks. Is unable to ambulate on his own. No trauma. No fall. He denies any fever. He has had frequency at night. But he denies any dysuria. He denies any other complaints. PE: Vitals: Stable. Afebrile. General: Well-nourished and well-developed. Head: Normocephalic atraumatic. Neck: Supple, no lymphadenopathy. No JVD. Nontender. Cardiovascular: Regular rate and rhythm. No murmurs. Respiratory: No respiratory distress. Clear to auscultation bilaterally. Abdominal: Soft, nontender, nondistended, normal bowel sounds. No guarding, rebound, or peritoneal signs. Back: Nontender. Extremities: Nontender, no edema. Skin: Normal color, no rash. Neurologic: Alert and oriented ?3. Patient is slow to answer questions at time and does have slightly slurred speech. Cranial nerves II through XII are intact. Normal sensation. 4 out of 5 strength throughout. He does have prominent horizontal nystagmus. Psych: Normal affect. Test results: Clinical Impression(s) from Imaging Studies Brain CT 09/18/19 14:52 IMPRESSION: Chronic involutional changes of the brain. Possible metastatic disease as described. Follow-up examination with IV contrast is recommended. Electronically Signed: Chris Nathan, at 15:53 EDT , Service support , Chest X-Ray 09/18/19 15:28 IMPRESSION: No acute abnormality is seen. Electronically Signed: Chris Nathan, at 15:49 EDT , Service support , Abnormal Lab Results 09/18/19 09/18/19 09/18/19 15:07 15:07 15:07 WBC 6.1 RBC 4.44 L Hgb 13.8 Hct 42.3 MCV 95.3 H MCH 31.1 MCHC 32.6 RDW Std Deviation 51.6 H RDW Coeff of Augusto 14.7 H Plt Count 74 L MPV 9.3 Immature Gran % (Auto) 0.300 Neut % (Auto) 51.8 Lymph % (Auto) 30.5 [place] % (Auto) 13.5 H Eos % (Auto) 3.6 Baso % (Auto) 0.3 Absolute Neuts (auto) 3.2 Absolute Lymphs (auto) 1.86 Nucleated RBC % 0 Sodium 140 Potassium 4.1 Chloride 107 Carbon Dioxide 28.0 Anion Gap 5 BUN 14 Creatinine 0.85 Estim Creat Clear Calc 80.27 Est GFR (MDRD) Af Amer 116 Est GFR (MDRD) Non-Af 96 BUN/Creatinine Ratio 16.4 Glucose 105 Calcium 9.0 TSH 1.30 Urine Color Yellow Urine Clarity Sl. Cloudy Urine pH 6.0 Ur Specific [place] 1.015 Urine Protein Negative Urine Glucose (UA) Normal Urine Ketones Negative Urine Occult Blood Negative Urine Nitrite Negative Urine Bilirubin Negative Urine Urobilinogen Normal Ur Leukocyte Esterase Negative Urine RBC 0 SEEN Urine WBC 0 SEEN Ur Squamous Epith Cells 0-5 SEEN Amorphous Sediment 1+ URATE Urine Bacteria 0 SEEN Urine Mucus 0 SEEN Emergency Department course: Patient was given morphine and dexamethasone IV. He is resting comfortably. Treatment Plan: The patient was discussed with Dr. Herzog. He will be transferred to [facility] for further evaluation and treatment. Disposition: Transferred in serious condition. This note was generated with [employer] dictation software. It may contain incorrect words, spelling, and punctuation that were not noted in review of the chart prior to signing. <Elie Villanueva - Last Filed: 09/18/19 16:30> ED Disposition <Boby Del Real - Last Filed: 09/18/19 15:44> <Elie Villanueva - Last Filed: 09/18/19 16:30> - Plan for ED Patient: Disposition: [facility] - Main Diagnosis: Brain metastases, Nystagmus Referrals: Kylah Hanna DO [Primary Care Provider] -
[2019-09-18 15:13] LABS: Bacteria 0 SEEN /hpf (None Seen); Mucous, Urine 0 SEEN /hpf (<or=2+); Red Blood Cells-Urine 0 SEEN /hpf (0-5); White Blood Cells 0 SEEN /hpf (0-5)
[2019-09-18 15:17] LABS: Absolute Lymphocyte Count 1.86 X10^3/uL (0.83-4.51); Absolute Neutrophil Count 3.2 X10^3/uL (2.0-7.7); Basophil# 0.02 X10^3/uL; Basophil% 0.3 % (0-1); Color, Urine Yellow (Yellow); Eosinophil# 0.22 X10^3/uL; Eosinophils% 3.6 % (0-5); Glucose, Dipstick Normal (Normal); Hematocrit 42.3 % (40-54); Hemoglobin 13.8 g/dL (13.0-16.5); Ketone-Dipstick Negative (Negative); Leukocyte Esterase-Dipstick Negative /ul (Negative); Lymphocyte # 1.86 X10^3/ul (4.0); Lymphocyte % 30.5 % (19-41); Mean Corp Hgb Conc 32.6 g/dL (32-36); Mean Corpuscular Hgb 31.1 pg (27.0-32.0); Mean Corpuscular Volume 95.3 fL (80-94); Mean Platelet Vol. 9.3 fl (6.2-12.0); Monocyte# 0.82 X10^3/uL; Monocyte% 13.5 % (0-10); NRBC Flagged by Analyzer 0 % (0-5); Neutrophil # 3.15 X10^3/uL (2.7-7.7); Neutrophil % 51.8 % (47-70); Nitrite-Dipstick Negative (Negative); Occult Blood-Urine Negative /ul (Negative); POSITIVE COUNT YES; Platelet Count 74 K/mm3 (150-450); Protein-Dipstick Negative (Negative); RBC Distribution Width CV 14.7 % (11.6-14.6); RBC Distribution Width SD 51.6 fl (35.1-43.9); Red Blood Count 4.44 M/mm3 (4.6-6.2); Specific Gravity, Urine 1.015 (1.002-1.030); Urine Bilirubin Dipstick Negative (Negative); Urine Clarity Sl. Cloudy (Clear); Urine Urobilinogen Normal (Normal); White Blood Count 6.1 K/mm3 (4.4-11.0)
[2019-09-18 15:24] LABS: Amorphous Sediment 1+ URATE; Squamous Epithelial Cells - UA 0-5 SEEN /hpf (0-5)
--- NOTE | 2019-09-18 15:28 | RAD_ITS ---
STUDY: X-RAY CHEST REASON FOR EXAM: Male, 64 years old. C/O PROBLEMS URINATING C/O FREQUENCY FOR 10 DAYS PER PT. PT DOES HAVE A DRY COUGH INTERMITTENTLY FOR 2 MONTHS NO FEVER PER PT. HX OF LYMPHOMA. TECHNIQUE: AP and lateral views of the chest. COMPARISON: Comparison is made with prior study dated February 12, 2018. FINDINGS: Left-sided portacatheter. The tip is in the midportion of the superior vena cava. The lungs are clear and expanded. There is no demonstrated pleural abnormality. Normal size heart. Prior mitral replacement. Normal mediastinum and karyna. Normal visualized pulmonary arteries. There is atherosclerotic tortuosity of the aortic arch and descending thoracic aorta. There are diffuse degenerative changes of the visualized thoracic spine. Status post right shoulder replacement. There is no demonstrated abnormality of the visualized soft tissue structures of the upper abdomen. RAD/Chest PA and Lateral IMPRESSION: No acute abnormality is seen. Electronically Signed: Chris Nathan, at 15:49 EDT , Service support ,
[2019-09-18 15:37] LABS: Anion Gap 5 (5-15); BUN 14 mg/dL (7-18); BUN/Creat Ratio 16.4 RATIO (10-20); Chloride 107 mmol/L (98-107); Creatinine, Serum 0.85 mg/dL (0.70-1.30); EST Glomerular Filtration Rate 96 mL/min (>60); Est Glom Filt Rate - Afr Amer 116 mL/min (>60); Estimated Creatinine Clearance 80.27 ml/min; Glucose 105 mg/dL (74-106); Potassium 4.1 mmol/L (3.5-5.1); Sodium Level 140 mmol/L (136-145)
[2019-09-18 17:03] VITALS: BP 154/90; PULSE 72; RESP 19; O2SAT 99
[2019-09-18] MEDS: dexAMETHasone 10 MG/ML Vial IV (17:04)
[2019-09-18] MEDS: Morphine 2 MG/ML Syringe IV (17:04)
--- NOTE | 2019-09-18 17:40 | ED.RN ---
CAITLIN HUFF CALLED AND GIVEN ROOM ASSIGNMENT AND PHONE NUMBER FOR [facility].
[2019-09-18 18:09] VITALS: BP 148/82; PULSE 70; RESP 16; TEMP 36.6; O2SAT 99
--- NOTE | 2019-09-18 18:33 | ED.RN ---
NOTIFIED PTS FAMILY THAT THE PT IS HEADING UP TO [facility]
== END 2019-09-18 18:34 | disposition short-term general hospital (02) ==
PROVIDERS: Emergency Provider Physician Assistant Medical; PCP Internal Medicine
DX: C79.31 Secondary malignant neoplasm of brain (principal); H55.00 Unspecified nystagmus; I10 Essential (primary) hypertension; Z85.72 Personal history of non-Hodgkin lymphomas; Z86.718 Personal history of other venous thrombosis and embolism; Z79.01 Long term (current) use of anticoagulants
CPT/HCPCS: 70450; 71046; 80048; 81001; 84443; 85025; 93005; 96374; 96375; 99285; A4216

== ENCOUNTER → 2020-01-04 | Outpatient (CLI) | payer OTHER, SELFPAY ==
--- NOTE | 2020-01-04 11:45 | US_ITS ---
STUDY: RENAL ULTRASOUND - COMPLETE REASON FOR EXAM: Male, 64 years old. Elevated BUN/creatinine TECHNIQUE: Ultrasound evaluation of the kidneys was performed with real-time and static marrero-scale imaging. COMPARISON: None. FINDINGS: RIGHT KIDNEY: Normal location of the right kidney, which is normal in size. The right kidney measures 10.8 x 5.8 x 5.9 cm. There is a normal cortex of the right kidney. The renal cortex measures 2.1 cm. There are 2 simple cysts, largest measures 1 x 1 x 0.9 cm There are no right renal calculi. There is no right hydronephrosis. DISTAL RIGHT URETER: There is non-visualization of the distal right ureter. There is no demonstrated right ureterovesical junction calculus. There is a visualized right ureteral jet. LEFT KIDNEY: Normal location of the left kidney, which is normal in size. The left kidney measures 11.6 x 5.8 x 5.7 cm. There is a normal cortex of the left kidney. The renal cortex measures 1.8 cm. There is no left renal mass or cyst. There is a nonobstructing 8 mm stone. There is no left hydronephrosis. DISTAL LEFT URETER: There is non-visualization of the distal left ureter. There is no demonstrated left ureterovesical junction calculus. There is a visualized left ureteral jet. AORTA: There is no elongation or tortuosity of the abdominal aorta. There is no demonstrated aneurysm.. I.V.C.: The IVC is patent. BLADDER: The bladder is sonographically normal US/Kidney and Bladder IMPRESSION: No obstructive uropathy or suspicious solid renal lesion Simple right renal cysts, no specific follow-up needed Nonobstructing left nephrolithiasis Electronically Signed: Caleb Mcadams MD at 15:46 EDT , Service support ,
== END | disposition home or self-care (01) ==
LOC: US 11:42
PROVIDERS: PCP Internal Medicine; Referring Provider Internal Medicine Hematology & Oncology; Visit Provider Internal Medicine Hematology & Oncology
DX: N17.9 Acute kidney failure, unspecified (principal)
CPT/HCPCS: 76770

== ENCOUNTER → 2020-02-18 14:21 | Outpatient (CLI) | payer OTHER, SELFPAY ==
[2020-02-18 15:52] LABS: Hemoglobin 8.3 g/dL (13.0-16.5); Mean Corp Hgb Conc 33.2 g/dL (32-36); Mean Corpuscular Hgb 34.7 pg (27.0-32.0); Mean Corpuscular Volume 104.6 fL (80-94); Mean Platelet Vol. 9.5 fl (6.2-12.0); Platelet Count 104 K/mm3 (150-450); RBC Distribution Width CV 15.1 % (11.6-14.6); RBC Distribution Width SD 58.2 fl (35.1-43.9); Red Blood Count 2.39 M/mm3 (4.6-6.2)
[2020-02-18 16:15] LABS: Albumin, Serum 3.5 g/dL (3.2-5.0); BUN 57 mg/dL (7-18); BUN/Creat Ratio 14.5 RATIO (10-20); Calcium,Total 9.1 mg/dL (8.5-10.1); Chloride 108 mmol/L (98-107); Creatinine, Serum 3.92 mg/dL (0.70-1.30); EST Glomerular Filtration Rate 17 mL/min (>60); Est Glom Filt Rate - Afr Amer 20 mL/min (>60); Glucose 106 mg/dL (74-106); Phosphorus 4.5 mg/dL (2.5-4.9); Sodium Level 137 mmol/L (136-145)
[2020-02-19 08:45] LABS: PTHIN 55.7 pg/mL (18.4-80.1)
== END ==
PROVIDERS: PCP Internal Medicine; Visit Provider Internal Medicine Nephrology
DX: N18.4 Chronic kidney disease, stage 4 (severe) (principal)
CPT/HCPCS: 36415; 80069; 83970; 85027

== ENCOUNTER → 2020-03-15 08:52 | Outpatient (CLI) | payer OTHER, SELFPAY ==
[2020-03-15] VITALS (8 sets, daily range): BP systolic 105–154; BP diastolic 65–96; PULSE 65–86; RESP 16–18; TEMP 36.2–37.1; O2SAT 93–96
[2020-03-15] MEDS: Acetaminophen 325 MG Tablet 650 MG PO (09:48)
== END ==
PROVIDERS: PCP Internal Medicine; Referring Provider Internal Medicine Hematology & Oncology; Visit Provider Internal Medicine Hematology & Oncology
DX: Z51.89 Encounter for other specified aftercare (principal); D64.9 Anemia, unspecified; C85.90 Non-Hodgkin lymphoma, unspecified, unspecified site
CPT/HCPCS: 36430; 86850; 86900; 86901; 86920; 86922; J7040; P9040; A4216

== ENCOUNTER → 2020-05-31 09:15 | Outpatient (CLI) | payer BC, SELFPAY ==
[2020-05-31 08:27] VITALS: BMI 30.7
[2020-05-31 10:42] LABS: Albumin, Serum 3.2 g/dL (3.2-5.0); BUN 18 mg/dL (7-18); BUN/Creat Ratio 16.4 RATIO (10-20); Calcium,Total 9.2 mg/dL (8.5-10.1); Chloride 108 mmol/L (98-107); EST Glomerular Filtration Rate 72 mL/min (>60); Est Glom Filt Rate - Afr Amer 87 mL/min (>60); Glucose 133 mg/dL (74-106); Phosphorus 3.3 mg/dL (2.5-4.9); Potassium 3.4 mmol/L (3.5-5.1); Sodium Level 138 mmol/L (136-145)
== END ==
PROVIDERS: PCP Internal Medicine; Referring Provider Internal Medicine Nephrology; Visit Provider Internal Medicine Nephrology
DX: N17.9 Acute kidney failure, unspecified (principal)
CPT/HCPCS: 36415; 80069

== ENCOUNTER → 2020-09-09 08:20 | Outpatient (CLI) | payer BC, SELFPAY ==
[2020-05-31 08:27] VITALS: BMI 30.7
[2020-09-09 08:44] VITALS: BP 133/89; PULSE 89; RESP 18; TEMP 37; O2SAT 94; BMI 25.8
--- NOTE | 2020-09-09 09:00 | RAD_ITS ---
PROCEDURE: Fluoroscopic guided Lumbar Puncture. DATE: 09/09/2020 CLINICAL INDICATION: Toxoplasmosis. PHYSICIAN: Chris Nathan M.D. MEDICATIONS: 1% lidocaine administered subcutaneously for local anesthesia. ACCESS SITE: Lower posterior back. NEEDLE: 22-gauge spinal needle. SPECIMEN: Approximately 13 mL clear]CSF fluid. FLUOROSCOPY TIME (if supplied): (0:44) minutes/seconds COMPLICATIONS: None immediate. The risks, benefits, and alternatives to the procedure were explained to the patient. The specific risks of bleeding, infection, and neurovascular injury were detailed and accepted. Witnessed informed consent was obtained. The patient was placed on the fluoroscopic table in the prone position. The level for needle entry was determined and marked. The overlying skin was cleaned and prepped in the usual sterile fashion. 2% lidocaine was administered subcutaneously for local anesthesia. Under fluoroscopic guidance a 22-gauge spinal needle was advanced. The thecal sac was entered at the L3- L4 vertebral level. The inner stylet was removed. There was spontaneous flow of clear CSF fluid. The patient was placed in a reversed Trendelenburg position. Approximately 13 mL of cerebrospinal fluid was collected using gravity. The specimen was collected and submitted to the laboratory for further evaluation. The needle was withdrawn,. Hemostasis was achieved and a sterile dressing placed. The patient tolerated the procedure well without any immediate complications. The patient was placed supine with head elevated and returned to the floor in stable condition. RAD/Fluoro Guided Lumbar Puncture IMPRESSION: Successful fluoroscopic-guided lumbar puncture. Electronically Signed: Chris Nathan MD at 12:06 EDT , Service support ,
--- NOTE | 2020-09-09 09:21 | CYSPIN_PTH ---
PATIENT: JOSE FRANCISCO SANTACRUZ LOC: [facility] U#:[id number] AGE/SX: 70/M ROOM: RE09/09/[address]: Dr. Woody Reed MD : [id number] BED: DIS: SPEC #: [id number] RECD: 09/09/20 11:12 STATUS: RADHA CED #: [id number] ONDINA: 09/09/20 09:[address]: Woody Reed DEPT: CYTOLOGY RECD BY: Nakita Harrell ENTERED: 09/09/20 11:12 SP TYPE: CYSPIN FL OTHR DR: Dr. Kylah Hanna, Tissues: Cerebrospinal Fluid Procedures: Pap Stain (control) Special Stain Group II Cytospin Fluid HEADER OPERATION: Not noted PRE-OP DIAGNOSIS: DLBL NHL brain lesions TISSUE SUBMITTED: Cerebrospinal fluid for cytology DIAGNOSIS CYTOLOGY Cerebrospinal fluid for cytology (cytospin): Polymorphous lymphocytes are present. See comment. AM:joce 09/09/2020 COMMENT Clinical correlation is suggested. CYTOLOGY STUDY Slides are reviewed. CYTOLOGY GROSS Received is 3 ml of clear colorless fluid labeled with the patient's name and and designated per the requisition as CSF. Submitted for cytology preparation. / joce 09/09/2020 TC:5 CPT: 46137
[2020-09-09 09:28] VITALS: BP 162/95; PULSE 86; RESP 16; O2SAT 95
[2020-09-09 09:50] LABS: Cytology, Body Fluid / CSF SEE PATHOLOGY REPORT
[2020-09-09 10:29] LABS: Appearance CSF (character) CLEAR (Clear); CSF Color COLORLESS (Colorless); RBC Count, Spinal Fluid 1 /mm-3 (None seen); Tested Tube # 3; White Count, CSF 1 /mm-3 (0 - 5)
[2020-09-09 10:35] VITALS: BP 159/98; PULSE 78; RESP 16; O2SAT 98
[2020-09-09 11:08] LABS: Body Fluid QC Type(s) BF1,BF2
[2020-09-12 11:46] LABS: Pathologist Review Reviewed
== END ==
PROVIDERS: PCP Internal Medicine; Referring Provider Internal Medicine Hematology & Oncology; Visit Provider Internal Medicine Hematology & Oncology
DX: G93.9 Disorder of brain, unspecified (principal); C85.10 Unspecified B-cell lymphoma, unspecified site
CPT/HCPCS: 62328; 62270; 77003; 87070; 87205; 88108; 88313; 89050; 89051

== ENCOUNTER → 2021-02-03 09:59 | Outpatient (CLI) | payer BC, SELFPAY ==
[2021-02-03 10:21] LABS: Platelet Count 119 K/mm3 (150-450)
[2021-02-03 10:35] LABS: International Normalized Ratio 0.9; Partial Thromboplast Time 26.4 Seconds (24.1-36.2); Prothrombin Time (Protime)PT. 11.9 SECONDS (11.7-14.9)
[2021-02-03 10:49] VITALS: BP 104/55; PULSE 76; RESP 18; TEMP 37.1; O2SAT 97; BMI 24.3
--- NOTE | 2021-02-03 11:45 | CT_ITS ---
STUDY: CT CHEST WITHOUT CONTRAST REASON FOR EXAM: Male, 65 years old. LUNG NODULE. Patient was scheduled for CT-guided biopsy. RADIATION DOSAGE (If Supplied By Facility): CTDIvol = ( 11.11 ) mGy, DLP = ( 264.87 ) mGycm TECHNIQUE: Transaxial imaging was performed without the administration of intravenous contrast material. Multiplanar coronal and sagittal images were reformatted. Individualized dose optimization techniques were used for this CT. COMPARISON: None. FINDINGS: The previously seen nodular density in the posterior aspect of the right lower lobe has decreased in size. It presently measures 6 mm. A central cavity is seen. The biopsy was not performed. CT/Chest without Contrast IMPRESSION: The nodular density in the posterior aspect of the right lower lung has decreased in size presently measuring 6 mm. A central cavity seen within. The biopsy was not performed. Electronically Signed: Chris Nathan MD at 13:03 EDT , Service support ,
[2021-02-03] MEDS: 0.9% Saline Lock 10 ML Syringe IV (11:50)
--- NOTE | 2021-02-03 11:50 | NURSING ---
on pre procedure scan, lung area in question smaller and capsulated. lung biopsy not needed at this time. pt dicharged to home
== END | disposition home or self-care (01) ==
PROVIDERS: PCP Internal Medicine; Referring Provider Internal Medicine Hematology & Oncology; Visit Provider Internal Medicine Hematology & Oncology
DX: R91.1 Solitary pulmonary nodule (principal); C83.38 Diffuse large B-cell lymphoma, lymph nodes of multiple sites
CPT/HCPCS: 36415; 71250; 85049; 85610; 85730; J7040; A4216